=== PATIENT | female | born 1975 | race Caucasian/White ===

== ENCOUNTER 2023-04-09 14:54 | Outpatient (OUT) | payer BC, OTHER, MEDICAID, SELFPAY ==
[2023-04-09 16:27] LABS: Estimated Average Glucose 97 mg/dL; Free T3 2.45 pg/mL (2.18-3.98); Glucose 79 mg/dL (74-106); Thyroid Stimulating Hormone 0.704 uIU/mL (0.358-3.740)
[2023-04-09 17:38] LABS: Free T4 1.05 ng/dL (0.76-1.46)
[2023-04-11 04:07] LABS: Estradiol 34.1 pg/mL (.); Progesterone 0.5 ng/mL (.); Sex Horm Binding Glob, Serum 37.5 nmol/L (24.6-122.0); Thyroid Peroxidase (TPO) Ab <9 IU/mL (0-34)
[2023-04-13 13:08] LABS: Calcitriol(1,25 di-OH Vit D) 38.3 pg/mL (24.8-81.5)
[2023-04-13 17:12] LABS: Thyroglobulin Antibody <1.0 IU/mL (0.0-0.9)
[2023-04-13 18:07] LABS: Estrone, Serum 17 pg/mL (.)
[2023-04-14 15:07] LABS: Serotonin, Serum 11 ng/mL (31-207)
[2023-04-18 18:10] LABS: Free Insulin 7.9 uU/mL (.); Total Insulin 7.9 uU/mL (.)
[2023-04-19 04:06] LABS: Thyroglobulin (TG-RIA) 7.2 ng/mL (.)
[2023-04-19 15:07] LABS: Free Testosterone(Direct) 0.4 pg/mL (0.0-4.2); Testosterone 14 ng/dL (4-50)
[2023-04-20 03:06] LABS: Reverse T3, Serum 22.5 ng/dL (9.2-24.1)
[2023-04-29 22:06] LABS: Cortisol, Free Dialysis, LCMS 0.077 ug/dL (.)
== END 2023-04-09 14:55 | disposition home or self-care (01) ==
PROVIDERS: PCP Family Medicine; Visit Provider Obstetrics & Gynecology
DX: E88.81 Metabolic syndrome and other insulin resistance (principal); E34.9 Endocrine disorder, unspecified
CPT/HCPCS: 36415; 82306; 82530; 82627; 82652; 82670; 82679; 82728; 82947; 83036; 83525; 83527; 84144; 84260; 84270; 84402; 84403; 84432; 84436; 84439; 84443; 84481; 84482; 84681; 86376; 86800

== ENCOUNTER 2023-07-08 08:08 | Outpatient (OUT) | payer BC, OTHER, MEDICAID, SELFPAY ==
--- NOTE | 2023-07-08 08:17 | MM_ITS ---
Patient Name: JOHANNA SHANNON MR#: [id number] : 1975 Exam Date: 07/08/2023 Ordering Doctor: DR Nato Garcia . RADIOLOGY REPORT PROCEDURE: MM TOMOSYNTHESIS DIAGNOSTIC BI, 07/08/2023, 08:24 US BREAST LT LIMITED, 07/08/2023, 08:48 COMPARISON: MAMMO ESVIN SCREEN, 06/21/2019. INDICATIONS: Breast Lump Calculator Name NCI Breast Cancer Risk Assessment Tool 5 Year Breast Cancer Risk 0.60% Lifetime Breast Cancer Risk 6.30% Personal Breast Cancer No Personal Ovarian Cancer No Treatments None Family Cancers None LOCATION: [facility] BREAST COMPOSITION: Scattered areas fibroglandular density. FINDINGS: DIAGNOSTIC CATEGORY 2--BENIGN FINDING. NO CHANGE FROM COMPARISON. Scattered benign-appearing calcifications are present. Scattered benign-appearing lymph nodes are present. Additional mammographic views were obtained for breast implant evaluation and show benign capsular calcifications, but no other implant-related abnormalities. RIGHT BREAST: No significant suspicious finding. Stable reniform nodule upper outer quadrant, posterior breast likely intramammary lymph node LEFT BREAST: No significant suspicious finding. No mammographic or ultrasound abnormality to correspond to the patient's palpable abnormality, anterior, 10 o'clock left breast RECOMMENDATIONS: ROUTINE MAMMOGRAM AND CLINICAL EVALUATION IN 12 MONTHS. PLEASE NOTE: A NORMAL MAMMOGRAM DOES NOT EXCLUDE THE POSSIBILITY OF BREAST CANCER. A CLINICALLY SUSPICIOUS PALPABLE LUMP SHOULD BE BIOPSIED. Dictated by: Gray rFancis MD on 07/08/2023 at 09:19 Approved by: Gray Francis MD on 07/08/2023 at 09:22
--- NOTE | 2023-07-08 08:23 | US_ITS ---
Patient Name: JOHANNA SHANNON MR#: [id number] : 1975 Exam Date: 07/08/2023 Ordering Doctor: DR Nato Garcia . RADIOLOGY REPORT PROCEDURE: MM TOMOSYNTHESIS DIAGNOSTIC BI, 07/08/2023, 08:24 US BREAST LT LIMITED, 07/08/2023, 08:48 COMPARISON: MAMMO ESVIN SCREEN, 06/21/2019. INDICATIONS: Breast Lump Calculator Name NCI Breast Cancer Risk Assessment Tool 5 Year Breast Cancer Risk 0.60% Lifetime Breast Cancer Risk 6.30% Personal Breast Cancer No Personal Ovarian Cancer No Treatments None Family Cancers None LOCATION: [facility] BREAST COMPOSITION: Scattered areas fibroglandular density. FINDINGS: DIAGNOSTIC CATEGORY 2--BENIGN FINDING. NO CHANGE FROM COMPARISON. Scattered benign-appearing calcifications are present. Scattered benign-appearing lymph nodes are present. Additional mammographic views were obtained for breast implant evaluation and show benign capsular calcifications, but no other implant-related abnormalities. RIGHT BREAST: No significant suspicious finding. Stable reniform nodule upper outer quadrant, posterior breast likely intramammary lymph node LEFT BREAST: No significant suspicious finding. No mammographic or ultrasound abnormality to correspond to the patient's palpable abnormality, anterior, 10 o'clock left breast RECOMMENDATIONS: ROUTINE MAMMOGRAM AND CLINICAL EVALUATION IN 12 MONTHS. PLEASE NOTE: A NORMAL MAMMOGRAM DOES NOT EXCLUDE THE POSSIBILITY OF BREAST CANCER. A CLINICALLY SUSPICIOUS PALPABLE LUMP SHOULD BE BIOPSIED. Dictated by: Gray Francis MD on 07/08/2023 at 09:19 Approved by: Gray Francis MD on 07/08/2023 at 09:22
== END 2023-07-08 08:09 | disposition home or self-care (01) ==
LOC: MAMMO 08:08
PROVIDERS: PCP Family Medicine; Visit Provider Obstetrics & Gynecology
DX: N63.22 Unspecified lump in the left breast, upper inner quadrant (principal)
CPT/HCPCS: 76642; 77066; G0279

== ENCOUNTER 2024-09-20 20:43 | Outpatient (REF) | payer BC, MEDICARE, SELFPAY ==
--- OUTSIDE RECORDS SUMMARY | 2024-09-20 20:48 | XMS_ITS | CCD ---
Author Organization [facility] Care Team Providers Care Air Cargo Specialist Supervisor Name Role Phone DO Bret Song Primary Care Provider [phone] MD Sung Hutchison Attending Provider [phone] Unavailable Primary Care Provider Unavailabl e Unavailable Primary Care Provider Unavailabl e RADHA ., DR GA Admitting Unavailable RADHA ., DR GA Attending Unavailable DUNCAN, DR LÓPEZ Primary Care Unavailable RADHA ., DR GA Consulting Unavailable OSCAR, DR ADITYA Lamar Admitting Unavailable WEST, DR ADITYA Lamar Attending Unavailable DUNCAN, DR LÓPEZ Primary Care Unavailable WEST, DR ADITYA Lamar Consulting Unavailable RADHA ., DR GA Admitting Unavailable RADHA ., DR GA Attending Unavailable DUNCAN, DR LÓPEZ Primary Care Unavailable RADHA ., DR GA Admitting Unavailable RADHA ., DR GA Attending Unavailable DUNCAN, DR LÓPEZ Primary Care Unavailable RADHA ., DR GA Consulting Unavailable RADHA ., DR GA Admitting Unavailable RADHA ., DR GA Attending Unavailable DUNCAN, DR LÓPEZ Primary Care Unavailable RADHA ., DR GA Consulting Unavailable DO Bret Song Primary Care Provider [phone] MD Sung Hutchison Attending Provider DO Robert Dubois Emergency Provider [phone] DO Cole Flores Admit Provider [phone] DO Cole Flores Attending Provider [phone] MD Janeth Scherer Attending Provider [phone] DO Jay Walker Other Provider MD Zion Valderrama Other Provider Bret Song Unavailable Unavailable Unavailable Dr. Bret Song Primary Care Unavaila norm Swift, Ms. Crys Rosenberg Referring Unavailable Jamison, Ms. Crys Rosenberg Attending Unavailable Dr. Bret Song Primary Care UnavailDO Bret Winn Primary Care Provider MD Sundeep Hutchison Attending Provider [phone] DO Bret Song Primary Care Provider [phone] MARY Shi Attending Provider Sundeep Hutchison Attending Unavailable Sundeep Hutchison Admitting Unavailable Bret Song Primary Care Unavailable ObPhyllis stapleton Attending Unavailable Obpieter, Phyllis Price Admitting Unavailable Bret Song Primary Care Unavailable Cole Flores Admitting UnavailMary Ann Mariaa Attending Unavailable Bret Song Primary Care Unavailable Jay Walker Consulting Unavailable Zion Valderrama Consulting Unavailable ObPhyllis stapleton Attending Unavailable Obpieter, Phyllis L Admitting Unavailable Bret Song Primary Care Unavailable DO Bret Song Primary Care Provider MARY Shi Attending Provider KRISTINE WINCHESTER Primary Care Physician Unavailable Primary Care Provider Unavailabl e ANNABELLA, JUDICIAL ASSISTANT KRISTINE A Attending Unavailabl e ANNABELLA, JUDICIAL ASSISTANT KRISTINE A Admitting UnavailASIA Vazquez Attending Unavailable BRET SONG Primary Care Unavailable Bret Song DO Primary Care Provider [phone] ANNABELLA, KRISTINE A Attending Unavailable ANNABELLA, KRISTINE A Attending Unavailable ANNABELLA, KRISTINE A Attending Unavailable ANNABELLA, KRISTINE A Attending Unavailable ANNABELLA, KRISTINE A Attending Unavailable ANNABELLA, KRISTINE A Attending Unavailable ANNABELLA, KRISTINE A Attending Unavailable ANNABELLA, KRISTINE A Attending Unavailable ANNABELLA, KRISTINE A Attending Unavailable ANNABELLA, KRISTINE A Admitting Unavailable ANNABELLA, KRISTINE A Referring Unavailable Vivienne Dorsey Attending Unavailable [facility] Kaylee Price Unavailable BRET SONG Attending Unavailable DUNCAN, BRET Rosenberg Referring Unavailable DUNCAN, BRET Rosenberg Attending Unavailable DUNCAN, BRET Rosenberg Referring Unavailable ESCALANTE, IWONA T Referring Unavailable ESCALANTE, IWONA T Attending Unavailable ESCALANTE, IWONA T Referring Unavailable ESCALANTE, IWONA T Referring Unavailable ESCALANTE, IWONA T Referring Unavailable ESCALANTE, IWONA T Attending Unavailable ESCALANTE, IWONA T Referring Unavailable ESCALANTE, IWONA T Attending Unavailable ESCALANTE, IWONA T Referring Unavailable ESCALANTE, IWONA T Attending Unavailable ESCALANTE, IWONA T Referring Unavailable ESCALANTE, IWONA T Referring Unavailable ESCALANTE, IWONA T Attending Unavailable GUERRA, KAYLEE L Attending Unavailable ESCALANTE, IWONA T Referring Unavailable ESCALANTE, IWONA T Attending Unavailable ESCALANTE, IWONA T Referring Unavailable GUERRA, KAYLEE L Attending Unavailable GUERRA, KYALEE L Attending Unavailable GUERRA, KAYLEE L Attending Unavailable RADHA, NATO Attending Unavailable GUERRA, KAYLEE L Attending Unavailable ANNABELLA, KRISTINE A Attending Unavailable ANNABELLA, KRISTINE A Attending Unavailable ANNABELLA, KRISTINE A Attending Unavailable Allergies Allergy Classification Reported Allergen(s) Allergy Type Date of Onset Reaction(s) Facility (9 sources) Amoxicillin Drug Allergy 9 Unknown Reaction [facility] Comment on above: causes severe yeast infections (9 sources) pain medications Allergy to substance 9 Unknown Reaction [facility] Comment on above: Patient verbalizes a llergies to all pain medications but Toradol and Dilaudid (2 sources) Morphine Drug Allergy [facility] Repository (2 sources) Penicillin Drug Allergy [facility] Repository (2 sources) Acetaminophen / HYDROcodone; Translations: [Vicodin TABS] Drug Allergy [facility] [place] [facility] [address] Work Phone: (2 sources) acetaminophen / propoxyphene; Translations: [Darvocet-N 100 TABS] Drug Allergy [facility] [place] [facility] [address] Work Phone: (3 sources) opioid-like analgesics 1; Translations: [opioid-like analgesics] Propensity to adverse reactions to drug nausea [facility] Comment on above: needs reglan ordered if ordered (20 sources) Morphine; Translations: [MORPHINE] Drug Allergy 5 Anaphylaxis [facility] (20 sources) Penicillin G; Translations: [PENICILLIN G] Drug Allergy 5 Diarrhea, Hives, Itching [facility] (20 sources) Propoxyphene Drug Allergy 5 Hives, Unknown, Itching [facility] (20 sources) rizatriptan Drug Allergy 3 Unknown [facility] (20 sources) Tetracycline Drug Allergy 3 Nausea Only [facility] (2 sources) Acetaminophen / Codeine; Translations: [ACETAMINOPHEN-CO DEINE] Drug Allergy 5 Intolerance [facility] Repository (2 sources) Acetaminophen / HYDROcodone; Translations: [HYDROCODONE-ACET AMINOPHEN] Drug Allergy 5 Hives, Swelling, Itching, Vomiting [facility] Repository (2 sources) Acetaminophen / oxyCODONE; Translations: [OXYCODONE-ACETAM INOPHEN] Drug Allergy 5 Hives, Swelling, Itching, Vomiting [facility] Repository (2 sources) PROPOXYPHENE N-ACETAMINOPHEN; Translations: [PROPOXYPHENE N-ACETAMINOPHEN] Propensity to adverse reactions to drug (disorder) 5 Hives, Intolerance, Itching [facility] Repository (2 sources) opioid-like analgesics; Translations: [opioid-like analgesics] Propensity to adverse reactions (disorder) [facility] Repository Medications Current Medications Medication Drug Class(es) Dates Sig (Normalized) Sig (Original) 5-hydroxytryptophan 100 mg oral capsule (1 source) 5-Hydroxytryptop cheema n (5-HTP) 100 mg cap Take by mouth. 2 in the morning 1 at night Active acetaminophen 325 mg / oxyCODONE hydrochloride 5 mg oral tablet (2 sources) Opioid Agonist Start: 05-09-2024 End: 05-14-2024 take 1-2 tablets by mouth every four hours for pain oxyCODONE-acetamin ophen (Percocet) 5-325 MG tablet Indications: Left shoulder pain, unspecified chronicity Take 1-2 tablets by mouth every 4 (four) hours if needed for severe pain for up to 5 days 30 tablet 05/09/2024 05/14/2024 Active ALPRAZolam 1 mg oral tablet (20 sources) Benzodiazepine Start: 07-07-2024 take 1 tablet by mouth three times daily as needed Alprazolam 1 mg tablet Active 1 MG PO Three times daily as needed July 07, 2024:00am Start: 06-29-2024 take 1 tablet by gonzalez th every twenty-four hours as needed ALPRAZolam (XANAX) 1 mg tablet Take 1 tablet by mouth at bedtime as needed. 06/29/2024 Active Start: 04-19-2024 take 1 tablet by mouth once da marleni alprazolam 1 mg Tab 1 mg = 1 tab(s), Oral, Daily, # 30 tab(s), Refills(s) 0, Pharmacy: [facility] [id number] [facility], 160, cm, 04/19/24 13:56:00 EDT, Height/Length Dosing, 89.9, kg, 04/19/24 13:56:00 EDT, Weight Dosing Start Date: 04/19/24 Status: Ordered Start: 08-26-2021 take 1 tablet by gonzalez th three times daily alprazolam 1 mg Tab 1 mg = 1 tab(s), Oral, TID, Refills(s) 0, Other (see comment) Start Date: 08/26/21 Status: Ordered Start: 08-04-2019 End: 07-07-2024 take 1 tablet by mouth twice daily as needed for anxiety ALPRAZolam (Xanax) 1 MG tablet Indications: Anxiety Take 1 tablet (1 mg) by mouth 2 (two) times a day as needed for anxiety 30 tablet 02/03/2024 Active Start: 08-31-2012 End: 06-29-2024 Alprazolam 0.5 mg tablet Discontinued TABLET June 22, 2018 11:00pm June 23, 2018 6:33pm 24 hr amphetamine aspartate 7.5 mg / amphetamine sulfate 7.5 mg / dextroamphetamine saccharate 7.5 mg / dextroamphetamine sulfate 7.5 mg extended release oral capsule (20 sources) Central Nervous System Stimulant Start: 08-04-2019 take 1 capsule by mouth once daily amphetamine-dextroamphetamine XR (Adderall XR) 30 MG 24 hr capsule Indications: Attention deficit hyperactivity disorder (ADHD), combined type (CMS/HCC) Take 1 capsule (30 mg) by mouth 1 (one) time each day at the same time 30 capsule 02/03/2024 Active Amphetamine-Dext roamphetamine (ADDERALL) 30 mg tablet Take 30 mg by mouth as needed. Active ARIPiprazole 5 mg oral tablet (7 sources) Atypical Antipsychotic Start: 07-26-2024 take 1 tablet by mouth once daily Abilify 5 MG tablet Take 5 mg by mouth Daily 07/26/2024 Active Start: 07-07-2024 take 1 tablet by gonzalez th once daily Aripiprazole (Abilify) 2 mg tablet Active 2 MG PO Daily July 07, 2024 12:00am Start: 06-29-2024 take 1 tablet by gonzalez th once daily ARIPiprazole (ABILIFY) 2 mg tablet Take 1 tablet by mouth once daily. 06/29/2024 Active Start: 06-21-2024 take 1 tablet by gonzalez th once daily Abilify 2 mg Tab 2 mg, Oral, Daily, # 30 tab(s), Refills(s) 0, Pharmacy: [facility] [id number] [facility], 160, cm, 06/21/24 14:47:00 EDT, Height/Length Dosing, 87.6, kg, 06/21/24 14:47:00 EDT, Weight Dosing Start Date: 06/21/24 Status: Ordered [id number] O3 137 mcg-50 mcg- 0.9 % ksps (1 source) azelas-fluticaso [id number] 137 mcg-50 mcg- 0.9 % ksps Use in the nose. Active azelastine hydrochloride 0.1 37 mg/actuat metered dose nasal spray (1 source) Histamine-[address] ar t: take 1 spray(s ) nasal route twice daily Azelastine 137 mcg (0.1 %) spray,non-aerosol Active 1 SPRAY INTRANASAL Twice daily July 07, 2024 12:00am administer into each nostril azelastine hydrochloride 0.1 37 mg/actuat / fluticasone propionate 0.05 mg/actuat metered dose nasal spray (3 sources) Corticostero id, Histamine-[address] ar t: 24 Dymista 137 mcg-50 mcg/inh n [place] spray 1 spray(s), Nasal, BID, 23 gm, Refill(s) 1, [facility]/pharmacy #[id number], 160, cm, 06/15/24 11:44:00 EDT, Height/Length Dosing, 88.3, kg, 06/15/24 11:44:00 EDT, Weight Dosing Start Date: 06/15/24 Status: Ordered Start: 03-08-2024 Dymista 137 mc g-50 mcg/inh nasal spray 1 spray(s), Nasal, BID, 23 gm, Refill(s) 0, other reason (Rx) Start Date: 03/08/24 Status: Ordered baclofen 20 mg oral tablet (20 sources) gamma-Aminobutyric Acid-ergic Agonist Start: 07-07-2024 take 1 tablet by mouth twice daily as needed Baclofen 10 mg tablet Active 10 MG PO Twice daily as needed July 07, 2024 12:00am Start: 07-07-2024 take 1 tablet by gonzalez th once daily Baclofen 20 mg tablet Active 20 MG PO Daily July 07, 2024 12:00am Start: 06-29-2024 baclofen 10 mg tablet Take 2 tablets by mouth as needed. 06/29/2024 Active Start: 03-22-2024 End: 06-29-2024 take 1 tablet by mouth three times daily baclofen 10 mg Tab 10 mg = 1 tab(s), Oral, TID, # 270 tab(s), Refills(s) 0, Pharmacy: [place] [facility] [id number] [facility], 160, cm, 04/19/24 13:56:00 EDT, Height/Length Dosing, 89.9, kg, 04/19/24 13:56:00 EDT, Weight Dosing Start Date: 04/19/24 Status: Ordered Start: 02-04-2024 BACLOFEN 10 MG TABLET BACLOFEN 10 MG TABLET Start Date: 02/04/24 Status: Ordered Start: 11-04-2023 take 1 tablet by gonzalez th once daily for muscle spasms baclofen (Lioresal) 10 MG tablet Indications: Fibromyalgia take 1 tablet by mouth daily if needed for muscle spasm 30 tablet 3 11/04/2023 Active Capmist DM 15 mg-400 mg-60 m g oral tablet (5 sources) Start: 06-15-2024 Capmist DM 15 mg-400 mg-60 mg oral tablet 1 tab(s), Oral, BID, 60 tab(s), Refill(s) 3, [id number], 160, cm, 06/15/24 11:44:00 EDT, Height/Length Dosing, 88.3, kg, 06/15/24 11:44:00 EDT, Weight Dosing Start Date: 06/15/24 Status: Ordered Start: 04-26-2024 Capmist DM 15 mg-400 mg-60 mg oral tablet See Instructions, 30 tab(s), Refill(s) 0, take 1 tablet by mouth three times a day if needed, [facility] [id number] [facility], 160, cm, 04/19/24 13:56:00 EDT, Height/Length Dosing, 89.9, kg, 04/19/24 13:56:00 EDT, Weight Dosing Start Date: 04/26/24 Status: Ordered Start: 03-08-2024 [facility] Capmist DM 15 mg-400 mg-60 mg oral tablet 1 tab(s), Oral, BID, 60 tab(s), Refill(s) 1, [facility] [id number] [facility], 160, cm, 03/08/24 13:40:00 EDT, Height/Length Dosing, 91.6, kg, 03/08/24 13:40:00 EDT, Weight Dosing Start Date: 03/08/24 Status: Ordered celecoxib 200 mg oral capsule (20 sources) Nonsteroidal Anti-inflammatory Drug Start: 01-20-2023 take 1 capsule by mouth twice daily Celecoxib 200 mg capsule Active 200 MG PO Twice daily January 19, 2023 11:00pm Start: 08-26-2021 take 1 capsule by [facility] once daily celecoxib 200 mg Cap 200 mg = 1 cap(s), Oral, Daily, Refills(s) 0, Inflammation Start Date: 08/26/21 Status: Ordered cyclobenzaprine hydrochloride 10 mg oral tablet (20 sources) Muscle Relaxant Start: 05-05-2022 take 1 tablet by mouth every eight hours as needed cyclobenzaprine (Flexeril) 10 MG tablet Take 10 mg by mouth every 8 (eight) hours if needed. 05/05/2022 Active dexamethasone 1 mg oral tablet (1 source) Corticosteroid Start: 06-29-2024 dexAMETHasone (DECADRON) 1 mg tablet 1 mg at bedtime before early AM (8:00 AM) blood test. 1 tablet 06/29/2024 Active dextromethorphan hydrobromide 15 mg / guaiFENesin 400 mg / pseudoephedrine hydrochloride 60 mg oral tablet (2 sources) alpha-Adrenergic Agonist, Uncompetitive U-rmzfio-T-aspartat e Receptor Antagonist, Sigma-1 Agonist Start: 07-07-2024 take 1 tablet by mouth once daily as needed, then take 2 tablets by mouth every four to six hours as needed Pseudoephedrine-Dm- Guaifenesin (Capmist Dm) 60-15-400 mg tablet Active 0 PO EVERY 4-6 HOURS as needed July 07, 2024 12:00am 1 tab once a day then 2 prn orally every 4-6 hours PRN; pseudoephedrine- DM-guaiFENesin (CAPMIST DM) 60-15-400 mg tab Take by mouth as needed. Active doxycycline hyclate 100 mg oral capsule (4 sources) Tetracycline-class Drug Start: 06-15-2024 End: 07-13-2024 take 1 capsule by mouth twice daily Doxycycline Hyclate 100 mg capsule Active 100 MG PO Twice daily July 07, 2024 12:00am Start: 02-04-2024 take 1 capsule by [facility] twice daily doxycycline hyclate 100 mg Cap 100 mg = 1 cap(s), Oral, BID, 20 EA, 0 Refill(s), take 1 capsule by mouth IN THE MORNING and take 1 capsule BEFORE ... (REFER TO PRESCRIPTION NOTES)., # 20 cap(s), Refills(s) 1, Pharmacy: [place] [id number] [facility], 160, cm, 02/04/24 13:10:00 EDT, Height/Length Dosing, 93.4, kg, 02/04/24 13:20:00 EDT, Weight Dosing Start Date: 02/04/24 Status: Ordered DULoxetine 60 mg delayed release oral capsule (6 sources) Serotonin and Norepinephrine Reuptake Inhibitor Start: 01-21-2023 take 1 capsule by mouth once daily Duloxetine 60 mg capsule,delayed release(DR/EC) Active 60 MG PO Daily January 20, 2023 11:00pm estradiol 0.25 mg estriol 1 mg progesterone 50 mg per 1 g cream (CPD) (1 source) estradiol 0.25 m g estriol 1 mg progesterone 50 mg per 1 g cream (CPD) Active folic acid 1 mg oral tablet (20 sources) Start: 01-20-2023 take 1 tablet by mouth in the morning folic acid (Folvite) 1 MG tablet Take 1,000 mcg by mouth in the morning. 01/21/2023 Active furosemide 20 mg oral tablet (20 sources) Loop Diuretic Start: 04-06-2019 take 1 tablet by mouth once daily Lasix 20 mg Tab 20 mg = 1 tab(s), Oral, Daily, # 7 tab(s), Refills(s) 0 Start Date: 04/06/19 Status: Ordered gabapentin 400 mg oral capsule (20 sources) Anti-epileptic Agent Start: 02-04-2024 gabapentin 300 mg Cap 60 EA, 0 Refill(s), take 1 capsule by mouth twice a day, Refills(s) 0 Start Date: 02/04/24 Status: Ordered Start: 12-14-2023 End: 12-13-2024 take 1 capsule by mouth in the morning gabapentin (Neurontin) 400 MG capsule Indications: THEO (generalized anxiety disorder) (CMS/HCC) Take 1 capsule (400 mg) by mouth in the morning and 1 capsule (400 mg) before bedtime. 60 capsule 5 12/14/2023 12/13/2024 Active hydroxychloroquine sulfate 200 mg oral tablet (20 sources) Antimalarial, Antirheumatic Agent Start: 08-26-2021 take 1 tablet by mouth in the morning hydroxychloroquine (Plaquenil) 200 MG tablet Take 1 tablet by mouth in the morning and 1 tablet before bedtime. 02/17/2023 Active hydrOXYzine pamoate 25 mg oral capsule (20 sources) Antihistamine Start: 07-07-2024 Hydroxyzine Pamoate 25 mg capsule Active 25 MG PO .prn as needed July 07, 2024 12:00am ibuprofen 600 mg oral tablet (20 sources) Nonsteroidal Anti-inflammatory Drug Start: 03-31-2024 take 1 tablet by mouth every six hours ibuprofen 600 MG tablet Take 1 tablet by mouth every 6 (six) hours 03/31/2024 Active Start: 08-26-2021 take 1 tablet by gonzalez th every six hours as needed for pain ibuprofen 400 mg Tab 400 mg = 1 tab(s), Oral, q6hr, PRN as needed for pain Start Date: 08/26/21 Status: Ordered ketorolac tromethamine 10 mg oral tablet (11 sources) Nonsteroidal Anti-inflammatory Drug, Cyclooxygenase Inhibitor Start: 08-04-2019 Ketorolac 10 mg tablet Active 10 MG PO As Directed as needed for Migraine Headache August 04, 2019 12:00am Start: 04-15-2013 Ketorolac Trom ethamine 10 MG Oral Tablet Quantity: 0 Refills: 0 Ordered: 15-Apr-2013 Jonas Solis MD Start : 15-Apr-2013 Active levothyroxine sodium 0.05 mg oral tablet (20 sources) l-Thyroxine Start: 08-26-2021 take 1 tablet by mouth once daily Synthroid 50 mcg (0.05 mg) Tab 50 mcg = 1 tab(s), Oral, Daily, Thyroid Start Date: 08/26/21 Status: Ordered Start: 06-23-2018 End: 06-29-2024 take 1 tablet by mouth once daily levothyroxine (SYNTHROID) 50 mcg tablet Take 1 tablet by mouth once daily. 06/29/2024 Active Magnesium (20 sources) Magnesium 125 MG capsule Take by mouth Active magnesium amino acid chelate 100 mg oral tablet (1 source) Start: 4 Magnesium Amino Acid Chelate 100 mg tablet Active MG PO July 07, 2024 12:00am magnesium hydroxide 1200 mg chewable tablet (1 source) take 1200 mg by mouth once daily magnesium hydroxide 1,200 mg chew Take by mouth once daily. Active magnesium oxide 500 mg oral tablet (3 sources) Start: 2 take 1 tablet by mouth once daily magnesium oxide 500 mg oral tablet 500 mg = 1 tab(s), Oral, Daily, Prophylaxis Start Date: 08/26/21 Status: Ordered 40 ml methotrexate 25 mg/ml injection (20 sources) Folate Analog Metabolic Inhibitor Start: 3 Methotrexate Sodium (methotrexate PF) 1 GM/40ML chemo syringe 03/13/2023 Active Start: 01-20-2023 End: 07-07-2024 inject 0.8 mg by subcutaneous injection every week Methotrexate Sodium (Pf) 25 mg/mL solution Discontinued 0.8 MG SUBCUT every week January 19, 2023 11:00pm July 07, 2024 11:11am Start: 01-20-2023 Methotrexate S odium (methotrexate PF) 1 GM/40ML chemo syringe 03/13/2023 Active methotrexate (JYLAMVO) 2 mg/mL solution (1 source) methotrexate (JY LAMVO) 2 mg/mL solution Take by mouth one time a week. Active metoclopramide 10 mg oral tablet (20 sources) Dopamine-2 Receptor Antagonist Start: 07-07-20 take 1 tablet by mouth twice daily Metoclopramide Hcl 10 mg tablet Active 10 MG PO Twice daily July 07, 2024 12:00am Start: 01-20-2023 End: 01-21-2023 take 1 tablet by mouth twice daily at mealtime Metoclopramide Hcl (Reglan) 10 mg Tablet Discontinued 10 MG PO Twice daily with meals January 19, 2023 11:00pm January 21, 2023 2:39pm Start: 08-04-2019 End: 01-21-2023 Metoclopramide Hcl 5 mg tabl et Discontinued 5 MG PO As Directed as needed for Nausea August 04, 2019 12:00am January 21, 2023 2:39pm Naltrexone (20 sources) Opioid Antagonist Start: 06-29-2024 take 1 capsule by mouth once daily naltrexone capsule 0.5 mg (CPD) Take 1 capsule by mouth once daily. 06/29/2024 Active Start: 08-26-2021 take 4 tablets by [facility] once daily naltrexone Oral, Daily, 4 tabs per day, Other (see comment) Start Date: 08/26/21 Status: Ordered take 6 mg by mouth i n the morning naltrexone (Depade) 50 MG tablet Take 6 mg by mouth in the morning. Active olmesartan medoxomil 20 mg oral tablet (20 sources) Angiotensin 2 Receptor Michael Start: 01-21-2023 End: 06-29-2024 take 1 tablet by mouth once daily olmesartan (BENIcar) 20 MG tablet Indications: Benign essential HTN (CMS/HCC) take 1 tablet by mouth once daily as directed 90 tablet 12/17/2023 Active omeprazole 20 mg delayed release oral capsule (20 sources) Proton Pump Inhibitor Start: 02-20-2023 take 1 capsule by mouth in the morning omeprazole (PriLOSEC) [address] capsule Take 20 mg by mouth in the morning. 02/20/2023 Active Start: 01-20-2023 End: 01-21-2023 take 1 capsule by mouth once daily Omeprazole 20 mg capsule,delayed release(DR/EC) Active 20 MG PO Daily January 19, 2023 11:00pm Start: 01-20-2023 End: 01-21-2023 Omeprazole Discontinued MG [facility] 2022 12:00am January 21, 2023 3:03pm ONETOUCH SILVINA ULTRA (3 sources) Start: 02-04-2024 ONETOUCH SILVINA U LTRA ONETOUCH SILVINA ULTRA Start Date: 02/04/24 Status: Ordered predniSONE 10 mg oral tablet (3 sources) Start: 08-30-2021 take 10 mg by mouth three times daily predniSONE 10 mg, Oral, TID Start Date: 08/30/21 Status: Ordered Pseudoephedrine-DM- GG (CAPMIST DM PO) (20 sources) Pseudoephedrine- DM- GG (CAPMIST DM PO) Take by mouth Active SUMAtriptan 20 mg/actuat nasal spray (20 sources) Serotonin-1b and Serotonin-1d Receptor Agonist Start: 07-07-2024 Sumatriptan 20 mg/actuation spray,non-aerosol Active 20 MG INTRANASAL Every 2 hours as needed July 07, 2024 12:00am administer into one nostril as a single dose; if 2nd dose needed,administer into other nostril after at least 2 hrs, NTE 2 doses (40 mg) per episode Start: 05-23-2024 Start: 02-04-2024 sumatriptan 20 mg/inh nasal spray = 1 spray(s), Nasal, Once, PRN for migraine headache, # 1 EA, Refills(s) 0 Start Date: 02/04/24 Status: Ordered Start: 04-07-2023 SUMAtriptan (I mitrex) 20 MG/ACT nasal spray Indications: Migraine without status migrainosus, not intractable, unspecified migraine type (CMS/HCC) Administer 1 spray (20 mg) into one nostril 1 (one) time if needed for migraine (q24hrs). 6 each 3 04/07/2023 Active SUMAtriptan (IMI TREX) 20 mg/actuation nasal spray Use 20 mg in the nose as needed. May repeat dose after 2 hours if needed. Maximum daily dose is 40 mg per day. Active Tirzepatide (1 source) Start: 07-07-2024 Tirzepatide (Mounjaro) 12.5 mg/0.5 mL pen injector Active 12.5 MG SUBCUT every week July 07, 2024 12:00am tirzepatide (MOUNJARO) 12.5 mg/0.5 mL pen injector (1 source) Start: 06-29-2024 inject 12.5 mg by subcutaneous injection every week tirzepatide (MOUNJARO) 12.5 mg/0.5 mL pen injector Inject 12.5 mg subcutaneously one time a week. 06/29/2024 Active Tirzepatide (Mounjaro) 12.5 MG/0.5ML solution pen-injector (20 sources) Start: 12-14-2023 Tirzepatide (Mounjaro) 12.5 MG/0.5ML solution pen-injector Indications: PCOS (polycystic ovarian syndrome) , Insulin resistance Inject 12.5 mg under the skin every 7 (seven) days 2 mL 5 12/14/2023 Active tiZANidine 4 mg oral tablet (20 sources) Central alpha-2 Adrenergic Agonist Start: 07-07-2024 take 3 tablets by mouth once daily at bedtime as needed Tizanidine 4 mg tablet Active 0 PO Daily at bedtime as needed July 07, 2024 12:00am 12mg at bedtime orally daily at bedtime PRN; Start: 01-20-2023 End: 07-07-2024 tiZANidine (Zanaflex) 4 MG t ablet Take 4 mg by mouth as needed at bedtime for muscle spasms. 03/13/2023 Active End: 06-29-2024 tiZANidine HCl (ZANAFLEX) 4 mg capsule Take 8 mg by mouth daily at bedtime. 06/29/2024 Discontinued (Discontinued by another Health Care Provider) traZODone hydrochloride 50 mg oral tablet (20 sources) Serotonin Reuptake Inhibitor Start: 07-07-2024 Trazodone 50 mg tablet Active 0 PO Daily July 07, 2024 12:00am take 75 mg daily orally daily; Start: 03-08-2024 take 1 tablet by gonzalez th once daily traZODONE 100 mg Tab 100 mg = 1 tab(s), Oral, Daily, # 30 tab(s), Refills(s) 2, Pharmacy: [facility] [id number] [facility], 160, cm, 03/08/24 13:40:00 EDT, Height/Length Dosing, 91.6, kg, 03/08/24 13:40:00 EDT, Weight Dosing Start Date: 03/08/24 Status: Ordered Start: 07-08-2023 End: 07-07-2024 take 1.5 tablets by mouth at bedtime traZODone (Desyrel) 50 MG tablet Indications: Primary insomnia Take 1.5 tablets (75 mg) by mouth at bedtime. 135 tablet 3 07/08/2023 Active Start: 08-04-2019 End: 07-07-2024 Trazodone 50 mg Tablet Disco ntinued 25 MG PO Daily at bedtime August 04, 2019 12:00am July 07, 2024 11:01am Start: 08-04-2019 take 25 mg by mouth once daily at bedtime Trazodone Active 25 MG PO Daily at bedtime August 04, 2019 1:00am Start: 03-28-2013 End: 06-29-2024 take 1 tablet by mouth at bedtime traZODone HCl - 50 MG Oral Tablet TAKE 1 TABLET AT BEDTIME Quantity: 90 Refills: 3 Ordered: 17-Sep-2015 Kameron Frederick Start : 28-Mar-2013 Active verapamil hydrochloride 120 mg extended release oral tablet (20 sources) Calcium Channel Michael Start: 01-21-2023 End: 07-07-2024 take 1 tablet by mouth at bedtime verapamil SR (Calan SR) 120 MG ER tablet Indications: Benign essential HTN (CMS/HCC) Take 1 tablet (120 mg) by mouth at bedtime. Do not crush or chew. 90 tablet 3 04/07/2023 Active End: 06-29-2024 take 1 tablet by mouth once daily verapamil 120 mg tablet Take 120 mg by mouth once daily. 06/29/2024 Discontinued Vitamin D 1000 intl units Tab (3 sources) Start: 08-26-2021 take 1 tablet by mouth once daily Vitamin D 1000 intl units Tab 25 mcg = 1 tab(s), Oral, Daily, Prophylaxis Start Date: 08/26/21 Status: Ordered Completed/Discontinued Medications Medication Drug Class(es) Dates Sig (Normalized) Sig (Original) 0.5 ML tirzepatide 25 MG/ML Auto-Injector [Mounjaro] (3 sources) Start: 08-27-2024 inject 0.5 mL by subcutaneous injection every week Start: 02-04-2024 inject 0.5 mL by sub cutaneous injection every week Mounjaro 12.5 mg/0.5 mL subcutaneous solution INJECT 0.5ML UNDER THE SKIN ONE TIME PER WEEK Start Date: 02/04/24 Status: Ordered busPIRone hydrochloride 15 m g oral tablet (20 sources) Start: 08-28-2015 busPIRone HCl - 15 MG Oral Tablet Quantity: 90 Refills: 0 Ordered: 28-Aug-2015 DO Start : 28-Aug-2015 Active End: 06-29-2024 busPIRone (Buspar) 15 MG tab let Take 15 mg by mouth in the morning and 15 mg at noon and 15 mg in the evening. Active cephalexin 500 mg oral tablet (1 source) Cephalosporin Antibacterial End: 06-29-2024 Cephalexin 500 mg tab Take by mouth two times a day. 06/29/2024 Discontinued (Discontinued by another Health Care Provider) cholecalciferol 0.025 mg oral tablet (6 sources) Vitamin D Start: 01-20-2023 End: 07-07-2024 take 1 tablet by mouth once daily Cholecalciferol (Vitamin D3) (Vitamin D3) 25 mcg (1,000 unit) Tablet Discontinued 25 MCG PO Daily January 19, 2023 11:00pm July 07, 2024 11:20am Cream Base (PCCA Vanpen Base) cream (18 sources) Start: 06-03-2022 End: 08-15-2024 Cream Base (PCCA Vanpen Base) cream 06/03/2022 08/15/2024 Discontinued Start: 06-03-2022 Cream Base (PC CA Vanpen Base) cream 06/03/2022 Active FLUoxetine 20 mg oral capsule (20 sources) Serotonin Reuptake Inhibitor Start: 01-20-2023 End: 07-07-2024 take 1 capsule by mouth at bedtime Fluoxetine 20 mg capsule Discontinued 20 MG PO Bedtime January 19, 2023 11:00pm July 07, 2024 11:20am Start: 08-04-2019 End: 07-07-2024 take 1 capsule by mouth once daily in the morning Fluoxetine (Prozac) 40 mg Capsule Discontinued 40 MG PO Every morning August 04, 2019 12:00am July 07, 2024 11:20am Start: 08-04-2019 take 2 capsules by m outh once daily at bedtime Fluoxetine (Prozac) 40 mg Capsule Active 80 MG PO Daily at bedtime August 04, 2019 1:00am HYDROmorphone hydrochloride 2 mg oral tablet (1 source) Opioid Agonist Start: 07-12-2016 End: 06-29-2024 take 1 tablet by mouth every four hours as needed HYDROmorphone (HYDROMORPHONE) 2 mg tablet Take 1 tablet by mouth every 4 hours as needed. 20 tablet 0 07/12/2016 06/29/2024 Discontinued (Discontinued by another Health Care Provider) levoFLOXacin 500 mg oral tablet (2 sources) Quinolone Antimicrobial Start: 04-19-2024 levofloxacin 500 mg Tab 5 EA, 0 Refill(s), take 1 tablet by mouth once daily for 5 days, Refills(s) 0 Start Date: 04/19/24 Status: Ordered Methotrexate Sodium, Preservative Free 25 mg/mL injectable solution (3 sources) Start: 02-04-2024 Methotrexate Sodium, Preservative Free 25 mg/mL injectable solution 4 mL, 0 Refill(s), inject 1 MILLILITER subcutaneously weekly, Refills(s) 0 Start Date: 02/04/24 Status: Ordered pregabalin 75 mg oral capsule (1 source) End: 06-29-2024 take 1 capsule by mouth twice daily pregabalin (LYRICA) 75 mg capsule Take 75 mg by mouth twice daily. 06/29/2024 Discontinued (Discontinued by another Health Care Provider) sucralfate 1000 mg oral tablet (9 sources) Aluminum Complex Start: 08-04-2019 End: 01-21-2023 take 1 tablet by mouth four times daily Sucralfate 1 gram tablet Discontinued 1 GM PO Four times daily August 04, 2019 12:00am January 21, 2023 2:39pm thiamine 50 mg oral tablet (1 source) End: 06-29-2024 take 1 tablet by mouth once daily thiamine (VITAMIN B-1) 50 mg tablet Take 50 mg by mouth once daily. 06/29/2024 Discontinued Tirzepatide (6 sources) Start: 01-20-2023 End: 07-07-2024 Tirzepatide (Mounjaro) 10 mg/0.5 mL pen injector Discontinued 10 MG SUBCUT every week January 19, 2023 11:00pm July 07, 2024 11:12am Start: 01-20-2023 Tirzepatide (M ounjaro) 10 mg/0.5 mL pen injector Active 10 MG SUBCUT every week January 19, 2023 11:00pm Start: 01-20-2023 Tirzepatide (M ounjaro) 10 mg/0.5 mL pen injector Active 10 MG SUBCUT every week January 20, 2023 12:00am Tirzepatide (6 sources) Start: 01-20-2023 End: 01-21-2023 Tirzepatide (Mounjaro) 2.5 m g/0.5 mL pen injector Discontinued MG SUBCUT January 19, 2023 11:00pm January 21, 2023 2:02pm Start: 01-20-2023 End: 01-21-2023 Tirzepatide (Mounjaro) 2.5 m g/0.5 mL pen injector Discontinued MG SUBCUT January 20, 2023 12:00am January 21, 2023 3:02pm Tirzepatide (6 sources) Start: 01-20-2023 End: 01-21-2023 Tirzepatide (Mounjaro) 5 mg/ 0.5 mL pen injector Discontinued MG SUBCUT January 19, 2023 11:00pm January 21, 2023 2:02pm Start: 01-20-2023 End: 01-21-2023 Tirzepatide (Mounjaro) 5 mg/ 0.5 mL pen injector Discontinued MG SUBCUT January 20, 2023 12:00am January 21, 2023 3:02pm Tirzepatide (6 sources) Start: 01-20-2023 End: 01-21-2023 Tirzepatide (Mounjaro) 7.5 m g/0.5 mL pen injector Discontinued MG SUBCUT January 19, 2023 11:00pm January 21, 2023 2:02pm Start: 01-20-2023 End: 01-21-2023 Tirzepatide (Mounjaro) 7.5 m g/0.5 mL pen injector Discontinued MG SUBCUT January 20, 2023 12:00am January 21, 2023 3:02pm vitamin b12 1 mg/ml injectable solution (20 sources) Vitamin B12 Start: 11-17-2012 Cyanocobalamin 1000 MCG/ML Injection Solution Quantity: 1 Refills: 0 Ordered: 17-Nov-2012 DO Start : 17-Nov-2012 Active End: 06-29-2024 cyanocobalamin (Vitamin B-12 ) 1000 MCG/ML injection Inject into the shoulder, thigh, or buttocks if needed. Active vitamin b6 100 mg oral tablet (1 source) End: 06-29-2024 take 1 tablet by mouth once daily pyridoxine (VITAMIN B-6) 100 mg tablet Take 100 mg by mouth once daily. 06/29/2024 Discontinued Problems Active Problems Problem Classification Problem Date Documented Da te Episodic/Chronic Abdominal hernia (2 sources) Umbilical hernia; Translations: [Umbilical hernia without mention of obstruction or gangrene] Episodic Abdominal pain (9 sources) Abdominal pain; Translations: [Unspecified abdominal pain] 08-04-2019 Episodic Acute cerebrovascular disease (8 sources) Cerebrovascular accident; Translations: [Cerebral infarction, unspecified] Onset: 3 01-20-2023 Chronic Administrative/social admission (5 sources) Marital conflict; Translations: [Problems in relationship with spouse or partner] 06-06-2024 Episodic Anxiety disorders (20 sources) Anxiety; Translations: [Anxiety state, unspecified] Onset: 8 Resolved: 3 02-04-2024 Chronic Asthma (20 sources) Asthma; Translations: [Unspecified asthma, uncomplicated] Onset: 8 04-01-2023 Chronic Attention-deficit, conduct, and disruptive behavior disorders (20 sources) Attention deficit hyperactivity disorder, predominantly inattentive type; Translations: [Attention-deficit hyperactivity disorder, predominantly inattentive type] Onset: 3 04-01-2023 Chronic Calculus of urinary tract (2 sources) Personal history of urinary calculi; Translations: [Nephrolithiasis] Episodic Cancer of cervix (5 sources) Personal history of malignant neoplasm of cervix uteri; Translations: [Cervical Cancer] 02-04-2024 Episodic Cancer of uterus (20 sources) Malignant neoplasm of uterus; Translations: [Malignant neoplasm of uterus, part unspecified] Onset: 3 04-01-2023 Chronic Cancer of uterus (3 sources) History of malignant neoplasm of uterine body 02-04-2024 Episodic Diabetes mellitus with complications (20 sources) Type 2 diabetes mellitus; Translations: [Type 2 diabetes mellitus with unspecified complications] Onset: 3 04-01-2023 Chronic Diabetes mellitus without complication (5 sources) Acanthosis nigricans due to type 2 diabetes mellitus; Translations: [Type 2 diabetes mellitus without complication] Onset: 4 08-26-2021 Chronic Disorders of lipid metabolism (20 sources) Hyperlipidemia; Translations: [Hyperlipidemia, unspecified] Onset: 8 04-01-2023 Chronic Epilepsy; convulsions (11 sources) Seizure; Translations: [Unspecified convulsions] 01-19-2023 Episodic Esophageal disorders (20 sources) Gastroesophageal reflux disease; Translations: [Gastro-esophageal reflux disease without esophagitis] Onset: 3 08-04-2019 Chronic Essential hypertension (3 sources) Hypertensive disorder; Translations: [Essential (primary) hypertension] Onset: 4 06-29-2024 Chronic Headache; including migraine (20 sources) Refractory migraine; Translations: [Migraine, unspecified, with intractable migraine, so stated, without mention of status migrainosus] Onset: 3 04-01-2023 Chronic Headache; including migraine (7 sources) Headache; Translations: [Headache] 01-20-2023 Episodic Headache; including migraine (1 source) Headache; including migraine; Translations: [Headache, unspecified] Onset: Malaise and fatigue (2 sources) Chronic fatigue syndrome; Translations: [Chronic fatigue syndrome] Chronic Mood disorders (20 sources) Depressive disorder; Translations: [Depressive disorder, not elsewhere classified] Onset: 8 Resolved: 3 07-05-2023 Chronic Other circulatory disease (3 sources) History of transient ischemic attack 08-26-2021 Episodic Comment on above: 2012 Other connective tissue disease (3 sources) H/O: musculoskeletal disease 08-26-2021 Episodic Other endocrine disorders (1 source) Polycystic ovarian syndrome; Translations: [POLYCYSTIC OVARIAN SYNDROME] Onset: 2 Chronic Other endocrine disorders (20 sources) Polycystic ovary syndrome; Translations: [Polycystic ovarian syndrome] Onset: 3 08-26-2021 Chronic Other endocrine disorders (4 sources) Disorder of endocrine system; Translations: [Endocrine disorder, unspecified] 08-15-2024 Episodic Other female genital disorders (2 sources) History of gynecological disorder; Translations: [Personal history of other diseases of the female genital tract] Onset: 4 06-29-2024 Episodic Other gastrointestinal disorders (20 sources) Irritable bowel syndrome; Translations: [Irritable bowel syndrome without diarrhea] Onset: 3 04-01-2023 Chronic Other gastrointestinal disorders (9 sources) Diarrhea; Translations: [Diarrhea, unspecified] 08-04-2019 Episodic Other nervous system disorders (6 sources) Aphasia; Translations: [Aphasia] 01-20-2023 Chronic Other nervous system disorders (2 sources) Aphasia; Translations: [Aphasia] Onset: 3 01-21-2023 Chronic Other nervous system disorders (2 sources) Impaired cognition; Translations: [Other signs and symptoms involving cognition] Episodic Other non-traumatic joint disorders (2 sources) Pain in left shoulder; Translations: [Pain in joint, shoulder region] 05-04-2024 Episodic Other nutritional; endocrine; and metabolic disorders (4 sources) Metabolic syndrome; Translations: [METABOLIC SYNDROME] Onset: 2 Chronic Other nutritional; endocrine; and metabolic disorders (20 sources) Insulin resistance; Translations: [Insulin resistance] Onset: 3 04-01-2023 Chronic Other nutritional; endocrine; and metabolic disorders (6 sources) Body mass index 30+ - obesity 04-19-2024 Chronic Other nutritional; endocrine; and metabolic disorders (2 sources) Obese class III; Translations: [Obesity, class 3] Onset: 4 06-29-2024 Chronic Other nutritional; endocrine; and metabolic disorders (3 sources) H/O: thyroid disorder 08-26-2021 Episodic Other screening for suspected conditions (not mental disorders or infectious disease) (6 sources) Encounter for screening for malignant neoplasm of cervix; Translations: [Patient encounter status] Onset: 2 Episodic Other upper respiratory disease (20 sources) Chronic rhinitis; Translations: [Chronic rhinitis] Onset: 3 Resolved: 3 07-05-2023 Chronic Other upper respiratory disease (2 sources) Acquired deviated nasal septum; Translations: [Deviated nasal septum] Episodic Other upper respiratory infections (20 sources) Chronic sinusitis; Translations: [Unspecified sinusitis (chronic)] Onset: 3 03-22-2024 Chronic Other upper respiratory infections (2 sources) Acute sinusitis; Translations: [Acute sinusitis, unspecified] Episodic Ovarian cyst (2 sources) Cyst of ovary; Translations: [Other and unspecified ovarian cyst] Episodic Paralysis (8 sources) Right hemiparesis; Translations: [Hemiplegia, unspecified affecting right dominant side] Onset: 3 01-20-2023 Chronic Residual codes; unclassified (2 sources) Memory impairment; Translations: [Memory loss] Episodic Residual codes; unclassified (2 sources) History of arthroscopic procedure on shoulder; Translations: [Other specified postprocedural states] 05-23-2024 Episodic Residual codes; unclassified (2 sources) Tobacco user 06-14-2024 Episodic Systemic lupus erythematosus and connective tissue disorders (5 sources) Lupus erythematosus; Translations: [Systemic lupus erythematosus] 08-26-2021 Chronic Thyroid disorders (20 sources) Hypothyroidism; Translations: [Hypothyroidism, unspecified] Onset: 3 02-04-2024 Chronic Transient cerebral ischemia (6 sources) Transient cerebral ischemia; Translations: [Transient cerebral ischemic attack, unspecified] 01-20-2023 Chronic Unclassified (1 source) Unspecified convulsions; Translations: [Unspecified convulsions] Onset: 3 Unclassified (1 source) NO SHOW Onset: 1 12-11-2010 Past or Other Problems Problem Classification Problem Date Documented Date Episodic/Chronic Anxiety disorders (20 sources) Anxiety disorder due to a general medical condition; Translations: [Anxiety disorder in conditions classified elsewhere] Onset: 06-18-2016 05-22-2023 Episodic Immunizations and screening for infectious disease (1 source) Encounter for screening for human papillomavirus (HPV); Translations: [ENC SCREENING HUMAN PAPILLOMAVIRUS] Onset: 07-02-2022 Episodic Other connective tissue disease (20 sources) Fibromyalgia; Translations: [Myalgia and myositis, unspecified] Onset: 06-18-2016 04-01-2023 Episodic Other non-traumatic joint disorders (20 sources) Ankle instability; Translations: [Other instability, unspecified ankle] Onset: 04-01-2023 08-26-2021 Episodic Other nutritional; endocrine; and metabolic disorders (20 sources) Abnormal weight gain; Translations: [Abnormal weight gain] Onset: 04-01-2023 04-01-2023 Episodic Other upper respiratory disease (20 sources) Deviated nasal septum; Translations: [Deviated nasal septum] Onset: 04-01-2023 04-01-2023 Episodic Other upper respiratory disease (20 sources) Hypertrophy of nasal turbinates; Translations: [Hypertrophy of nasal turbinates] Onset: 04-01-2023 Resolved: 07-05-2023 07-05-2023 Episodic Residual codes; unclassified (20 sources) Patient encounter status; Translations: [Encounter for cosmetic surgery] Onset: 06-18-2016 Resolved: 07-05-2023 07-05-2023 Episodic Sprains and strains (20 sources) Sprain of talofibular ligament of left ankle; Translations: [Sprain of other ligament of left ankle, initial encounter] Onset: 04-01-2023 Resolved: 07-05-2023 07-05-2023 Episodic Substance-related disorders (20 sources) Moderate smoker (20 or less per day) ; Translations: [Nicotine dependence, cigarettes, uncomplicated] Onset: 06-18-2016 Resolved: 07-05-2023 07-05-2023 Chronic Results Test Name Value Interpretation Reference Range Facility Family Medicine Office/Clini c Noteon 08-22-2024 Family Medicine Office/Clinic Note Family Medicine Office/Clinic Note HPI Staff Johanna is 49 year old female presenting with RADHA increased Aripiprazole from 2 mg to 5 mg- She feels like she is having trouble sleeping problems, Vyanse Dr. Garcia he wants to treat her for brain fog, September 06 next f/u with them Follow up for Mental Status: Medication adherence- Yes, takes medication as prescribed Medication refill needed: _ Suicidal thoughts-Not at this time Refused to answer PHQ and THEO questions I have reviewed and verified the staff HPI to be accurate for this encounter. History of Present Illness Patient presents today with her in follow-up for known anxiety with depression. She did have an increase in her Abilify at her last office visit from 2 mg to 5 mg. She reports this has helped with the mood swings. Her only negative is that she seems to be fatigued however, she does not want to change the medication. She reports she discussed her medications with Dr. Garcia and he recommends she switch to vyvanse. She is wondering if she can do that at this appointment. Review of Systems PHQ Score Initial Depression Screen Score: 0 SCORE Constitutional: no fever, no chills, no sweats, no weakness Respiratory: no shortness of breath, no cough, no orthopnea, no wheezing Cardiovascular: no chest pain, no palpitations, no edema Additional ROS info: Except as noted in the above Review of Systems and in the History of Present Illness all other systems have been reviewed and are negative or noncontributory. Physical Exam Vitals & Measurements HT: 63 in HT: 160.0 cm WT: 88.1 kg WT: 194.227 lb BMI: 34.41 General: alert, no acute distress Cardiovascular: regular rate and rhythm, normal peripheral perfusion Respiratory: Lungs CTA, respirations non labored Extremities: no deformity, no trauma Neurological: oriented x 4, LOC appropriate for age speech normal Assessment/Plan 1. Anxiety with depression (F41.8: Other specified anxiety disorders) Continue Ariprazole 5 mg Encouraged to continue with CBT Discontinue Adderall Start Vyvanse 10 mg one tablet po daily f/u in 4 weeks Ordered: lisdexamfetamine, 10 mg = 1 cap(s), Oral, qAM, # 30 cap(s), Refills(s) 0, Pharmacy: [facility] [id number] [facility], 160, cm, 08/22/24 11:55:00 EST, Height/Length Dosing, 88.1, kg, 08/22/24 11:55:00 EST, Weight Dosing 2. Smoker (F17.200: Nicotine dependence, unspecified, uncomplicated) We strongly recommend to quit tobacco use. Cigarette smoking harms nearly every organ of the body, causes many diseases, and reduces the health of smokers in general. Quitting smoking lowers your risk for smoking-related diseases and can add years to your life. We encourage you to visit www.smokefree.gov access to helpful resources including free telephone support. If you decide on prescription treatment to help you quit, we would be happy to provide these. 3. BMI 34.0-34.9,adult (Z68.34: Body mass index [BMI] 34.0-34.9, adult) The standard range for ages 18 and older is >=18.5 and < 25 kg/m2. Your BMI today was above this range, this falls in the overweight to obese category and there are medical benefits to weight loss. We can offer counselling, referral, and/or medical support in addressing this problem. Your BMI and weight management will be followed at subsequent visits. 4. Exogenous obesity (E66.09: Other obesity due to excess calories) The standard range for ages 18 and older is >=18.5 and < 25 kg/m2. Your BMI today was above this range, this falls in the overweight to obese category and there are medical benefits to weight loss. We can offer counselling, referral, and/or medical support in addressing this problem. Your BMI and weight management will be followed at subsequent visits. Total time spent preparing the chart, conducting of the encounter with the patient and family and time spent documenting, reviewing, and ordering tests was 30 minutes. Follow-up With When Contact Information KRISTINE WINCHESTER CNP, FAM Within [address] [place] [id number] [facility] (1) Additional Instructions: Medication efficacy Problem List/Past Medical History Ongoing Anxiety with depression BMI 34.0-34.9,adult BMI 35.0-35.9,adult Chronic sinusitis History of cervical cancer History of uterine cancer Hypothyroid Obesity (BMI 30-39.9) Historical No qualifying data Procedure/Surgical History Arthroscopic repair of meniscus (03/11/2024), Stability of ankle (08/30/2021), Abdomen, Arthroscopy, Fluid-filled abdomen, H/O: hysterectomy, History of breast augmentation, History of tonsillectomy, Recurrent kidney stone. Medications alprazolam 1 mg Tab, 1 mg= 1 tab(s), Oral, Daily amphetamine-dextroampheta mine 30 mg ER Cap, 30 mg= 1 cap(s), Oral, qAM aripiprazole 5 mg Tab, See Instructions baclofen 10 mg Tab, 10 mg= 1 tab(s), Oral, TID Capmist DM 15 mg-400 mg-60 mg oral tablet, See Instructions CeleBREX 200 mg Cap, BID Dymista 137 mcg-50 mcg/inh (more content not included)... Normal [facility] Comment on above: Result Comment: Elec tronically Signed By: KRISTINE WINCHESTER CNP\.br\Date and Time Signed: 08/22/24 14:35 EST Ambulatory Visit Summaryon 1 09-26-2023 Ambulatory Visit Summary Ambulatory Visi t Summary JOHANNA SHANNON :1975 Visit Date:07/26/2024 Ambulatory Visit Instructions Your Diagnosis Anxiety with depression Smoker BMI 34.0-34.9,adult Exogenous obesity Your Care Team Attending Physician - KRISTINE WINCHESTER CNP Primary Care Physician - KRISTINE WINCHESTER CNP This Is Your Medications List aripiprazole (Abilify 5 mg Tab) tirzepatide (Mounjaro 12.5 mg/0.5 mL subcutaneous solution) Contact prescribing physician if questions or concerns Misc Prescription (ONETOUCH SILVINA ULTRA) alprazolam (alprazolam 1 mg Tab) amphetamine-dextroampheta mine (amphetamine-dextroamphet amine 30 mg ER Cap) azelastine-fluticasone nasal (Dymista 137 mcg-50 mcg/inh nasal spray) baclofen (baclofen 10 mg Tab) celecoxib (celecoxib 200 mg Cap) cholecalciferol (Vitamin D 1000 intl units Tab) dextromethorphan/guaifene sin/pseudoephedrine (Capmist DM 15 mg-400 mg-60 mg oral tablet) dextromethorphan/guaifene sin/pseudoephedrine (Capmist DM 15 mg-400 mg-60 mg oral tablet) folic acid (folic acid 1 mg Tab) furosemide (Lasix 20 mg Tab) gabapentin (gabapentin 300 mg Cap) hydroxychloroquine (hydroxychloroquine 200 mg Tab) ibuprofen (ibuprofen 400 mg Tab) levofloxacin (levofloxacin 500 mg Tab) levothyroxine (Synthroid 50 mcg (0.05 mg) Tab) magnesium oxide (magnesium oxide 500 mg oral tablet) methotrexate (Methotrexate Sodium, Preservative Free 25 mg/mL injectable solution) naltrexone olmesartan (olmesartan 20 mg Tab) predniSONE sumatriptan (sumatriptan 20 mg/inh nasal spray) verapamil (verapamil 120 mg ER Tab) Procedures Performed Arthroscopic repair of meniscus (03/11/2024), Stability of ankle (08/30/2021), Abdomen, Arthroscopy, Fluid-filled abdomen, H/O: hysterectomy, History of breast augmentation, History of tonsillectomy, Recurrent kidney stone. Discharge Vitals Temperature (Oral) 36.6 ???C Heart Rate (Peripheral) 76 Respiratory Rate 18 Blood Pressure 116/78 Height 160.0 cm Height 63 in Weight 87.2 kg Weight 192.243 lb BMI 34.06 What to do next Scheduled Follow-Up Appointments Thursday 11:20 AM EST With: KRISTINE WINCHESTER CNP Where: [facility] [address] [place] [phone] You Need to Schedule the Following Appointments Follow Up with KRISTINE WINCHESTER CNP, FAM When: Within 4 weeks Comments: ANxiety & Depression Where: [address] [place] [phone] Business (1) Medications What How Much When Why Instructions Changed aripiprazole (Abilify 5 mg Tab) 1 Tablets By Mouth Every day Anxiety with depression Pickup at [facility] [id number] [facility] Unchanged tirzepatide (Mounjaro 12.5 mg/ 0.5 mL subcutaneous solution) 12.5 Milligram Subcutaneous Every week INJECT 0.5ML UNDER THE SKIN ONE TIME PER WEEK Pickup at [facility] [address] [facility] Unchanged alprazolam (alprazolam 1 mg Tab) 1 Tablets By Mouth Every day Contact prescribing physician if questions or concerns Unchanged amphetamine-dextroampheta mine (amphetamine-dextroamphet amine 30 mg ER Cap) 1 Capsules By Mouth Once a day (in the morning) Contact prescribing physician if questions or concerns Unchanged azelastine-fluticasone nasal (Dymista 137 mcg-50 mcg/ inh nasal spray) 1 Sprays Nasal Inhalation 2 times a day Chronic sinus complaints Congestion of both ears Contact prescribing physician if questions or concerns Unchanged baclofen (baclofen 10 mg Tab) 1 Tablets By Mouth 3 times a day Contact prescribing physician if questions or concerns Unchanged celecoxib (celecoxib 200 mg Cap) 1 Capsules By Mouth Every day Contact prescribing physician if questions or concerns Unchanged cholecalciferol (Vitamin D 1000 intl units Tab) 1 Tablets By Mouth Every day Contact prescribing physician if questions or concerns Unchanged dextromethorphan/ guaifenesin/ pseudoephedrine (Capmist DM 15 mg-400 mg-60 mg oral tablet) 1 Tablets By Mouth 2 times a day Chronic sinus complaints Congestion of both ears Contact prescribing physician if questions or concerns Unchanged dextromethorphan/ guaifenesin/ pseudoephedrine (Capmist DM 15 mg-400 mg-60 mg oral tablet) See instructions take 1 tablet by mouth three times a day if needed Contact prescribing physician if questions or concerns Unchanged folic acid (folic acid 1 mg Tab) 90 EA, 0 Refill(s), take 1 tablet by mouth once daily Contact prescribing physician if questions or concerns Unchanged furosemide (Lasix 20 mg Tab) 1 Tablets By Mouth Every day Contact prescribing physician if questions or concerns Unchanged gabapentin (gabapentin 300 mg Cap) 60 EA, 0 Refill(s), take 1 capsule by mouth twice a day Contact prescribing physician if questions or concerns Unchanged hydroxychloroquine (hydroxychloroquine 200 mg Tab) 1 Tablets By Mouth 2 times a day Contact prescribing physician if questions or concerns Unchanged ibuprofen (ibuprofen 400 m (more content not included)... Normal [facility] Family Medicine Office/Clini c Noteon 07-26-2024 Family Medicine Office/Clinic Note Family Medicine Office/Clinic Note HPI Staff Johanna is a 49 year old female presenting with 4 week f/u RADHA started Aripiprazole 2 mg qd- She thinks she needs an increase, doesn't work as good as she thought it would Follow up for Mental Status: Medication adherence- Yes, takes medication as prescribed Medication refill needed: _ Suicidal thoughts-Not at this time Most recent THEO: 9 Most recent PHQ: 6 History of Present Illness Patient presents today in f/u for anxiety & depression. She was started on aripiprazole 2mg one tablet po daily at her last visit. She reports it has helped some with her anxiety & depression. Her PHQ score is 6 today in the office and the THEO score is 9. She reports that her insurance is requiring a PA on Mounjaro and she needs a refill. In the past she reports she has tried, Januvia (which caused chronic yeast infections), Trulicity & Saxenda caused diarrhea. She reports the Mounjaro is the only medication she was able to tolerate and it was successful in lowering her A1C from 19% to 5-6%. She reports she needs a refill of the medication. Review of Systems PHQ Score Initial Depression Screen Score: 2 SCORE Constitutional: no fever, no chills, no sweats, no weakness Skin: no Jaundice, no rash, no lesions, nopetechiae ENMT: no ear pain, no sore throat, no congestion, no hoarseness Respiratory: no shortness of breath, no cough, no orthopnea, no wheezing Cardiovascular: no chest pain, no palpitations, no edema Gastrointestinal: no nausea, no vomiting, no diarrhea, no GI bleeding Genitourinary: no dysuria, no hematuria, no discharge, no pain Musculoskeletal: no back pain, no trauma Neurologic: no headache, no dizziness, no numbness, no weakness Psychiatric: no sleeping problems, no irritability, no mood swings/depression. Additional ROS info: Except as noted in the above Review of Systems and in the History of Present Illness all other systems have been reviewed and are negative or noncontributory. Physical Exam Vitals & Measurements T: 36.6 ???C(Oral) HR: 76(Peripheral) RR: 18 BP: 116/78 SpO2: 97% HT: 63 in HT: 160.0 cm WT: 87.2 kg WT: 192.243 lb BMI: 34.06 General: alert, no acute distress Cardiovascular: regular rate and rhythm, normal peripheral perfusion Respiratory: Lungs CTA, respirations non labored Extremities: no deformity, no trauma Neurological: oriented x 4, LOC appropriate for age speech normal Assessment/Plan 1. Anxiety with depression (F41.8: Other specified anxiety disorders) Completed and reviewed the PHQ-9 score of 6 and the GAD_7 score of 13 today in the office Discontinue aripiprazole 2 mg 1 tablet p.o. daily Start aripiprazole 5 mg one tablet po daily f/u in 4 weeks Ordered: aripiprazole, 5 mg = 1 tab(s), Oral, Daily, # 30 tab(s), Refills(s) 0, Pharmacy: [facility] [id number] [facility], 160, cm, 07/26/24 14:20:00 EST, Height/Length Dosing, 87.2, kg, 07/26/24 14:20:00 EST, Weight Dosing 2. Smoker (F17.200: Nicotine dependence, unspecified, uncomplicated) We strongly recommend to quit tobacco use. Cigarette smoking harms nearly every organ of the body, causes many diseases, and reduces the health of smokers in general. Quitting smoking lowers your risk for smoking-related diseases and can add years to your life. We encourage you to visit www.smokefree.gov access to helpful resources including free telephone support. If you decide on prescription treatment to help you quit, we would be happy to provide these. 3. BMI 34.0-34.9,adult (Z68.34: Body mass index [BMI] 34.0-34.9, adult) The standard range for ages 18 and older is >=18.5 and < 25 kg/m2. Your BMI today was above this range, this falls in the overweight to obese category and there are medical benefits to weight loss. We can offer counselling, referral, and/or medical support in addressing this problem. Your BMI and weight management will be followed at subsequent visits. 4. Exogenous obesity (E66.09: Other obesity due to excess calories) The standard range for ages 18 and older is >=18.5 and < 25 kg/m2. Your BMI today was above this range, this falls in the overweight to obese category and there are medical benefits to weight loss. We can offer counselling, referral, and/or medical support in addressing this problem. Your BMI and weight management will be followed at subsequent visits. Orders: tirzepatide, 12.5 mg, SubCutaneous, qWeek, INJECT 0.5ML UNDER THE SKIN ONE TIME PER WEEK, # 1 Unspecified/Unknown, Refills(s) 0, Pharmacy: [facility] [id number] [facility], 160, cm, 07/26/24 14:20:00 EST, Height/Length Dosing, 87.2, kg, 07/26/24 14:20:00 EST, Weight Dosing Total time spent preparing the chart, conducting of the encounter with the patient and family and time spent documenting, reviewing, and ordering tests was 40 minutes. Follow-up With When Contact Information KRISTINE WINCHESTER CNP, FAM Within [address] [place] [phone] Business (1) Additional Instructions: ANxiet (more content not included)... Normal [facility] Comment on above: Result Comment: Elec tronically Signed By: KRISTINE WINCHESTER CNP\.br\Date and Time Signed: 07/26/24 15:31 EST Marlena 06-29-2024 CNOV Office Visit (ENDOAV ) ----- JOHANNA SHANNON ([id number]) 1975 F Date Time Provider Department 06/29/24 9:00 AM ASIA VANCE ENDOAV During your visit today, we recorded the following information about you: Pulse Respiration Blood pressure Weight 91/minute 16/minute 108/62 87.7 kg Asia Vance MD 06/29/2024 10:06 PM Signed HISTORY OF PRESENT ILLNESS: Johanna Shannon is presenting for endocrine issues/general endocrine evaluation. Requesting provider: None, self-referred. Patient is concerned about fatigue, PCOS, thyroid issues, abnormal weight gain. Patient reports major weight gain over 18 month ([id number]), about 160-170 lb. Patient has diabetes diagnosed around age 47 years. She has been on Mounjaro intermittently for the past 2 years, continuous for the past 6 months. Current Mounjaro dosage is 12.5 mg weekly. Patient reports maximum weight of 289 lb by 2020. Today's weight is 193 lb. Patient has hypothyroidism diagnosed around age 40-42 years. She has been on levothyroxine 50 mcg daily since diagnosis. Patient had hysterectomy in 2019 for fibroids, she still has one ovary. Hypertension was diagnosed about 2 years ago. Additional concerns are mood swings, fatigue, difficulty sleep. She has worsening depression. She is concerned about easy bruising. Review of Systems Constitutional: Positive for fatigue and night sweats. Eyes: Positive for visual disturbance. Cardiovascular: No palpitations Gastrointestinal: Positive for nausea (Still has nausea occasionally, not worsened by Mounjaro. She takes Reglan), diarrhea and constipation. Negative for vomiting. Neurological: Positive for dizziness (when standing up). Endo/Heme/Allergies: Negative for polydipsia. PAST MEDICAL HISTORY Diagnosis Date Anxiety Cervical cancer (HCC) 2004 Depression Diabetes mellitus (HCC) 2021 Essential hypertension 2021 Fibroid 2019 s/p hysterectomy Fibromyalgia PAST SURGICAL HISTORY Procedure Laterality Date TOTAL ABDOM HYSTERECTOMY 2018 She still has right ovary Current Medications 06/29/2024 DIABETES THERAPIES Medication Dosage Pharm Subclass tirzepatide (MOUNJARO) 12.5 mg/0.5 mL pen injector Inject 12.5 mg subcutaneously one time a week. Antihyperglycemic - Dual GIP and GLP-1 Receptor Agonists CARDIOVASCULAR Medication Dosage Pharm Subclass olmesartan (BENICAR) 20 mg tablet Take 1 tablet by mouth once daily. Angiotensin II Receptor Blockers (ARBs) verapamil SR (CALAN SR) 120 mg CR tablet Take 1 tablet by mouth daily at bedtime. Calcium Channel Blockers - Phenylakylamines OTHER Medication Dosage Pharm Subclass 5-Hydroxytryptophan (5-HTP) 100 mg cap Take by mouth. 2 in the morning 1 at night Alternative Therapy - Unclassified ALPRAZolam (XANAX) 1 mg tablet Take 1 tablet by mouth at bedtime as needed. Antianxiety Agent - Benzodiazepines Amphetamine-Dextroampheta mine (ADDERALL) 30 mg tablet Take 30 mg by mouth as needed. NURSE TECH Stimulant - Amphetamine Combinations ARIPiprazole (ABILIFY) 2 mg tablet Take 1 tablet by mouth once daily. Bipolar Therapy Agents - Atypical Antipsychotics [id number] aHCO3 137 mcg-50 mcg- 0.9 % ksps Use in the nose. Nasal Antihistamine and Anti-inflammatory Steroid Combinations baclofen 10 mg tablet Take 2 tablets by mouth as needed. Skeletal Muscle Relaxant - Central Muscle Relaxants celecoxib (CELEBREX) 200 mg capsule Take 200 mg by mouth two times a day. NSAID Analgesic, Cyclooxygenase-2 (DUNNE-2) Selective Inhibitors estradiol 0.25 mg estriol 1 mg progesterone 50 mg per 1 g cream (CPD) folic acid 1 mg tablet Take 1 mg by mouth once daily. Vitamins - Folic Acid and Derivatives gabapentin (NEURONTIN) 400 mg capsule Take 400 mg by mouth two times a day. Anticonvulsant - ABDIEL Analogs hydrOXYzine pamoate (VISTARIL) 25 mg capsule Take 25 mg by mouth as needed. Antianxiety Agent - Antihistamine Type levothyroxine (SYNTHROID) 50 mcg tablet Take 1 tablet by mouth once daily. Thyroid Hormones - Synthetic T4 (Thyroxine) magnesium hydroxide 1,200 mg chew Take by mouth once daily. Laxative - Saline and Osmotic methotrexate (JYLAMVO) 2 mg/mL solution Take by mouth one time a week. DMARD - Antimetabolites metoclopramide HCl (REGLAN) 10 mg tablet Take 10 mg by mouth two times a day. Gastrointestinal Prokinetic Agents - D2 Antagonist/5-HT4 Agonists naltrexone capsule 0.5 mg (CPD) Take 1 capsule by mouth once daily. omeprazole (PRILOSEC) 20 mg capsule Take 20 mg by mouth once daily. Gastric Acid Secretion Dust Operator - Proton Pump Inhibitors (PPIs) [id number] Nesin (CAPMIST DM) 60-15-400 mg tab Take by mouth as needed. Non-Opioid Antitussive-Decongestant- Expectorant Combinations SUMAtriptan (IMITREX) 20 mg/actuation nasal spray Use 20 mg in the nose as needed. May repeat dose after 2 hours if needed. Maximum daily dose is 40 mg per d (more content not included)... Normal [facility] HEMOGLOBIN A1C (POC)on 06-29 HbA1c (Bld) [Mass fraction] 5.1 % 4.3 - 5.6 % [facility] Comment on above: Location:[facility], [address] [place] [address], [place], [place], [address] Point of care (POC) Hemoglobin A1c (HGBA1C) testing is intended to assess glucose control and provide a management tool for patients known to have diabetes and their healthcare providers. Target HGBA1C levels may depend on specific clinical circumstances. POC HGBA1C is not intended for use as a diagnostic or screening test; laboratory-based testing should be used for diagnostic purposes. The following information is supplemental and may not be applicable to specific diabetes management situations: The POC device chargemaster specialist provides a normal range of 4.2% to 6.5% for the HGBA1C POC test. However, the [place] [employer] guidelines indicate that patients with HGBA1C in the range of 5.7% to 6.4% are at increased risk for development of diabetes and that intervention by lifestyle modification may be beneficial. A HGBA1C level greater than or equal to 6.5% is considered diagnostic of diabetes, pending confirmatory testing. Use of HGBA1C testing to evaluate glucose control may not be appropriate for patients with hemoglobin variants or other conditions (e.g. anemia) that alter red blood cell lifespan. [facility] Cortisolon 06-27-2024 Cortisol [Mass/Vol] 6.7 microgram/dL Invalid Interpretation Code 6.2-19.4 [facility] Comment on above: Result Comment: Catherine rodriguez Note: The reference interval and flagging for this test is for an AM collection. If this is a PM collection please use: Cortisol PM: 2.3-11.9 Performed at: [facility] [address] [place] [id number] PhD Laura Lion Performed By: #### [id number] #### [facility] [address] [place] [address] Estrogens Totalon 06-27-2024 Estrogen [Mass/Vol] 62 pg/mL Invalid Interpretation Code [facility] Comment on above: Result Comment: Prep ubertal < 40 Female Cycle: 1-10 Days 16 - 328 11-20 Days 34 - 501 21-30 Days 48 - 350 Post-Menopausal 40 - 244 Performed at: [address] [id number] MD Jorge Gaspar Performed By: #### 1 [id number] #### [facility] [address] [place] [address] FSH and LHon 06-27-2024 Follitropin Qn 70.1 m[IU]/mL Invalid Interpretation Code [facility] Comment on above: Result Comment: Adul t Female Range Follicular phase 3.5 - 12.5 Ovulation phase 4.7 - 21.5 Luteal phase 1.7 - 7.7 Postmenopausal 25.8 - 134.8 Performed at: [facility] [id number] PhD Laura Lion Performed By: #### 1 [id number] #### [facility] [address] [place] [address] Lutropin Qn 57.9 m[IU]/mL Invalid Interpretation Code [facility] Comment on above: Result Comment: Adul t Female Range Follicular phase 2.4 - 12.6 Ovulation phase 14.0 - 95.6 Luteal phase 1.0 - 11.4 Postmenopausal 7.7 - 58.5 Performed By: #### 1 [id number] #### [facility] [address] [place] [address] Testost Totalon 06-27-2024 Testosterone [Mass/Vol] 10 ng/dL Invalid Interpretation Code 4-50 [facility] Comment on above: Result Comment: Perf ormed at: [facility] [address] [id number] PhD Laura Lion Performed By: #### 2 [id number] #### [facility] [address] [place] [address] Ambulatory Visit Summaryon 1 Ambulatory Visit Summary Ambulatory Visi t Summary SHIVAJOHANNA :1975 Visit Date:06/21/2024 Ambulatory Visit Instructions Your Diagnosis Anxiety with depression BMI 34.0-34.9,adult Obesity (BMI 30-39.9) Tobacco use Your Care Team Attending Physician - KRISTINE WINCHESTER CNP Primary Care Physician - KRISTINE WINCHESTER CNP This Is Your Medications List [facility] Prescription (ONETOUCH SILVINA ULTRA) alprazolam (alprazolam 1 mg Tab) amphetamine-dextroampheta mine (amphetamine-dextroamphet amine 30 mg ER Cap) aripiprazole (Abilify 2 mg Tab) azelastine-fluticasone nasal (Dymista 137 mcg-50 mcg/inh nasal spray) baclofen (baclofen 10 mg Tab) celecoxib (celecoxib 200 mg Cap) cholecalciferol (Vitamin D 1000 intl units Tab) dextromethorphan/guaifene sin/pseudoephedrine (Capmist DM 15 mg-400 mg-60 mg oral tablet) dextromethorphan/guaifene sin/pseudoephedrine (Capmist DM 15 mg-400 mg-60 mg oral tablet) doxycycline (doxycycline hyclate 100 mg Cap) folic acid (folic acid 1 mg Tab) furosemide (Lasix 20 mg Tab) gabapentin (gabapentin 300 mg Cap) hydroxychloroquine (hydroxychloroquine 200 mg Tab) ibuprofen (ibuprofen 400 mg Tab) levofloxacin (levofloxacin 500 mg Tab) levothyroxine (Synthroid 50 mcg (0.05 mg) Tab) magnesium oxide (magnesium oxide 500 mg oral tablet) methotrexate (Methotrexate Sodium, Preservative Free 25 mg/mL injectable solution) naltrexone olmesartan (olmesartan 20 mg Tab) predniSONE sumatriptan (sumatriptan 20 mg/inh nasal spray) tirzepatide (Mounjaro 12.5 mg/0.5 mL subcutaneous solution) verapamil (verapamil 120 mg ER Tab) Procedures Performed Arthroscopic repair of meniscus (03/11/2024), Stability of ankle (08/30/2021), Abdomen, Arthroscopy, Fluid-filled abdomen, H/O: hysterectomy, History of breast augmentation, History of tonsillectomy, Recurrent kidney stone. Discharge Vitals Temperature (Tympanic) 36.9 ???C Heart Rate (Peripheral) 84 Respiratory Rate 18 Blood Pressure 138/82 Height 160 cm Height 63 in Weight 87.6 kg Weight 192.72 lb BMI 34.22 What to do next Scheduled Follow-Up Appointments Thursday 2:40 PM EST With: KRISTINE WINCHESTER CNP Where: [facility] [place] [id number]- Medications What How Much When Why Instructions New aripiprazole (Abilify 2 mg Tab) 2 Milligram By Mouth Every day Anxiety with depression Pickup at [facility] [id number] [facility] Unchanged alprazolam (alprazolam 1 mg Tab) 1 Tablets By Mouth Every day Unchanged amphetamine-dextroampheta mine (amphetamine-dextroamphet amine 30 mg ER Cap) 1 Capsules By Mouth Once a day (in the morning) Unchanged azelastine-fluticasone nasal (Dymista 137 mcg-50 mcg/ inh nasal spray) 1 Sprays Nasal Inhalation 2 times a day Chronic sinus complaints Congestion of both ears Unchanged baclofen (baclofen 10 mg Tab) 1 Tablets By Mouth 3 times a day Unchanged celecoxib (celecoxib 200 mg Cap) 1 Capsules By Mouth Every day Unchanged cholecalciferol (Vitamin D 1000 intl units Tab) 1 Tablets By Mouth Every day Unchanged dextromethorphan/ guaifenesin/ pseudoephedrine (Capmist DM 15 mg-400 mg-60 mg oral tablet) 1 Tablets By Mouth 2 times a day Chronic sinus complaints Congestion of both ears Unchanged dextromethorphan/ guaifenesin/ pseudoephedrine (Capmist DM 15 mg-400 mg-60 mg oral tablet) See instructions take 1 tablet by mouth three times a day if needed Unchanged doxycycline (doxycycline hyclate 100 mg Cap) 1 Capsules By Mouth 2 times a day Chronic sinus infection Chronic sinus complaints Congestion of both ears Duration: 4 Weeks Unchanged folic acid (folic acid 1 mg Tab) 90 EA, 0 Refill(s), take 1 tablet by mouth once daily Unchanged furosemide (Lasix 20 mg Tab) 1 Tablets By Mouth Every day Unchanged gabapentin (gabapentin 300 mg Cap) 60 EA, 0 Refill(s), take 1 capsule by mouth twice a day Unchanged hydroxychloroquine (hydroxychloroquine 200 mg Tab) 1 Tablets By Mouth 2 times a day Unchanged ibuprofen (ibuprofen 400 mg Tab) 1 Tablets By Mouth Every 6 hours as needed for as needed for pain Unchanged levofloxacin (levofloxacin 500 mg Tab) 5 EA, 0 Refill(s), take 1 tablet by mouth once daily for 5 days Unchanged levothyroxine (Synthroid 50 mcg (0.05 mg) Tab) 1 Tablets By Mouth Every day Unchanged magnesium oxide (magnesium oxide 500 mg oral tablet) 1 Tablets By Mouth Every day Unchanged methotrexate (Methotrexate Sodium, Preservative Free 25 mg/ mL injectable solution) 4 mL, 0 Refill(s), inject 1 MILLILITER subcutaneously weekly Unchanged Misc Prescription (ONETOUCH SILVINA ULTRA) 0 Unchanged naltrexone By Mouth Every day 4 tabs per day Unchanged olmesartan (olmesartan 20 mg Tab) See instructions TAKE 1 TABLET BY MOUTH EVERY DAY Unchanged predniSONE 10 Milligram By Mouth 3 times a day Unchanged sumatriptan (sumatriptan 20 mg/ inh nasal spray) See instructions SPRAY 1 SPRAY ONCE NEEDED FOR MIGRAI (more content not included)... Normal [facility] CHEMISTRYOrdered By: SYSTEM SYSTEM on 06-21-2024 Prolactin 2.91 ng/mL Low 3.34 - 26.72 ng/mL Remisol Chem Family Medicine Office/Clini c Noteon 06-21-2024 Family Medicine Office/Clinic Note Family Medicine Office/Clinic Note Chief Complaint 2m to Anxiety & Depression HPI Staff Pt presents today for 2m follow up to anxiety & depression Follow up for Mental Status: Medication adherence- No, isnt taking medication as prescribed Xanax 1mg PRN Medication refill needed: no Suicidal thoughts-Not at this time Most recent THEO:13 Most recent PHQ:6 History of Present Illness Patient presents today in f/u for anxiety. She reports she has not been taking the Xanax because we had her sign a med agreement and do a drug screen. She reports she is concerned because she has been on the medication for over 30 years. She reports she is no longer able to get the medications that she uses for depression from [facility] due to the cost of the medication. She is interested in maybe starting a mood stabilizer. She reports she is continuing to see a counselor. Her PHQ-9 score today in the office is 6 and her THEO???7 score is 13. She reports that sometimes she is irrational in her thinking and she will last lashes out at her or her family. She is requesting to have her hormones checked because she has a friend that is a nurse who thinks that may be she should go to an medical coding manager if her hormones are off. Review of Systems PHQ Score Initial Depression Screen Score: 2 SCORE Constitutional: no fever, no chills, no sweats, no weakness Skin: no Jaundice, no rash, no lesions, nopetechiae ENMT: no ear pain, no sore throat, no congestion, no hoarseness Respiratory: no shortness of breath, no cough, no orthopnea, no wheezing Cardiovascular: no chest pain, no palpitations, no edema Gastrointestinal: no nausea, no vomiting, no diarrhea, no GI bleeding Genitourinary: no dysuria, no hematuria, no discharge, no pain Musculoskeletal: no back pain, no trauma Neurologic: no headache, no dizziness, no numbness, no weakness Psychiatric: no sleeping problems, no irritability, no mood swings/depression. Heme/Lymph: no bleeding tendency, no bruising tendency, no petechiae, no swollen nodes Allergy/Immunologic: no seasonal allergies, no food allergies, no recurrent infections, no impaired immunity Additional ROS info: Except as noted in the above Review of Systems and in the History of Present Illness all other systems have been reviewed and are negative or noncontributory. Physical Exam Vitals & Measurements T: 36.9 ???C(Tympanic) HR: 84(Peripheral) RR: 18 BP: 138/82 SpO2: 97% HT: 63 in HT: 160 cm WT: 87.6 kg WT: 192.72 lb BMI: 34.22 General: alert, no acute distress Skin: warm, dry Head: no trauma, normocephalic Neck: Trachea midline, no adenopathy, no tenderness Eye: normal conjunctiva, sclera clear ENMT: TM's clear, oral mucosa moist, no pharyngeal erythema or exudate Cardiovascular: regular rate and rhythm, normal peripheral perfusion Respiratory: Lungs CTA, respirations non labored Chest wall: no deformity. Gastrointestinal: soft, non distended, no tenderness, no guarding. Back: No tenderness, Normal ROM, Normal alignment. Extremities: no deformity, no trauma Neurological: oriented x 4, LOC appropriate for age, CN II-XII intact, motor strength equal & normal bilaterally, sensation equal & normal bilaterally, speech normal Psychiatric: cooperative, affect appropriate for age, normal judgement, normal psychiatric thoughts. Assessment/Plan 1. Anxiety with depression (F41.8: Other specified anxiety disorders) Completed and reviewed the PHQ-9 score of 6 and the GAD_7 score of 13 today in the office Discussed medication from [facility] aripiprazole 2 mg 1 tablet p.o. daily Encouraged to follow-up in 4 weeks Ordered: aripiprazole, 2 mg, Oral, Daily, # 30 tab(s), Refills(s) 0, Pharmacy: [facility] [id number] [facility], 160, cm, 06/21/24 14:47:00 EDT, Height/Length Dosing, 87.6, kg, 06/21/24 14:47:00 EDT, Weight Dosing Cortisol Estrogens Total FSH and LH Lab Specimen Collect 19219 Prolactin Level Testosterone Level Total 2. BMI 34.0-34.9,adult (Z68.34: Body mass index [BMI] 34.0-34.9, adult) We strongly recommend to quit tobacco use. Cigarette smoking harms nearly every organ of the body, causes many diseases, and reduces the health of smokers in general. Quitting smoking lowers your risk for smoking-related diseases and can add years to your life. We encourage you to visit www.smokefree.gov access to helpful resources including free telephone support. If you decide on prescription treatment to help you quit, we would be happy to provide these. Ordered: Estrogens Total 3. Obesity (BMI 30-39.9) (E66.9: Obesity, unspecified) We strongly recommend to quit tobacco use. Cigarette smoking harms nearly every organ of the body, causes many diseases, and reduces the health of smokers in general. Quitting smoking lowers your risk for smoking-related diseases and can add years to your life. We encourage you to visit www.smokefree.gov access to helpful resources including free telephone support. If you decide on presc (more content not included)... Normal [facility] Comment on above: Result Comment: Elec tronically Signed By: KRISTINE WINCHESTER CNP\.br\Date and Time Signed: 06/21/24 15:54 EDT Prolactinon 06-21-2024 Prolactin 2.91 ng/mL Low 3.34-26.72 [facility] Comment on above: Performed By: #### 2 [id number] #### [facility] [address] [place] [address] Ambulatory Visit Summaryon 1 Ambulatory Visit Summary Ambulatory Visi t Summary JOHANNA SHANNON :1975 Visit Date:06/15/2024 Ambulatory Visit Instructions Your Diagnosis Tobacco use BMI 34.0-34.9,adult Obesity (BMI 30-39.9) Chronic sinus complaints Congestion of both ears Your Care Team Attending Physician - KRISTINE WINCHESTER CNP Primary Care Physician - KRISTINE WINCHESTER CNP This Is Your Medications List azelastine-fluticasone nasal (Dymista 137 mcg-50 mcg/inh nasal spray) dextromethorphan/guaifene sin/pseudoephedrine (Capmist DM 15 mg-400 mg-60 mg oral tablet) Contact prescribing physician if questions or concerns Misc Prescription (ONETOUCH SILVINA ULTRA) alprazolam (alprazolam 1 mg Tab) amphetamine-dextroampheta mine (amphetamine-dextroamphet amine 30 mg ER Cap) baclofen (baclofen 10 mg Tab) celecoxib (celecoxib 200 mg Cap) cholecalciferol (Vitamin D 1000 intl units Tab) dextromethorphan/guaifene sin/pseudoephedrine (Capmist DM 15 mg-400 mg-60 mg oral tablet) folic acid (folic acid 1 mg Tab) furosemide (Lasix 20 mg Tab) gabapentin (gabapentin 300 mg Cap) hydroxychloroquine (hydroxychloroquine 200 mg Tab) ibuprofen (ibuprofen 400 mg Tab) levofloxacin (levofloxacin 500 mg Tab) levothyroxine (Synthroid 50 mcg (0.05 mg) Tab) magnesium oxide (magnesium oxide 500 mg oral tablet) methotrexate (Methotrexate Sodium, Preservative Free 25 mg/mL injectable solution) naltrexone olmesartan (olmesartan 20 mg Tab) predniSONE sumatriptan (sumatriptan 20 mg/inh nasal spray) tirzepatide (Mounjaro 12.5 mg/0.5 mL subcutaneous solution) verapamil (verapamil 120 mg ER Tab) Procedures Performed Arthroscopic repair of meniscus (03/11/2024), Stability of ankle (08/30/2021), Abdomen, Arthroscopy, Fluid-filled abdomen, H/O: hysterectomy, History of breast augmentation, History of tonsillectomy, Recurrent kidney stone. Discharge Vitals Heart Rate (Peripheral) 90 Respiratory Rate 16 Blood Pressure 122/74 Height 160 cm Height 63 in Weight 88.3 kg Weight 194.26 lb BMI 34.49 What to do next Scheduled Follow-Up Appointments Thursday 2:40 PM EDT With: KRISTINE WINCHESTER CNP Where: [place] [id number]- Medications What How Much When Why Instructions Unchanged azelastine-fluticasone nasal (Dymista 137 mcg-50 mcg/ inh nasal spray) 1 Sprays Nasal Inhalation 2 times a day Chronic sinus complaints Congestion of both ears Pickup at [facility]/pharmacy #[id number] Unchanged dextromethorphan/ guaifenesin/ pseudoephedrine (Capmist DM 15 mg-400 mg-60 mg oral tablet) 1 Tablets By Mouth 2 times a day Chronic sinus complaints Congestion of both ears Pickup at [facility] [id number] [facility] Unchanged alprazolam (alprazolam 1 mg Tab) 1 Tablets By Mouth Every day Contact prescribing physician if questions or concerns Unchanged amphetamine-dextroampheta mine (amphetamine-dextroamphet amine 30 mg ER Cap) 1 Capsules By Mouth Once a day (in the morning) Contact prescribing physician if questions or concerns Unchanged baclofen (baclofen 10 mg Tab) 1 Tablets By Mouth 3 times a day Contact prescribing physician if questions or concerns Unchanged celecoxib (celecoxib 200 mg Cap) 1 Capsules By Mouth Every day Contact prescribing physician if questions or concerns Unchanged cholecalciferol (Vitamin D 1000 intl units Tab) 1 Tablets By Mouth Every day Contact prescribing physician if questions or concerns Unchanged dextromethorphan/ guaifenesin/ pseudoephedrine (Capmist DM 15 mg-400 mg-60 mg oral tablet) See instructions take 1 tablet by mouth three times a day if needed Contact prescribing physician if questions or concerns Unchanged folic acid (folic acid 1 mg Tab) 90 EA, 0 Refill(s), take 1 tablet by mouth once daily Contact prescribing physician if questions or concerns Unchanged furosemide (Lasix 20 mg Tab) 1 Tablets By Mouth Every day Contact prescribing physician if questions or concerns Unchanged gabapentin (gabapentin 300 mg Cap) 60 EA, 0 Refill(s), take 1 capsule by mouth twice a day Contact prescribing physician if questions or concerns Unchanged hydroxychloroquine (hydroxychloroquine 200 mg Tab) 1 Tablets By Mouth 2 times a day Contact prescribing physician if questions or concerns Unchanged ibuprofen (ibuprofen 400 mg Tab) 1 Tablets By Mouth Every 6 hours as needed for as needed for pain Contact prescribing physician if questions or concerns Unchanged levofloxacin (levofloxacin 500 mg Tab) 5 EA, 0 Refill(s), take 1 tablet by mouth once daily for 5 days Contact prescribing physician if questions or concerns Unchanged levothyroxine (Synthroid 50 mcg (0.05 mg) Tab) 1 Tablets By Mouth Every day Contact prescribing physician if questions or concerns Unchanged magnesium oxide (magnesium oxide 500 mg oral tablet) 1 Tablets By Mouth Every day Contact prescribing physician if questions or concerns Unchanged methotrexate (Methotrexate Sodium, Pres (more content not included)... Normal [facility] Family Medicine Office/Clini c Noteon 06-15-2024 Family Medicine Office/Clinic Note Family Medicine Office/Clinic Note Chief Complaint Sinus Congestion HPI Staff Pt presents today for acute sick visit. Headache- yes Earache- no Sinus Congestion- yes & pressure Rhinorrhea- no blockage in nose Sore Throat- yes only in morning Cough- no wheezing- no Dyspnea on exertion- no Orthopnea- Trouble laying flat/breathing through nose: no Lung Hx (asthma, recurring bronchitis/chest colds, COPD)- no Fevers/chills- no GI symptoms- no Does need refill of cap mist & fluticasone. I have reviewed and verified the staff HPI to be accurate for this encounter. History of Present Illness Patient presents today for evaluation of acute illness. She reports her symptoms started after she stopped taking the CapMist 3 weeks ago. She states she has been using a tincture of garlic and it has not helped. She thinks it may be time for an antibiotic. She denies fever or nausea. Review of Systems PHQ Score Initial Depression Screen Score: 0 SCORE Constitutional: no fever, no chills, no sweats, no weakness Skin: no Jaundice, no rash, no lesions, nopetechiae ENMT: mild ear pain, mild sore throat, moderate congestion, no hoarseness Respiratory: no shortness of breath, no cough, no orthopnea, no wheezing Cardiovascular: no chest pain, no palpitations, no edema Neurologic: no headache, no dizziness, no numbness, no weakness Psychiatric: no sleeping problems, no irritability, no mood swings/depression. Additional ROS info: Except as noted in the above Review of Systems and in the History of Present Illness all other systems have been reviewed and are negative or noncontributory. Physical Exam Vitals & Measurements HR: 90(Peripheral) RR: 16 BP: 122/74 SpO2: 97% HT: 63 in HT: 160 cm WT: 88.3 kg WT: 194.26 lb BMI: 34.49 General: alert, no acute distress ENMT: TM's clear, oral mucosa moist, yes pharyngeal erythema or exudate; bilateral frontal and maxillary tenderness, nasal passages erythematious and boggy Cardiovascular: regular rate and rhythm, normal peripheral perfusion Respiratory: Lungs CTA, respirations non labored Extremities: no deformity, no trauma Neurological: oriented x 4, LOC appropriate for age speech normal Assessment/Plan 1. Chronic sinus infection (J32.9: Chronic sinusitis, unspecified) Encouraged to take acetaminophen or ibuprofen for fever or discomfort. Ordered: doxycycline, 100 mg = 1 cap(s), Oral, BID, X 4 week(s), # 56 cap(s), Refills(s) 0, Pharmacy: [facility] [id number] [facility], 160, cm, 06/15/24 11:44:00 EDT, Height/Length Dosing, 88.3, kg, 06/15/24 11:44:00 EDT, Weight Dosing 2. Tobacco use (Z72.0: Tobacco use) We strongly recommend to quit tobacco use. Cigarette smoking harms nearly every organ of the body, causes many diseases, and reduces the health of smokers in general. Quitting smoking lowers your risk for smoking-related diseases and can add years to your life. We encourage you to visit www.smokefree.gov access to helpful resources including free telephone support. If you decide on prescription treatment to help you quit, we would be happy to provide these. 3. BMI 34.0-34.9,adult (Z68.34: Body mass index [BMI] 34.0-34.9, adult) An explanation and discussion of advanced care planning for of end of life completed. Discussion included: assisting patient to designate a person to make decisions for the patient if the patient is unable to speak, types of medical care preferred and desired comfort level that is preferred. Verbal and written instructions were given to patient today. Handouts included the Patient plans to discuss with. Patient was offered assistance in completing documents. Upon completion of the document the patient will 4. Obesity (BMI 30-39.9) (E66.9: Obesity, unspecified) The standard range for ages 18 and older is >=18.5 and < 25 kg/m2. Your BMI today was above this range, this falls in the overweight to obese category and there are medical benefits to weight loss. We can offer counselling, referral, and/or medical support in addressing this problem. Your BMI and weight management will be followed at subsequent visits. Chronic sinus complaints (R09.89: Other specified symptoms and signs involving the circulatory and respiratory systems) Ordered: azelastine-fluticasone nasal, 1 spray(s), Nasal, BID, 23 gm, Refill(s) 1, [facility]/pharmacy #[id number], 160, cm, 06/15/24 11:44:00 EDT, Height/Length Dosing, 88.3, kg, 06/15/24 11:44:00 EDT, Weight Dosing dextromethorphan/guaifene sin/pseudoephedrine, 1 tab(s), Oral, BID, 60 tab(s), Refill(s) 3, [facility], 160, cm, 06/15/24 11:44:00 EDT, Height/Length Dosing, 88.3, kg, 06/15/24 11:44:00 EDT, Weight Dosing doxycycline, 100 mg = 1 cap(s), Oral, BID, X 4 week(s), # 56 cap(s), Refills(s) 0, Pharmacy: [facility] [id number] [facility], 160, cm, 06/15/24 11:44:00 EDT, Height/Length Dosing, 88.3, kg, 06/15/24 11:44:00 EDT, Weight Dosing Congestion of both ears (H93.8X3: Other specified disorders of ear, bilateral) Ordered: azelastine-fluti (more content not included)... Normal [facility] Comment on above: Result Comment: Elec tronically Signed By: ANNABELLA MOONEY, KRISTINE Hassan\.br\Date and Time Signed: 06/15/24 12:23 EDT XR Shoulder - left 2 Viewson 05-25-2024 Imaging Result: Two views, AP and Lateral, in the office taken today saved to the permanent record shows post surgical change with acromioplasty/partial distal clavulectomy with appropriate coplaning. No acute fracture, dislocation, tumor or infection seen. [facility] Radiology Study observation (narrative) [facility] Basic metabolic 1998 panelon 05-05-2024 Calcium [Mass/Vol] 9.2 mg/dL 8.7 - 10. 2 mg/dL [facility] Chloride [Moles/Vol] 106 mmol/L 96 - 10 6 mmol/L [facility] CO2 [Moles/Vol] 20 mmol/L 20 - 29 mmol/L [facility] Creatinine [Mass/Vol] 0.84 mg/dL 0.57 - 1.00 mg/dL [facility] GFR/1.73 sq M.predicted among non-blacks MDRD (S/P/Bld) [Vol rate/Area] 87 mL/min/{1.73_m2} 59 - PINF mL/min/1.7 3 [facility] Glucose [Mass/Vol] 91 mg/dL 70 - 99 mg/dL [facility] Interpretation and review of laboratory results Abnormal [facility] Potassium [Moles/Vol] 4.5 mmol/L 3.5 - 5.2 mmol/L [facility] Sodium [Moles/Vol] 139 mmol/L 134 - 144 mmol/L [facility] Urea nitrogen [Mass/Vol] 22 mg/dL 6 - 24 mg/dL [facility] Urea nitrogen/Creatinine [Mass ratio] 26 mg/mg High 9 - 23 [facility] CBC panel Auto (Bld)on 05-05 Erythrocyte distribution width (RBC) [Ratio] 12.9 % 11.7 - 15.4 % [facility] Hematocrit (Bld) [Volume fraction] 43.3 % 34.0 - 46.6 % [facility] Hemoglobin (Bld) [Mass/Vol] 14.5 g/dL 11.1 - 15.9 g/dL [facility] MCH (RBC) [Entitic mass] 32.1 pg 26. 6 - 33.0 pg [facility] MCHC (RBC) [Mass/Vol] 33.5 g/dL 31.5 - 35.7 g/dL [facility] MCV (RBC) [Entitic vol] 96 fL 79 - 97 fL [facility] Platelets (Bld) [#/Vol] 247 10*3/uL [facility] RBC (Bld) [#/Vol] 4.52 10*6/uL [facility] WBC (Bld) [#/Vol] 8.5 10*3/uL [facility] No Panel Informationon 05-05 Performed at: [address] [place] [address] [id number] Descriptive Catalog Librarian: Ayad Sanchez PhD, Phone: [phone] [facility] MR SHOULDER LEFT WO IV CONTR Elisabeth 04-27-2024 MR SHOULDER LEFT WO IV CONTRAST EXAMINATION: MR SHOULDER LEFT WO IV CONTRAST HISTORY: Left shoulder impingement syndrome, partial rotator cuff tear TECHNIQUE: Routine non-contrast MRI of the shoulder, left side COMPARISON: Radiographs 02/17/2024. RESULT: Some limitations from motion. Rotator Cuff Tendons: Mild tendinosis involving supraspinatus, infraspinatus, and subscapularis, without tear. Teres minor appears intact. Long Head Biceps Tendon: Appears intact with appropriate location. Muscle: Muscle bulk and signal intensity are within normal limits. Labrum: Areas of fraying, especially anteriorly and inferiorly. No distinct displaced tear. Bones and Marrow: No evidence of fracture or bone marrow replacing process. Glenohumeral Joint: No measurable full-thickness chondral defect within limits of motion. No joint effusion. Thickening of the joint capsule with increased signal, associated with adhesive capsulitis. Acromioclavicular Joint: Mild degenerative changes. Other: No other significant abnormality. IMPRESSION: Rotator cuff tendinosis, without tear. Findings associated with adhesive capsulitis. ELECTRONICALLY SIGNED BY: Tyron Valdovinos MD Normal Not Available Comment on above: Order Comment: Diabe tic Type 2 Family Medicine Office/Clini c Noteon 04-20-2024 Family Medicine Office/Clinic Note Family Medicine Office/Clinic Note Chief Complaint 4wk f/u to meds HPI Staff Johanna is a 48 year old presenting with f/u with sinusitis Ran out of Cap mist 2wks ago, can tell a difference. Has started coughing & snoring again since she has been off of it. Does have a list of refills needed. I have reviewed and verified the staff HPI to be accurate for this encounter. History of Present Illness Patient presents today in f/u for insomnia and chronic sinusitis. She reports the trazodone at 75 mg is more effective. She reports she does not take it every night just when she feels like she cannot sleep. She reports she ran out of the CapMist and did not go to the pharmacy to pick up man a refill. However she reports the cat missed with the Dymista nasal spray on the use of the Lutz pot did help with her chronic sinusitis. She is requesting a refill of the Mist at her visit today. Additionally she reports she is in marriage counseling. But feels that she still struggles with anxiety and depression. She is tearful during the visit. Reports she has only one of the Xanax left and is requesting a refill at this visit. She reports she does not take them every day only when she cannot shut her brain off to go to sleep. She reports she believes 15 tablets will be enough to last 30 days. She is able to provide a urine sample and has signed the medication Agreement at this visit. She reports she needs multiple medication refills today at this visit . Review of Systems PHQ Score Initial Depression Screen Score: 0 SCORE Constitutional: no fever, no chills, no sweats, no weakness Skin: no Jaundice, no rash, no lesions, nopetechiae ENMT: no ear pain, no sore throat, no congestion, no hoarseness Respiratory: no shortness of breath, no cough, no orthopnea, no wheezing Cardiovascular: no chest pain, no palpitations, no edema Gastrointestinal: no nausea, no vomiting, no diarrhea, no GI bleeding Genitourinary: no dysuria, no hematuria, no discharge, no pain Musculoskeletal: no back pain, no trauma Neurologic: no headache, no dizziness, no numbness, no weakness Psychiatric: no sleeping problems, no irritability, no mood swings/depression. Heme/Lymph: no bleeding tendency, no bruising tendency, no petechiae, no swollen nodes Allergy/Immunologic: no seasonal allergies, no food allergies, no recurrent infections, no impaired immunity Additional ROS info: Except as noted in the above Review of Systems and in the History of Present Illness all other systems have been reviewed and are negative or noncontributory. Physical Exam Vitals & Measurements T: 36.9 ?C(Oral) HR: 79(Peripheral) RR: 16 BP: 132/84 SpO2: 97% HT: 63 in HT: 160 cm WT: 89.9 kg WT: 197.78 lb BMI: 35.12 General: alert, no acute distress Skin: warm, dry Head: no trauma, normocephalic Neck: Trachea midline, no adenopathy, no tenderness Eye: normal conjunctiva, sclera clear Cardiovascular: regular rate and rhythm, normal peripheral perfusion Respiratory: Lungs CTA, respirations non labored Extremities: no deformity, no trauma Neurological: oriented x 4, LOC appropriate for age speech normal Psychiatric: cooperative, affect appropriate for age, normal judgement, normal psychiatric thoughts. Assessment/Plan 1. Anxiety with depression (F41.8: Other specified anxiety disorders) Discussed with patient to continue with counseling [facility] Medication Agreement completed POC DRUG Screen completed f/u in 2 months 2. Insomnia disorder (G47.00: Insomnia, unspecified) Continue with the trazodone 50 mg one tablet po nightly Encouraged to not use electronics one hour before retiring each night Encouraged to keep a normal sleep routine Ordered: Drug Screen POC [id number] 3. Chronic sinusitis (J32.9: Chronic sinusitis, unspecified) Encouraged to continue with the CapMist BID- refilled at this visit Continue with the azelastine-fluticasone nasal spray Encouraged to continue with the Neti-Pot daily 4. Class 1 obesity due to excess calories in adult (E66.09: Other obesity due to excess calories) The standard range for ages 18 and older is >=18.5 and < 25 kg/m2. Your BMI today was above this range, this falls in the overweight to obese category and there are medical benefits to weight loss. We can offer counselling, referral, and/or medical support in addressing this problem. Your BMI and weight management will be followed at subsequent visits. 5. Smoker (F17.200: Nicotine dependence, unspecified, uncomplicated) We strongly recommend to quit tobacco use. Cigarette smoking harms nearly every organ of the body, causes many diseases, and reduces the health of smokers in general. Quitting smoking lowers your risk for smoking-related diseases and can add years to your life. We encourage you to visit www.smokefree.gov access to helpful resources including free telephone support. If you decide on prescription treatment to help you kellie (more content not included)... Normal [facility] Comment on above: Result Comment: Elec tronically Signed By: ANNABELLA MOONEY, KRISTINE Hassan\.br\Date and Time Signed: 04/20/24 09:22 EDT Family Medicine Office/Clini c Noteon 03-23-2024 Family Medicine Office/Clinic Note Family Medicine Office/Clinic Note HPI Staff Johanna is a 48 year old female presenting with Chronic sinusitis RADHA on 03/08- Discussed referral to ENT Only has a small sniffle and small cough Headache- no Earache- no Sinus Congestion- no Rhinorrhea- no Sore Throat- no Cough- slight wheezing- no Dyspnea on exertion- no Orthopnea- Trouble laying flat/breathing through nose: no Lung Hx (asthma, recurring bronchitis/chest colds, COPD)- no Fevers/chills- no GI symptoms- no History of Present Illness Patient presents today in f/u for chronic sinusitis. She reports her sinuses are better and she has been using the nasal spray as prescribed. She states she tried the 100 mg of trazodone and she reports it does help but she feels hung over the next day so she has been take 75 mg of trazodone and this helps. She states the last two nights she has only taken one of the trazodone and then a XANAX to help her sleep because her mind has been racing. She reports her and her have been at odds and this is causing her stress. She reports she did start back with cognitive behavioral therapy but is concerned she will be triggered and then she will quit going. She reports she does need some medication refills today at this visit. Review of Systems PHQ Score Initial Depression Screen Score: 1 SCORE Constitutional: no fever, no chills, no sweats, no weakness Skin: no Jaundice, no rash, no lesions, nopetechiae ENMT: no ear pain, no sore throat, no congestion, no hoarseness Respiratory: no shortness of breath, no cough, no orthopnea, no wheezing Cardiovascular: no chest pain, no palpitations, no edema Musculoskeletal: no back pain, no trauma Neurologic: no headache, no dizziness, no numbness, no weakness Psychiatric: moderate sleeping problems, no irritability, no mood swings/depression. Additional ROS info: Except as noted in the above Review of Systems and in the History of Present Illness all other systems have been reviewed and are negative or noncontributory. Physical Exam Vitals & Measurements T: 36.4 ?C(Oral) HR: 76(Peripheral) RR: 16 BP: 122/80 SpO2: 99% HT: 63 in HT: 160.0 cm WT: 92.6 kg WT: 203.72 lb BMI: 36.17 General: alert, no acute distress Skin: warm, dry Head: no trauma, normocephalic Neck: Trachea midline, no adenopathy, no tenderness Eye: normal conjunctiva, sclera clear ENMT: TM's clear, oral mucosa moist, no pharyngeal erythema or exudate Cardiovascular: regular rate and rhythm, normal peripheral perfusion Respiratory: Lungs CTA, respirations non labored Back: No tenderness, Normal ROM, Normal alignment. Extremities: no deformity, no trauma Neurological: oriented x 4, LOC appropriate for age speech normal Psychiatric: cooperative, affect appropriate for age, normal judgement, normal psychiatric thoughts. Assessment/Plan 1. Chronic sinusitis (J32.9: Chronic sinusitis, unspecified) Stable Chronic Managed with azelastine-fluticasone one spray in each nostril daily - Not refilled today Ordered: A1c POC 72544 2. Insomnia (G47.00: Insomnia, unspecified) Trazodone 50 mg take 1 1/2 tablet po nightly Patient reports snoring and is interested in a Home Sleep study Awaiting sleep study results f/u 4 weeks Ordered: A1c POC 63412 HST Home Sleep Testing 3. BMI 36.0-36.9,adult (Z68.36: Body mass index [BMI] 36.0-36.9, adult) The standard range for ages 18 and older is >=18.5 and < 25 kg/m2. Your BMI today was above this range, this falls in the overweight to obese category and there are medical benefits to weight loss. We can offer counselling, referral, and/or medical support in addressing this problem. Your BMI and weight management will be followed at subsequent visits. 4. Class 1 obesity due to excess calories in adult (E66.09: Other obesity due to excess calories) The standard range for ages 18 and older is >=18.5 and < 25 kg/m2. Your BMI today was above this range, this falls in the overweight to obese category and there are medical benefits to weight loss. We can offer counselling, referral, and/or medical support in addressing this problem. Your BMI and weight management will be followed at subsequent visits. 5. Smoker (F17.200: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 Phyllis Shi on 01-07-2024 ALT [Catalytic activity/Vol] 14 U/L 7-52 [facility] Albumin [Mass/volume] in Ser um or Plasma by Bromocresol green (BCG) dye binding methoOrdered By: Phyllis Shi on 01-07-2024 Albumin BCG dye [Mass/Vol] 4.5 g/dL 3.5-5.7 [facility] Alkaline phosphatase [Enzyma tic activity/volume] in Serum or PlasmaOrdered By: Phyllis Shi on 01-07-2024 ALP [Catalytic activity/Vol] 59 U/L 34-104 [facility] Aspartate aminotransferase [ Enzymatic activity/volume] in Serum or PlasmaOrdered By: Phyllis Shi on 01-07-2024 AST [Catalytic activity/Vol] 11 U/L 13-39 [facility] Bacteria [Presence] in Urine by AutomatedOrdered By: Phyllis Shi on 01-07-2024 Bacteria Auto Ql (U) None seen [HPF] None Seen [facility] Basophils Auto (Bld) [#/Vol] Ordered By: Phyllis Shi on 01-07-2024 Basophils (Bld) [#/Vol] 0.1 10*3/uL 0.0-0.2 [facility] Basophils/100 WBC Auto (Bld) Ordered By: Phyllis Shi on 01-07-2024 Basophils/100 WBC (Bld) 1.0 % . [facility] Bilirubin Test strip Ql (U)O rdered By: Phyllis Shi on 01-07-2024 Bilirubin Ql (U) Negative Negative [facility] Bilirubin.total [Mass/volume ] in Serum or PlasmaOrdered By: Phyllis Shi on 01-07-2024 Bilirubin [Mass/Vol] 0.3 mg/dL 0.3-1.0 [facility] Calcium [Mass/volume] in Ser um or PlasmaOrdered By: Phyllis Shi on 01-07-2024 Calcium [Mass/Vol] 9.6 mg/dL 8.6-10.3 [facility] Carbon dioxide, total [Moles /volume] in Serum or PlasmaOrdered By: Phyllis Shi on 01-07-2024 CO2 [Moles/Vol] 27.8 mmol/L 21.0-31.0 [facility] Chloride [Moles/volume] in S ryanne or PlasmaOrdered By: Phyllis Shi on 01-07-2024 Chloride [Moles/Vol] 105 mmol/L 98-107 [facility] Color Auto (U)Ordered By: Freda Tmimons on 01-07-2024 Color (U) Yellow Yellow [facility] Complement C3on 01-07-2024 Complement C3 145 mg/dL Normal 82-167 [facility] Comment on above: Result Comment: Perf ormed at: - [facility] [address] [id number] Descriptive Catalog Librarian: Ayad Sanchez PhD, Phone: [phone] Performed By: #### G LULS #### Point of Care testing , Complement C4on 01-07-2024 Complement C4 23 mg/dL Normal 12-38 [facility] Comment on above: Result Comment: PERF ORMED BY: [facility] [address] [place] [address] PATHOLOGIST SECURITY STRATEGIST CELESTINE SALAZAR M.D. Performed By: #### B MP, A1C WTH eA, MG, CBC, TSH3 #### [address] Complement Total (CH50)on Complement Total (CH50) >60 Normal >41 [facility] Comment on above: Result Comment: Age Male Female 1 - 30 days Not Estab. Not Estab. 31 days - 6 months >32 >20 7 months - 17 years >39 >39 >17 years >41 >41 NOTE: The adult ( >17 years ) reference interval range is used to flag abnormals on this report. If the patient is 17 years old or younger, use the table above to determine out of range values. Performed at: - [facility] [id number] Descriptive Catalog Librarian: Ayad Sanchez PhD, Phone: [phone] PERFORMED BY: [place] [address] PATHOLOGIST SECURITY STRATEGIST CELESTINE SALAZAR M.D. Performed By: #### B MP, A1C WTH eA, MG, CBC, TSH3 #### [address] Complete Blood Count Auto Di ffon 01-07-2024 Basophils (Bld) [#/Vol] 0.1 10*3/uL Normal 0.0-0.2 [facility] Comment on above: Performed By: #### G LULS #### Point of Care testing , Basophils/100 WBC (Bld) 1.0 % Normal . [facility] Comment on above: Performed By: #### G LULS #### Point of Care testing , Eosinophils (Bld) [#/Vol] 0.2 10*3/uL Normal 0.0-0.45 [facility] Comment on above: Performed By: #### G LULS #### Point of Care testing , Eosinophils/100 WBC (Bld) 2.1 % Normal . [facility] Comment on above: Performed By: #### G LULS #### Point of Care testing , Erythrocyte distribution width (RBC) [Ratio] 13.1 % Normal 11.9-15.3 [facility] Comment on above: Performed By: #### G LULS #### Point of Care testing , Hematocrit (Bld) [Volume fraction] 40.6 % Normal 34.0-46.4 [facility] Comment on above: Performed By: #### G LULS #### Point of Care testing , Hemoglobin (Bld) [Mass/Vol] 14.0 g/dL Normal 11.8-15.4 [facility] Comment on above: Performed By: #### G LULS #### Point of Care testing , Lymphocytes (Bld) [#/Vol] 3.7 10*3/uL Normal 1.00-4.8 [facility] Comment on above: Performed By: #### G LULS #### Point of Care testing , Lymphocytes/100 WBC (Bld) 38.2 % Normal . [facility] Comment on above: Performed By: #### G LULS #### Point of Care testing , MCH (RBC) [Entitic mass] 31.6 pg Normal 24.7-34.3 [facility] Comment on above: Performed By: #### G LULS #### Point of Care testing , MCV (RBC) [Entitic vol] 91.8 fL Normal 80-100 [facility] Comment on above: Performed By: #### G LULS #### Point of Care testing , Mean Corpuscular HGB Conc 34.4 g/dL Normal 32.0-35.0 [facility] Comment on above: Performed By: #### G LULS #### Point of Care testing , Monocytes (Bld) [#/Vol] 0.6 10*3/uL Normal 0.0-0.8 [facility] Comment on above: Performed By: #### G LULS #### Point of Care testing , Monocytes/100 WBC (Bld) 6.0 % Normal . [facility] Comment on above: Performed By: #### G LULS #### Point of Care testing , Neutrophils (Bld) [#/Vol] 5.2 10*3/uL Normal 1.8-7.7 [facility] Comment on above: Performed By: #### G LULS #### Point of Care testing , Neutrophils/100 WBC (Bld) 52.7 % Normal . [facility] Comment on above: Performed By: #### G LULS #### Point of Care testing , NRBC% 0.1 /100{WBC} Normal 0-0.5 [facility] Comment on above: Performed By: #### G LULS #### Point of Care testing , Platelet mean volume (Bld) [Entitic vol] 8.4 fL Normal 6.3-10.7 [facility] Comment on above: Performed By: #### G LULS #### Point of Care testing , Platelets (Bld) [#/Vol] 254 10*3/uL Normal 150-450 [facility] Comment on above: Performed By: #### G LULS #### Point of Care testing , RBC (Bld) [#/Vol] 4.42 10*6/uL Normal 3.60-5.00 [facility] Comment on above: Performed By: #### G LULS #### Point of Care testing , WBC (Bld) [#/Vol] 9.8 10*3/uL Normal 3.8-11.6 [facility] Comment on above: Performed By: #### G LULS #### Point of Care testing , Comprehensive Metabolic Pane dustin 01-07-2024 Albumin [Mass/Vol] 4.5 g/dL Normal 3.5-5.7 [facility] Comment on above: Performed By: #### G LULS #### Point of Care testing , Albumin/Globulin [Mass ratio] 2.0 {ratio} Normal [facility] Comment on above: Performed By: #### G LULS #### Point of Care testing , ALP [Catalytic activity/Vol] 59 U/L Normal 34-104 [facility] Comment on above: Result Comment: PERF ORMED BY: [facility] [address] [place] [address] PATHOLOGIST SECURITY STRATEGIST CELESTINE SALAZAR M.D. Performed By: #### G LULS #### Point of Care testing , ALT [Catalytic activity/Vol] 14 U/L Normal 7-52 [facility] Comment on above: Performed By: #### G LULS #### Point of Care testing , Anion gap [Moles/Vol] 9.5 mmol/L Normal 6.0-15.0 [facility] Comment on above: Performed By: #### G LULS #### Point of Care testing , AST [Catalytic activity/Vol] 11 U/L Low 13-39 [facility] Comment on above: Performed By: #### G LULS #### Point of Care testing , Bilirubin [Mass/Vol] 0.3 mg/dL Normal 0.3-1.0 [facility] Comment on above: Performed By: #### G LULS #### Point of Care testing , Calcium [Mass/Vol] 9.6 mg/dL Normal 8.6-10.3 [facility] Comment on above: Performed By: #### G LULS #### Point of Care testing , Chloride [Moles/Vol] 105 mmol/L Normal 98-107 [facility] Comment on above: Performed By: #### G LULS #### Point of Care testing , CO2 [Moles/Vol] 27.8 mmol/L Normal 21.0-31.0 [facility] Comment on above: Performed By: #### G LULS #### Point of Care testing , Creatinine [Mass/Vol] 0.66 mg/dL Normal 0.60-1.20 [facility] Comment on above: Performed By: #### G LULS #### Point of Care testing , GFR/1.73 sq M.predicted MDRD (S/P/Bld) [Vol rate/Area] mL/min/{1.73_m2} Normal [facility] Comment on above: Performed By: #### G LULS #### Point of Care testing , Globulin (S) [Mass/Vol] 2.2 g/dL Normal T [facility] Comment on above: Performed By: #### G LULS #### Point of Care testing , Glucose [Mass/Vol] 89 mg/dL Normal 70-100 [facility] Comment on above: Result Comment: [facility] Glucose Reference Range is dependent on time and content of last meal. Glucose of more than 200 mg/dL in a nonstressed, ambulatory subject supports the diagnosis of Diabetes Mellitus. ADA recommended reference range Performed By: #### G LULS #### Point of Care testing , Potassium [Moles/Vol] 4.3 mmol/L Normal 3.5-5.1 [facility] Comment on above: Performed By: #### G LULS #### Point of Care testing , Protein [Mass/Vol] 6.7 g/dL Normal 6.4-8.9 [facility] Comment on above: Performed By: #### G LULS #### Point of Care testing , Sodium [Moles/Vol] 138 mmol/L Normal 136-145 [facility] Comment on above: Performed By: #### G LULS #### Point of Care testing , Urea nitrogen [Mass/Vol] 13 mg/dL Normal 7-25 [facility] Comment on above: Performed By: #### G LULS #### Point of Care testing , Creatinine [Mass/volume] in Serum or PlasmaOrdered By: Phyllis Shi on 01-07-2024 Creatinine [Mass/Vol] 0.66 mg/dL 0.60-1.20 [facility] Dipstick and Microscopicon 0 01-07-2024 Appearance (U) Clear Normal Clear [facility] Comment on above: Order Comment: Name Collection Type:: Clean-Voided Midstream Performed By: #### G LULS #### Point of Care testing , Bacteria,Urine None Seen Normal None Seen [facility] Comment on above: Order Comment: Name Collection Type:: Clean-Voided Midstream Performed By: #### G LULS #### Point of Care testing , Bilirubin,Urine Negative Normal Negative [facility] Comment on above: Order Comment: Name Collection Type:: Clean-Voided Midstream Performed By: #### G LULS #### Point of Care testing , Color (U) Yellow Normal Yellow [facility] Comment on above: Order Comment: Name Collection Type:: Clean-Voided Midstream Performed By: #### G LULS #### Point of Care testing , Glucose Ql (U) Normal Normal Normal [facility] Comment on above: Order Comment: Name Collection Type:: Clean-Voided Midstream Performed By: #### G LULS #### Point of Care testing , Hyaline Casts,Urine 0-8 Normal 0-8 [facility] Comment on above: Order Comment: Name Collection Type:: Clean-Voided Midstream Result Comment: PERF ORMED BY: [facility] [address] [place] [address] PATHOLOGIST SECURITY STRATEGIST CELESTINE SALAZAR M.D. Performed By: #### G LULS #### Point of Care testing , Ketones Ql (U) Negative Normal Negative [facility] Comment on above: Order Comment: Name Collection Type:: Clean-Voided Midstream Performed By: #### G LULS #### Point of Care testing , Leukocyte esterase Test strip Ql (U) Negative Normal Negative [facility] Comment on above: Order Comment: Name Collection Type:: Clean-Voided Midstream Performed By: #### G LULS #### Point of Care testing , Nitrite,Urine Negative Normal Negative [facility] Comment on above: Order Comment: Name Collection Type:: Clean-Voided Midstream Performed By: #### G LULS #### Point of Care testing , Occult Blood,Urine Negative Normal Negative [facility] Comment on above: Order Comment: Name Collection Type:: Clean-Voided Midstream Performed By: #### G LULS #### Point of Care testing , pH (U) 5.5 [pH] Normal 5.0-9.0 [facility] Comment on above: Order Comment: Name Collection Type:: Clean-Voided Midstream Performed By: #### G LULS #### Point of Care testing , Protein,Urine Negative Normal Negative [facility] Comment on above: Order Comment: Name Collection Type:: Clean-Voided Midstream Performed By: #### G LULS #### Point of Care testing , RBC,Urine 5-9 High 0-4 [facility] Comment on above: Order Comment: Name Collection Type:: Clean-Voided Midstream Performed By: #### G LULS #### Point of Care testing , Specificy [place],Urine 1.020 Normal 1.00 1-1.03 0 [facility] Comment on above: Order Comment: Name Collection Type:: Clean-Voided Midstream Performed By: #### G LULS #### Point of Care testing , Squamous Epithelial Cell,Urine 0-1 Normal 0-2 [facility] Comment on above: Order Comment: Name Collection Type:: Clean-Voided Midstream Performed By: #### G LULS #### Point of Care testing , Urobilinogen,Urine Normal Normal Normal [facility] Comment on above: Order Comment: Name Collection Type:: Clean-Voided Midstream Performed By: #### G LULS #### Point of Care testing , WBC LM.HPF (Urine sed) [#/Area] 0 /[HPF] Normal 0-4 [facility] Comment on above: Order Comment: Name Collection Type:: Clean-Voided Midstream Performed By: #### G LULS #### Point of Care testing , Eosinophils Auto (Bld) [#/Vo l]Ordered By: Phyllis Shi on 01-07-2024 Eosinophils (Bld) [#/Vol] 0.2 10*3/uL 0.0-0.45 [facility] Eosinophils/100 WBC Auto (Bl d)Ordered By: Phyllis Shi on 01-07-2024 Eosinophils/100 WBC (Bld) 2.1 % . [facility] Erythrocyte Sedimentation Ra lyndsey 01-07-2024 ESR (Bld) [Velocity] 4 mm/h Normal 0-19 [facility] Comment on above: Result Comment: PERF ORMED BY: [facility] [address] [place] [address] PATHOLOGIST SECURITY STRATEGIST CELESTINE SALAZAR M.D. Performed By: #### G LULS #### Point of Care testing , Erythrocyte distribution wid th Auto (RBC) [Ratio]Ordered By: Phyllis Shi on 01-07-2024 Erythrocyte distribution width (RBC) [Ratio] 13.1 % 11.9-15.3 [facility] Erythrocyte sedimentation ra te by Photometric methodOrdered By: Phyllis Shi on 01-07-2024 ESR Photometric method (Bld) [Velocity] 4 mm/hr 0-19 [facility] Erythrocytes [#/area] in Uri ne sediment by Automated countOrdered By: Phyllis Shi on 01-07-2024 RBC Auto (Urine sed) [#/Area] 5-9 [HPF] 0-4 [facility] Globulin Calc (S) [Mass/Vol] Ordered By: Phyllis Shi on 01-07-2024 Globulin (S) [Mass/Vol] 2.2 g/dL F [facility] Glucose [Mass/volume] in Ser um or PlasmaOrdered By: Phyllis Shi on 01-07-2024 Glucose [Mass/Vol] 89 mg/dL 70-100 [facility] Comment on above: ADA recommended refe rence rangeRandom Glucose Reference Range is dependent on time and content of last meal. Glucose of more than 200 mg/dL in a nonstressed, ambulatory subject supports the diagnosis of Diabetes Mellitus. Hematocrit Auto (Bld) [Volum e fraction]Ordered By: Phyllis Shi on 01-07-2024 Hematocrit (Bld) [Volume fraction] 40.6 % 34.0-46.4 [facility] Hemoglobin [Mass/volume] in BloodOrdered By: Phyllis Shi on 01-07-2024 Hemoglobin (Bld) [Mass/Vol] 14.0 g/dL 11.8-15.4 [facility] Ketones Auto test strip (U) [Mass/Vol]Ordered By: Phyllis Shi on 01-07-2024 Ketones (U) [Mass/Vol] Negative Negative Fi [facility] - UrinalysisOrder ed By: Phyllis Shi on 01-07-2024 Hyaline casts LM Ql (Urine sed) 0-8 [LPF] 0-8 [facility] Leukocytes [#/area] in Urine sediment by Automated countOrdered By: Phyllis Shi on 01-07-2024 WBC Auto (Urine sed) [#/Area] 0-1 [HPF] 0-4 [facility] Leukocytes [#/volume] correc nanda for nucleated erythrocytes in Blood by Automated counOrdered By: Phyllis Shi on 01-07-2024 WBC corrected for nucl RBC Auto (Bld) [#/Vol] 9.8 10*3/uL 3.8-11.6 [facility] Lymphocytes Auto (Bld) [#/Vo l]Ordered By: Phyllis Shi on 01-07-2024 Lymphocytes (Bld) [#/Vol] 3.7 10*3/uL 1.00-4.8 [facility] Lymphocytes/100 WBC Auto (Bl d)Ordered By: Phyllis Shi on 01-07-2024 Lymphocytes/100 WBC (Bld) 38.2 % . [facility] MCH Auto (RBC) [Entitic mass ]Ordered By: Phyllis Shi on 01-07-2024 MCH (RBC) [Entitic mass] 31.6 pg 24.7-34.3 [facility] MCHC Auto (RBC) [Mass/Vol]Or dered By: Phyllis Shi on 01-07-2024 MCHC (RBC) [Mass/Vol] 34.4 g/dL 32.0-35.0 [facility] MCV Auto (RBC) [Entitic vol] Ordered By: Phyllis Shi on 01-07-2024 MCV (RBC) [Entitic vol] 91.8 fL 80-100 [facility] Monocytes Auto (Bld) [#/Vol] Ordered By: Phyllis Shi on 01-07-2024 Monocytes (Bld) [#/Vol] 0.6 10*3/uL 0.0-0.8 [facility] Monocytes/100 WBC Auto (Bld) Ordered By: Phyllis Shi on 01-07-2024 Monocytes/100 WBC (Bld) 6.0 % . [facility] Neutrophils Auto (Bld) [#/Vo l]Ordered By: Phyllis Shi on 01-07-2024 Neutrophils (Bld) [#/Vol] 5.2 10*3/uL 1.8-7.7 [facility] Neutrophils/100 WBC Auto (Bl d)Ordered By: Phyllis Shi on 01-07-2024 Neutrophils/100 WBC (Bld) 52.7 % . [facility] Nitrite Test strip Ql (U)Ord ered By: Phyllis Shi on 01-07-2024 Nitrite Ql (U) Negative Negative [facility] No Panel InformationOrdered By: Phyllis Shi on 01-07-2024 Estimated GFR (CKD-EPI) > 60.0 mL/Min [facility] Creatinine Clearance (Chem N/A [facility] Nucleated erythrocytes [Pres ence] in Blood by Automated countOrdered By: Phyllis Shi on 01-07-2024 Nucleated RBC Auto Ql (Bld) 0.1 /100{WBC} 0-0.5 [facility] Platelet mean volume Auto (B ld) [Entitic vol]Ordered By: Phyllis Shi on 01-07-2024 Platelet mean volume (Bld) [Entitic vol] 8.4 fL 6.3-10.7 [facility] Platelets Auto (Bld) [#/Vol] Ordered By: Phyllis Shi on 01-07-2024 Platelets (Bld) [#/Vol] 254 10*3/uL 150-450 [facility] Potassium [Moles/volume] in Serum or PlasmaOrdered By: Phyllis Shi on 01-07-2024 Potassium [Moles/Vol] 4.3 mmol/L 3.5-5.1 [facility] Protein Auto test strip (U) [Mass/Vol]Ordered By: Phyllis Shi on 01-07-2024 Protein (U) [Mass/Vol] Negative Negative [facility] Protein [Mass/volume] in Ser um or PlasmaOrdered By: Phyllis Shi on 01-07-2024 Protein [Mass/Vol] 6.7 g/dL 6.4-8.9 [facility] RBC Auto (Bld) [#/Vol]Ordere d By: Phyllis Shi on 01-07-2024 RBC (Bld) [#/Vol] 4.42 10*6/uL 3.60-5.00 [facility] Serum or plasma albumin/glob ulin mass ratioOrdered By: Phyllis Shi on 01-07-2024 Albumin/Globulin [Mass ratio] 2.0 {ratio} [facility] Serum or plasma anion gap de terminationOrdered By: Phyllis Shi on 01-07-2024 Anion gap [Moles/Vol] 9.5 mmol/L 6.0-15.0 [facility] Sodium [Moles/volume] in Ser um or PlasmaOrdered By: Phyllis Shi on 01-07-2024 Sodium [Moles/Vol] 138 mmol/L 136-145 [facility] Specific gravity Auto test s trip (U) [Rel density]Ordered By: Phyllis Shi on 01-07-2024 Specific gravity (U) [Rel density] 1.020 1.001-1.03 0 [facility] Squamous epithelial cells de tection in urine sediment by light microscopyOrdered By: Phyllis Shi on 01-07-2024 Epithelial cells.squamous LM Ql (Urine sed) 0-1 [HPF] 0-2 [facility] Urea nitrogen [Mass/volume] in Serum or PlasmaOrdered By: Phyllis Shi on 01-07-2024 Urea nitrogen [Mass/Vol] 13 mg/dL 7-25 [facility] Urine clarity by refractomet ry automatedOrdered By: Phyllis Shi on 01-07-2024 Clarity Refractometry automated (U) Clear Clear [facility] Urine glucose measurement by automated test strip (mass/volume)Ordered By: Phyllis Shi on 01-07-2024 Glucose Auto test strip (U) [Mass/Vol] Normal mg/dL Normal [facility] Urine hemoglobin detection b y automated test stripOrdered By: Phyllis Shi on 01-07-2024 Hemoglobin Auto test strip Ql (U) Negative Negative [facility] Urine leukocyte esterase det ection by automated test stripOrdered By: Phyllis Shi on 01-07-2024 Leukocyte esterase Auto test strip Ql (U) Negative Negative [facility] Urobilinogen Auto test strip (U) [Mass/Vol]Ordered By: Phyllis Shi on 01-07-2024 Urobilinogen (U) [Mass/Vol] Normal mg/dL Normal [facility] WBC Auto (Bld) [#/Vol]Ordere d By: Phyllis Shi on 01-07-2024 WBC (Bld) [#/Vol] 9.8 10*3/uL 3.8-11.6 [facility] pH Auto test strip (U)Ordere d By: Phyllis Shi on 01-07-2024 pH (U) 5.5 [pH] 5.0-9.0 [facility] Alanine aminotransferase [En zymatic activity/volume] in Serum or PlasmaOrdered By: Phyllis Shi on 09-08-2023 ALT [Catalytic activity/Vol] 14 U/L 7-52 [facility] Albumin [Mass/volume] in Ser um or Plasma by Bromocresol green (BCG) dye binding methoOrdered By: Phyllis Shi on 09-08-2023 Albumin BCG dye [Mass/Vol] 4.6 g/dL 3.5-5.7 [facility] Alkaline phosphatase [Enzyma tic activity/volume] in Serum or PlasmaOrdered By: Phyllis Shi on 09-08-2023 ALP [Catalytic activity/Vol] 58 U/L 34-104 [facility] Aspartate aminotransferase [ Enzymatic activity/volume] in Serum or PlasmaOrdered By: Phyllis Shi on 09-08-2023 AST [Catalytic activity/Vol] 12 U/L 13-39 [facility] Basophils Auto (Bld) [#/Vol] Ordered By: Phyllis Shi on 09-08-2023 Basophils (Bld) [#/Vol] 0.1 10*3/uL 0.0-0.2 [facility] Basophils/100 WBC Auto (Bld) Ordered By: Phyllis Shi on 09-08-2023 Basophils/100 WBC (Bld) 0.6 % . [facility] Bilirubin.total [Mass/volume ] in Serum or PlasmaOrdered By: Phyllis Shi on 09-08-2023 Bilirubin [Mass/Vol] 0.6 mg/dL 0.3-1.0 [facility] Calcium [Mass/volume] in Ser um or PlasmaOrdered By: Phyllis Shi on 09-08-2023 Calcium [Mass/Vol] 9.7 mg/dL 8.6-10.3 [facility] Carbon dioxide, total [Moles /volume] in Serum or PlasmaOrdered By: Phyllis Shi on 09-08-2023 CO2 [Moles/Vol] 28.9 mmol/L 21.0-31.0 [facility] Chloride [Moles/volume] in S ryanne or PlasmaOrdered By: Phyllis Shi on 09-08-2023 Chloride [Moles/Vol] 102 mmol/L 98-107 [facility] Complement C3on 09-08-2023 Complement C3 145 mg/dL Normal 82-167 [facility] Comment on above: Result Comment: Perf ormed at: - [facility] [address] [id number] Descriptive Catalog Librarian: Ayad Sanchez PhD, Phone: [phone] Performed By: #### B MP, A1C WTH eA, MG, CBC, TSH3 #### [facility] [address] [place] [address] Complement C4on 09-08-2023 Complement C4 33 mg/dL Normal 12-38 [facility] Comment on above: Result Comment: PERF ORMED BY: [place] [address] PATHOLOGIST SECURITY STRATEGIST CELESTINE SALAZAR M.D. Performed By: #### B MP, A1C WTH eA, MG, CBC, TSH3 #### [facility] [address] [place] [address] Complement Total (CH50)on Complement Total (CH50) 58 Normal >41 [facility] Comment on above: Result Comment: Age Male Female 1 - 30 days Not Estab. Not Estab. 31 days - 6 months >32 >20 7 months - 17 years >39 >39 >17 years >41 >41 NOTE: The adult ( >17 years ) reference interval range is used to flag abnormals on this report. If the patient is 17 years old or younger, use the table above to determine out of range values. Performed at: - [facility] [id number] Descriptive Catalog Librarian: Ayad Sanchez PhD, Phone: [phone] PERFORMED BY: [place] [address] PATHOLOGIST SECURITY STRATEGIST CELESTINE SALAZAR M.D. Performed By: #### B MP, A1C WTH eA, MG, CBC, TSH3 #### [address] Complete Blood Count Auto Di ffon 09-08-2023 Basophils (Bld) [#/Vol] 0.1 10*3/uL Normal 0.0-0.2 [facility] Comment on above: Performed By: #### B MP, A1C WTH eA, MG, CBC, TSH3 #### [address] Basophils/100 WBC (Bld) 0.6 % Normal . T merari [facility] Comment on above: Performed By: #### B MP, A1C WTH eA, MG, CBC, TSH3 #### [address] Eosinophils (Bld) [#/Vol] 0.0 10*3/uL Normal 0.0-0.45 [facility] Comment on above: Performed By: #### B MP, A1C WTH eA, MG, CBC, TSH3 #### [address] Eosinophils/100 WBC (Bld) 0.4 % Normal . [facility] Comment on above: Performed By: #### B MP, A1C WTH eA, MG, CBC, TSH3 #### [address] Erythrocyte distribution width (RBC) [Ratio] 13.5 % Normal 11.9-15.3 [facility] Comment on above: Performed By: #### B MP, A1C WTH eA, MG, CBC, TSH3 #### [address] Hematocrit (Bld) [Volume fraction] 42.1 % Normal 34.0-46.4 [facility] Comment on above: Performed By: #### B MP, A1C WTH eA, MG, CBC, TSH3 #### [address] Hemoglobin (Bld) [Mass/Vol] 14.3 g/dL Normal 11.8-15.4 [facility] Comment on above: Performed By: #### B MP, A1C WTH eA, MG, CBC, TSH3 #### [address] Lymphocytes (Bld) [#/Vol] 3.4 10*3/uL Normal 1.00-4.8 [facility] Comment on above: Performed By: #### B MP, A1C WTH eA, MG, CBC, TSH3 #### [address] Lymphocytes/100 WBC (Bld) 28.4 % Normal . [facility] Comment on above: Performed By: #### B MP, A1C WTH eA, MG, CBC, TSH3 #### [address] MCH (RBC) [Entitic mass] 32.3 pg Normal 24.7-34.3 [facility] Comment on above: Performed By: #### B MP, A1C WTH eA, MG, CBC, TSH3 #### [address] MCV (RBC) [Entitic vol] 94.9 fL Normal 80-100 [facility] Comment on above: Performed By: #### B MP, A1C WTH eA, MG, CBC, TSH3 #### [address] Mean Corpuscular HGB Conc 34.1 g/dL Normal 32.0-35.0 [facility] Comment on above: Performed By: #### B MP, A1C WTH eA, MG, CBC, TSH3 #### [place] [address] [place] Monocytes (Bld) [#/Vol] 0.8 10*3/uL Normal 0.0-0.8 [facility] Comment on above: Performed By: #### B MP, A1C WTH eA, MG, CBC, TSH3 #### [address] Monocytes/100 WBC (Bld) 6.5 % Normal . T [facility] Comment on above: Performed By: #### B MP, A1C WTH eA, MG, CBC, TSH3 #### [address] Neutrophils (Bld) [#/Vol] 7.7 10*3/uL Normal 1.8-7.7 [facility] Comment on above: Performed By: #### B MP, A1C WTH eA, MG, CBC, TSH3 #### [address] Neutrophils/100 WBC (Bld) 64.1 % Normal . [facility] Comment on above: Performed By: #### B MP, A1C WTH eA, MG, CBC, TSH3 #### [address] NRBC% 0.1 /100{WBC} Normal 0-0.5 [facility] Comment on above: Performed By: #### B MP, A1C WTH eA, MG, CBC, TSH3 #### [place] [address] [place] Platelet mean volume (Bld) [Entitic vol] 8.0 fL Normal 6.3-10.7 [facility] Comment on above: Performed By: #### B MP, A1C WTH eA, MG, CBC, TSH3 #### [place] [address] [place] Platelets (Bld) [#/Vol] 274 10*3/uL Normal 150-450 [facility] Comment on above: Performed By: #### B MP, A1C WTH eA, MG, CBC, TSH3 #### [address] RBC (Bld) [#/Vol] 4.43 10*6/uL Normal 3.60-5.00 [facility] Comment on above: Performed By: #### B MP, A1C WTH eA, MG, CBC, TSH3 #### [address] WBC (Bld) [#/Vol] 12.0 10*3/uL High 3.8-11.6 [facility] Comment on above: Performed By: #### B MP, A1C WTH eA, MG, CBC, TSH3 #### [address] Comprehensive Metabolic Pane dustin 09-08-2023 Albumin [Mass/Vol] 4.6 g/dL Normal 3.5-5.7 [facility] Comment on above: Performed By: #### B MP, A1C WTH eA, MG, CBC, TSH3 #### [address] Albumin/Globulin [Mass ratio] 2.1 {ratio} Normal [facility] Comment on above: Performed By: #### B MP, A1C WTH eA, MG, CBC, TSH3 #### [address] ALP [Catalytic activity/Vol] 58 U/L Normal 34-104 [facility] Comment on above: Result Comment: PERF ORMED BY: [place] [address] PATHOLOGIST SECURITY STRATEGIST CELESTINE SALAZAR M.D. Performed By: #### B MP, A1C WTH eA, MG, CBC, TSH3 #### [address] ALT [Catalytic activity/Vol] 14 U/L Normal 7-52 [facility] Comment on above: Performed By: #### B MP, A1C WTH eA, MG, CBC, TSH3 #### [address] Anion gap [Moles/Vol] 11.0 mmol/L Normal 6.0-15.0 [facility] Comment on above: Performed By: #### B MP, A1C WTH eA, MG, CBC, TSH3 #### [address] AST [Catalytic activity/Vol] 12 U/L Low 13-39 [facility] Comment on above: Performed By: #### B MP, A1C WTH eA, MG, CBC, TSH3 #### [address] Bilirubin [Mass/Vol] 0.6 mg/dL Normal 0.3-1.0 [facility] Comment on above: Performed By: #### B MP, A1C WTH eA, MG, CBC, TSH3 #### [address] Calcium [Mass/Vol] 9.7 mg/dL Normal 8.6-10.3 [facility] Comment on above: Performed By: #### B MP, A1C WTH eA, MG, CBC, TSH3 #### [address] Chloride [Moles/Vol] 102 mmol/L Normal 98-107 [facility] Comment on above: Performed By: #### B MP, A1C WTH eA, MG, CBC, TSH3 #### [address] CO2 [Moles/Vol] 28.9 mmol/L Normal 21.0-31.0 [facility] Comment on above: Performed By: #### B MP, A1C WTH eA, MG, CBC, TSH3 #### [address] Creatinine [Mass/Vol] 0.72 mg/dL Normal 0.60-1.20 [facility] Comment on above: Performed By: #### B MP, A1C WTH eA, MG, CBC, TSH3 #### [facility] [address] GFR/1.73 sq M.predicted MDRD (S/P/Bld) [Vol rate/Area] mL/min/{1.73_m2} Normal [facility] Comment on above: Performed By: #### B MP, A1C WTH eA, MG, CBC, TSH3 #### [facility] [address] Globulin (S) [Mass/Vol] 2.2 g/dL Normal T [facility] Comment on above: Performed By: #### B MP, A1C WTH eA, MG, CBC, TSH3 #### [address] Glucose [Mass/Vol] 86 mg/dL Normal 70-100 [facility] Comment on above: Result Comment: [facility] Glucose Reference Range is dependent on time and content of last meal. Glucose of more than 200 mg/dL in a nonstressed, ambulatory subject supports the diagnosis of Diabetes Mellitus. ADA recommended reference range Performed By: #### B MP, A1C WTH eA, MG, CBC, TSH3 #### [address] Potassium [Moles/Vol] 3.9 mmol/L Normal 3.5-5.1 [facility] Comment on above: Performed By: #### B MP, A1C WTH eA, MG, CBC, TSH3 #### [place] [address] [place] Protein [Mass/Vol] 6.8 g/dL Normal 6.4-8.9 [facility] Comment on above: Performed By: #### B MP, A1C WTH eA, MG, CBC, TSH3 #### [address] Sodium [Moles/Vol] 138 mmol/L Normal 136-145 [facility] Comment on above: Performed By: #### B MP, A1C WTH eA, MG, CBC, TSH3 #### [address] Urea nitrogen [Mass/Vol] 17 mg/dL Normal 7-25 [facility] Comment on above: Performed By: #### B MP, A1C WTH eA, MG, CBC, TSH3 #### [facility] [address] Creatinine [Mass/volume] in Serum or PlasmaOrdered By: Phyllis Shi on 09-08-2023 Creatinine [Mass/Vol] 0.72 mg/dL 0.60-1.20 [facility] Eosinophils Auto (Bld) [#/Vo l]Ordered By: Phyllis Shi on 09-08-2023 Eosinophils (Bld) [#/Vol] 0.0 10*3/uL 0.0-0.45 [facility] Eosinophils/100 WBC Auto (Bl d)Ordered By: Phyllis Shi on 09-08-2023 Eosinophils/100 WBC (Bld) 0.4 % . [facility] Erythrocyte Sedimentation Ra lyndsey 09-08-2023 ESR (Bld) [Velocity] 10 mm/h Normal 0-19 [facility] Comment on above: Result Comment: PERF ORMED BY: [place] [address] PATHOLOGIST SECURITY STRATEGIST CELESTINE SALAZAR M.D. Performed By: #### B MP, A1C WTH eA, MG, CBC, TSH3 #### [address] Erythrocyte distribution wid th Auto (RBC) [Ratio]Ordered By: Phyllis Shi on 09-08-2023 Erythrocyte distribution width (RBC) [Ratio] 13.5 % 11.9-15.3 [facility] Erythrocyte sedimentation ra te by Photometric methodOrdered By: Phyllis Shi on 09-08-2023 ESR Photometric method (Bld) [Velocity] 10 mm/hr 0-19 [facility] Globulin Calc (S) [Mass/Vol] Ordered By: Phyllis Shi on 09-08-2023 Globulin (S) [Mass/Vol] 2.2 g/dL [facility] Glucose [Mass/volume] in Ser um or PlasmaOrdered By: Phyllis Shi on 09-08-2023 Glucose [Mass/Vol] 86 mg/dL 70-100 [facility] Comment on above: ADA recommended refe rence rangeRandom Glucose Reference Range is dependent on time and content of last meal. Glucose of more than 200 mg/dL in a nonstressed, ambulatory subject supports the diagnosis of Diabetes Mellitus. Hematocrit Auto (Bld) [Volum e fraction]Ordered By: Phyllis Shi on 09-08-2023 Hematocrit (Bld) [Volume fraction] 42.1 % 34.0-46.4 [facility] Hemoglobin [Mass/volume] in BloodOrdered By: Phyllis Shi on 09-08-2023 Hemoglobin (Bld) [Mass/Vol] 14.3 g/dL 11.8-15.4 [facility] Leukocytes [#/volume] correc nanda for nucleated erythrocytes in Blood by Automated counOrdered By: Phyllis Shi on 09-08-2023 WBC corrected for nucl RBC Auto (Bld) [#/Vol] 12.0 10*3/uL 3.8-11.6 [facility] Lymphocytes Auto (Bld) [#/Vo l]Ordered By: Phyllis Shi on 09-08-2023 Lymphocytes (Bld) [#/Vol] 3.4 10*3/uL 1.00-4.8 [facility] Lymphocytes/100 WBC Auto (Bl d)Ordered By: Phyllis Shi on 09-08-2023 Lymphocytes/100 WBC (Bld) 28.4 % . [facility] MCH Auto (RBC) [Entitic mass ]Ordered By: Phyllis Shi on 09-08-2023 MCH (RBC) [Entitic mass] 32.3 pg 24.7-34.3 [facility] MCHC Auto (RBC) [Mass/Vol]Or dered By: Phyllis Shi on 09-08-2023 MCHC (RBC) [Mass/Vol] 34.1 g/dL 32.0-35.0 [facility] MCV Auto (RBC) [Entitic vol] Ordered By: Phyllis Shi on 09-08-2023 MCV (RBC) [Entitic vol] 94.9 fL 80-100 F [facility] Monocytes Auto (Bld) [#/Vol] Ordered By: Phyllis Shi on 09-08-2023 Monocytes (Bld) [#/Vol] 0.8 10*3/uL 0.0-0.8 [facility] Monocytes/100 WBC Auto (Bld) Ordered By: Phyllis Shi on 09-08-2023 Monocytes/100 WBC (Bld) 6.5 % . F [facility] Neutrophils Auto (Bld) [#/Vo l]Ordered By: Phyllis Shi on 09-08-2023 Neutrophils (Bld) [#/Vol] 7.7 10*3/uL 1.8-7.7 [facility] Neutrophils/100 WBC Auto (Bl d)Ordered By: Phyllis Shi on 09-08-2023 Neutrophils/100 WBC (Bld) 64.1 % . [facility] No Panel InformationOrdered By: Phyllis Shi on 09-08-2023 Estimated GFR (CKD-EPI) > 60.0 mL/Min [facility] Creatinine Clearance (Chem N/A [facility] Nucleated erythrocytes [Pres ence] in Blood by Automated countOrdered By: Phyllis Shi on 09-08-2023 Nucleated RBC Auto Ql (Bld) 0.1 /100{WBC} 0-0.5 [facility] Platelet mean volume Auto (B ld) [Entitic vol]Ordered By: Phyllis Shi on 09-08-2023 Platelet mean volume (Bld) [Entitic vol] 8.0 fL 6.3-10.7 [facility] Platelets Auto (Bld) [#/Vol] Ordered By: Phyllis Shi on 09-08-2023 Platelets (Bld) [#/Vol] 274 10*3/uL 150-450 [facility] Potassium [Moles/volume] in Serum or PlasmaOrdered By: Phyllis Shi on 09-08-2023 Potassium [Moles/Vol] 3.9 mmol/L 3.5-5.1 [facility] Protein [Mass/volume] in Ser um or PlasmaOrdered By: Phyllis Shi on 09-08-2023 Protein [Mass/Vol] 6.8 g/dL 6.4-8.9 [facility] RBC Auto (Bld) [#/Vol]Ordere d By: Phyllis Shi on 09-08-2023 RBC (Bld) [#/Vol] 4.43 10*6/uL 3.60-5.00 [facility] Serum or plasma albumin/glob ulin mass ratioOrdered By: Phyllis Shi on 09-08-2023 Albumin/Globulin [Mass ratio] 2.1 {ratio} [facility] Serum or plasma anion gap de terminationOrdered By: Phyllis Shi on 09-08-2023 Anion gap [Moles/Vol] 11.0 mmol/L 6.0-15.0 [facility] Sodium [Moles/volume] in Ser um or PlasmaOrdered By: Phyllis Shi on 09-08-2023 Sodium [Moles/Vol] 138 mmol/L 136-145 [facility] Urea nitrogen [Mass/volume] in Serum or PlasmaOrdered By: Phyllis Shi on 09-08-2023 Urea nitrogen [Mass/Vol] 17 mg/dL 7-25 [facility] WBC Auto (Bld) [#/Vol]Ordere d By: Phyllis Shi on 09-08-2023 WBC (Bld) [#/Vol] 12.0 10*3/uL 3.8-11.6 [facility] Alanine aminotransferase [En zymatic activity/volume] in Serum or PlasmaOrdered By: Sundeep Hutchison on 05-27-2023 ALT [Catalytic activity/Vol] 30 U/L 7-52 [facility] Albumin [Mass/volume] in Ser um or Plasma by Bromocresol green (BCG) dye binding methoOrdered By: Sundeep Hutchison on 05-27-2023 Albumin BCG dye [Mass/Vol] 4.5 g/dL 3.5-5.7 [facility] Alkaline phosphatase [Enzyma tic activity/volume] in Serum or PlasmaOrdered By: Sundeep Hutchison on 05-27-2023 ALP [Catalytic activity/Vol] 51 U/L 34-104 [facility] Aspartate aminotransferase [ Enzymatic activity/volume] in Serum or PlasmaOrdered By: Sundeep Hutchison on 05-27-2023 AST [Catalytic activity/Vol] 23 U/L 13-39 [facility] Basophils Auto (Bld) [#/Vol] Ordered By: Sundeep Hutchison on 05-27-2023 Basophils (Bld) [#/Vol] 0.1 10*3/uL 0.0-0.2 [facility] Basophils/100 WBC Auto (Bld) Ordered By: Sundeep Hutchison on 05-27-2023 Basophils/100 WBC (Bld) 0.9 % . F [facility] Bilirubin.total [Mass/volume ] in Serum or PlasmaOrdered By: Sundeep Hutchison on 05-27-2023 Bilirubin [Mass/Vol] 0.6 mg/dL 0.3-1.0 [facility] Calcium [Mass/volume] in Ser um or PlasmaOrdered By: Sundeep Hutchison on 05-27-2023 Calcium [Mass/Vol] 9.4 mg/dL 8.6-10.3 [facility] Carbon dioxide, total [Moles /volume] in Serum or PlasmaOrdered By: Sundeep Hutchison on 05-27-2023 CO2 [Moles/Vol] 23.5 mmol/L 21.0-31.0 [facility] Chloride [Moles/volume] in S ryanne or PlasmaOrdered By: Sundeep Hutchison on 05-27-2023 Chloride [Moles/Vol] 105 mmol/L 98-107 [facility] Complement C3on 05-27-2023 Complement C3 143 mg/dL Normal 82-167 [facility] Comment on above: Result Comment: Perf ormed at: CB - [facility] [address] [id number] Descriptive Catalog Librarian: Ayad Sanchez PhD, Phone: [phone] Performed By: #### B MP, A1C WTH eA, MG, CBC, TSH3 #### [facility] [address] [place] [id number] [facility] Complement C4on 05-27-2023 Complement C4 28 mg/dL Normal 12-38 [facility] Comment on above: Result Comment: PERF ORMED BY: [place] [address] PATHOLOGIST SECURITY STRATEGIST CELESTINE SALAZAR M.D. Performed By: #### B MP, A1C WTH eA, MG, CBC, TSH3 #### [place] [address] [place] Complement Total (CH50)on Complement Total (CH50) 60 Normal >41 [facility] Comment on above: Result Comment: Age Male Female 1 - 30 days Not Estab. Not Estab. 31 days - 6 months >32 >20 7 months - 17 years >39 >39 >17 years >41 >41 NOTE: The adult ( >17 years ) reference interval range is used to flag abnormals on this report. If the patient is 17 years old or younger, use the table above to determine out of range values. Performed at: [facility] [id number] Descriptive Catalog Librarian: Ayad Sanchez PhD, Phone: [phone] PERFORMED BY: [place] [address] PATHOLOGIST SECURITY STRATEGIST CELESTINE SALAZAR M.D. Performed By: #### B MP, A1C WTH eA, MG, CBC, TSH3 #### [place] [id number] [place] Complete Blood Count Auto Di ffon 05-27-2023 Basophils (Bld) [#/Vol] 0.1 10*3/uL Normal 0.0-0.2 [facility] Comment on above: Performed By: #### B MP, A1C WTH eA, MG, CBC, TSH3 #### [place] [address] [place] Basophils/100 WBC (Bld) 0.9 % Normal . T merari [facility] Comment on above: Performed By: #### B MP, A1C WTH eA, MG, CBC, TSH3 #### [place] [address] [place] Eosinophils (Bld) [#/Vol] 0.1 10*3/uL Normal 0.0-0.45 [facility] Comment on above: Performed By: #### B MP, A1C WTH eA, MG, CBC, TSH3 #### [address] Eosinophils/100 WBC (Bld) 0.7 % Normal . [facility] Comment on above: Performed By: #### B MP, A1C WTH eA, MG, CBC, TSH3 #### [address] Erythrocyte distribution width (RBC) [Ratio] 14.3 % Normal 11.9-15.3 [facility] Comment on above: Performed By: #### B MP, A1C WTH eA, MG, CBC, TSH3 #### [address] Hematocrit (Bld) [Volume fraction] 39.5 % Normal 34.0-46.4 [facility] Comment on above: Performed By: #### B MP, A1C WTH eA, MG, CBC, TSH3 #### [address] Hemoglobin (Bld) [Mass/Vol] 13.6 g/dL Normal 11.8-15.4 [facility] Comment on above: Performed By: #### B MP, A1C WTH eA, MG, CBC, TSH3 #### [address] Lymphocytes (Bld) [#/Vol] 2.4 10*3/uL Normal 1.00-4.8 [facility] Comment on above: Performed By: #### B MP, A1C WTH eA, MG, CBC, TSH3 #### [place] [address] [place] Lymphocytes/100 WBC (Bld) 29.1 % Normal . [facility] Comment on above: Performed By: #### B MP, A1C WTH eA, MG, CBC, TSH3 #### [address] MCH (RBC) [Entitic mass] 32.6 pg Normal 24.7-34.3 [facility] Comment on above: Performed By: #### B MP, A1C WTH eA, MG, CBC, TSH3 #### [address] MCV (RBC) [Entitic vol] 94.5 fL Normal 80-100 T [facility] Comment on above: Performed By: #### B MP, A1C WTH eA, MG, CBC, TSH3 #### [address] Mean Corpuscular HGB Conc 34.5 g/dL Normal 32.0-35.0 [facility] Comment on above: Performed By: #### B MP, A1C WTH eA, MG, CBC, TSH3 #### [address] Monocytes (Bld) [#/Vol] 0.4 10*3/uL Normal 0.0-0.8 [facility] Comment on above: Performed By: #### B MP, A1C WTH eA, MG, CBC, TSH3 #### [address] Monocytes/100 WBC (Bld) 4.9 % Normal . T [facility] Comment on above: Performed By: #### B MP, A1C WTH eA, MG, CBC, TSH3 #### [address] Neutrophils (Bld) [#/Vol] 5.3 10*3/uL Normal 1.8-7.7 [facility] Comment on above: Performed By: #### B MP, A1C WTH eA, MG, CBC, TSH3 #### [address] Neutrophils/100 WBC (Bld) 64.4 % Normal . [facility] Comment on above: Performed By: #### B MP, A1C WTH eA, MG, CBC, TSH3 #### [address] NRBC% 0.1 /100{WBC} Normal 0-0.5 [facility] Comment on above: Performed By: #### B MP, A1C WTH eA, MG, CBC, TSH3 #### [address] Platelet mean volume (Bld) [Entitic vol] 8.3 fL Normal 6.3-10.7 [facility] Comment on above: Performed By: #### B MP, A1C WTH eA, MG, CBC, TSH3 #### [address] Platelets (Bld) [#/Vol] 241 10*3/uL Normal 150-450 [facility] Comment on above: Performed By: #### B MP, A1C WTH eA, MG, CBC, TSH3 #### [address] RBC (Bld) [#/Vol] 4.17 10*6/uL Normal 3.60-5.00 [facility] Comment on above: Performed By: #### B MP, A1C WTH eA, MG, CBC, TSH3 #### [address] WBC (Bld) [#/Vol] 8.2 10*3/uL Normal 3.8-11.6 [facility] Comment on above: Performed By: #### B MP, A1C WTH eA, MG, CBC, TSH3 #### [address] Comprehensive Metabolic Pane [facility] 05-27-2023 Albumin [Mass/Vol] 4.5 g/dL Normal 3.5-5.7 [facility] Comment on above: Performed By: #### B MP, A1C WTH eA, MG, CBC, TSH3 #### [address] Albumin/Globulin [Mass ratio] 2.1 {ratio} Normal [facility] Comment on above: Performed By: #### B MP, A1C WTH eA, MG, CBC, TSH3 #### [address] ALP [Catalytic activity/Vol] 51 U/L Normal 34-104 [facility] Comment on above: Result Comment: PERF ORMED BY: [place] [address] PATHOLOGIST SECURITY STRATEGIST CELESTINE SALAZAR M.D. Performed By: #### B MP, A1C WTH eA, MG, CBC, TSH3 #### [address] ALT [Catalytic activity/Vol] 30 U/L Normal 7-52 [facility] Comment on above: Performed By: #### B MP, A1C WTH eA, MG, CBC, TSH3 #### [address] Anion gap [Moles/Vol] 11.9 mmol/L Normal 6.0-15.0 [facility] Comment on above: Performed By: #### B MP, A1C WTH eA, MG, CBC, TSH3 #### [address] AST [Catalytic activity/Vol] 23 U/L Normal 13-39 [facility] Comment on above: Performed By: #### B MP, A1C WTH eA, MG, CBC, TSH3 #### [address] Bilirubin [Mass/Vol] 0.6 mg/dL Normal 0.3-1.0 [facility] Comment on above: Performed By: #### B MP, A1C WTH eA, MG, CBC, TSH3 #### [address] Calcium [Mass/Vol] 9.4 mg/dL Normal 8.6-10.3 [facility] Comment on above: Performed By: #### B MP, A1C WTH eA, MG, CBC, TSH3 #### [address] Chloride [Moles/Vol] 105 mmol/L Normal 98-107 [facility] Comment on above: Performed By: #### B MP, A1C WTH eA, MG, CBC, TSH3 #### [address] CO2 [Moles/Vol] 23.5 mmol/L Normal 21.0-31.0 [facility] Comment on above: Performed By: #### B MP, A1C WTH eA, MG, CBC, TSH3 #### [address] Creatinine [Mass/Vol] 0.69 mg/dL Normal 0.60-1.20 [facility] Comment on above: Performed By: #### B MP, A1C WTH eA, MG, CBC, TSH3 #### [address] GFR/1.73 sq M.predicted MDRD (S/P/Bld) [Vol rate/Area] mL/min/{1.73_m2} Normal [facility] Comment on above: Performed By: #### B MP, A1C WTH eA, MG, CBC, TSH3 #### [address] Globulin (S) [Mass/Vol] 2.1 g/dL Normal T [facility] Comment on above: Performed By: #### B MP, A1C WTH eA, MG, CBC, TSH3 #### [address] Glucose [Mass/Vol] 85 mg/dL Normal 70-100 [facility] Comment on above: Result Comment: [place] Glucose Reference Range is dependent on time and content of last meal. Glucose of more than 200 mg/dL in a nonstressed, ambulatory subject supports the diagnosis of Diabetes Mellitus. ADA recommended reference range Performed By: #### B MP, A1C WTH eA, MG, CBC, TSH3 #### [address] Potassium [Moles/Vol] 4.4 mmol/L Normal 3.5-5.1 [facility] Comment on above: Performed By: #### B MP, A1C WTH eA, MG, CBC, TSH3 #### [facility] [address] Protein [Mass/Vol] 6.6 g/dL Normal 6.4-8.9 [facility] Comment on above: Performed By: #### B MP, A1C WTH eA, MG, CBC, TSH3 #### [address] Sodium [Moles/Vol] 136 mmol/L Normal 136-145 [facility] Comment on above: Performed By: #### B MP, A1C WTH eA, MG, CBC, TSH3 #### [facility] [address] Urea nitrogen [Mass/Vol] 15 mg/dL Normal 7-25 [facility] Comment on above: Performed By: #### B MP, A1C WTH eA, MG, CBC, TSH3 #### [address] Creatinine [Mass/volume] in Serum or PlasmaOrdered By: Sundeep Hutchison on 05-27-2023 Creatinine [Mass/Vol] 0.69 mg/dL 0.60-1.20 [facility] Eosinophils Auto (Bld) [#/Vo l]Ordered By: Sundeep Hutchison on 05-27-2023 Eosinophils (Bld) [#/Vol] 0.1 10*3/uL 0.0-0.45 [facility] Eosinophils/100 WBC Auto (Bl d)Ordered By: Sundeep Hutchison on 05-27-2023 Eosinophils/100 WBC (Bld) 0.7 % . [facility] Erythrocyte Sedimentation Ra lyndsey 05-27-2023 ESR (Bld) [Velocity] 7 mm/h Normal 0-19 [facility] Comment on above: Result Comment: PERF ORMED BY: [place] [address] PATHOLOGIST SECURITY STRATEGIST CELESTINE SALAZAR M.D. Performed By: #### B MP, A1C WTH eA, MG, CBC, TSH3 #### [address] Erythrocyte distribution wid th Auto (RBC) [Ratio]Ordered By: Sundeep Hutchison on 05-27-2023 Erythrocyte distribution width (RBC) [Ratio] 14.3 % 11.9-15.3 [facility] Erythrocyte sedimentation ra te by Photometric methodOrdered By: Sundeep Hutchison on 05-27-2023 ESR Photometric method (Bld) [Velocity] 7 mm/hr 0-19 [facility] Globulin Calc (S) [Mass/Vol] Ordered By: Sundeep Hutchison on 05-27-2023 Globulin (S) [Mass/Vol] 2.1 g/dL F [facility] Glucose [Mass/volume] in Ser um or PlasmaOrdered By: Sundeep Hutchison on 05-27-2023 Glucose [Mass/Vol] 85 mg/dL 70-100 [facility] Comment on above: ADA recommended refe rence rangeRandom Glucose Reference Range is dependent on time and content of last meal. Glucose of more than 200 mg/dL in a nonstressed, ambulatory subject supports the diagnosis of Diabetes Mellitus. Hematocrit Auto (Bld) [Volum e fraction]Ordered By: Sundeep Hutchison on 05-27-2023 Hematocrit (Bld) [Volume fraction] 39.5 % 34.0-46.4 [facility] Hemoglobin [Mass/volume] in BloodOrdered By: Sundeep Hutchison on 05-27-2023 Hemoglobin (Bld) [Mass/Vol] 13.6 g/dL 11.8-15.4 [facility] Leukocytes [#/volume] correc nanda for nucleated erythrocytes in Blood by Automated counOrdered By: Sundeep Hutchison on 05-27-2023 WBC corrected for nucl RBC Auto (Bld) [#/Vol] 8.2 10*3/uL 3.8-11.6 [facility] Lymphocytes Auto (Bld) [#/Vo l]Ordered By: Sundeep Hutchison on 05-27-2023 Lymphocytes (Bld) [#/Vol] 2.4 10*3/uL 1.00-4.8 [facility] Lymphocytes/100 WBC Auto (Bl d)Ordered By: Sundeep Hutchison on 05-27-2023 Lymphocytes/100 WBC (Bld) 29.1 % . [facility] MCH Auto (RBC) [Entitic mass ]Ordered By: Sundeep Hutchison on 05-27-2023 MCH (RBC) [Entitic mass] 32.6 pg 24.7-34.3 [facility] MCHC Auto (RBC) [Mass/Vol]Or dered By: Sundeep Hutchison on 05-27-2023 MCHC (RBC) [Mass/Vol] 34.5 g/dL 32.0-35.0 [facility] MCV Auto (RBC) [Entitic vol] Ordered By: Sundeep Hutchison on 05-27-2023 MCV (RBC) [Entitic vol] 94.5 fL 80-100 F [facility] Monocytes Auto (Bld) [#/Vol] Ordered By: Sundeep Hutchison on 05-27-2023 Monocytes (Bld) [#/Vol] 0.4 10*3/uL 0.0-0.8 [facility] Monocytes/100 WBC Auto (Bld) Ordered By: Sundeep Hutchison on 05-27-2023 Monocytes/100 WBC (Bld) 4.9 % . [facility] Neutrophils Auto (Bld) [#/Vo l]Ordered By: Sundeep Hutchison on 05-27-2023 Neutrophils (Bld) [#/Vol] 5.3 10*3/uL 1.8-7.7 [facility] Neutrophils/100 WBC Auto (Bl d)Ordered By: Sundeep Hutchison on 05-27-2023 Neutrophils/100 WBC (Bld) 64.4 % . [facility] No Panel InformationOrdered By: Sundeep Hutchison on 05-27-2023 Estimated GFR (CKD-EPI) > 60.0 mL/Min [facility] Creatinine Clearance (Chem N/A [facility] Nucleated erythrocytes [Pres ence] in Blood by Automated countOrdered By: Sundeep Hutchison on 05-27-2023 Nucleated RBC Auto Ql (Bld) 0.1 /100{WBC} 0-0.5 [facility] Platelet mean volume Auto (B ld) [Entitic vol]Ordered By: Sundeep Hutchison on 05-27-2023 Platelet mean volume (Bld) [Entitic vol] 8.3 fL 6.3-10.7 [facility] Platelets Auto (Bld) [#/Vol] Ordered By: Sundeep Hutchison on 05-27-2023 Platelets (Bld) [#/Vol] 241 10*3/uL 150-450 [facility] Potassium [Moles/volume] in Serum or PlasmaOrdered By: Sundeep Hutchison on 05-27-2023 Potassium [Moles/Vol] 4.4 mmol/L 3.5-5.1 [facility] Protein [Mass/volume] in Ser um or PlasmaOrdered By: Sundeep Hutchison on 05-27-2023 Protein [Mass/Vol] 6.6 g/dL 6.4-8.9 [facility] RBC Auto (Bld) [#/Vol]Ordere d By: Sundeep Hutchison on 05-27-2023 RBC (Bld) [#/Vol] 4.17 10*6/uL 3.60-5.00 [facility] Serum or plasma albumin/glob ulin mass ratioOrdered By: Sundeep Hutchison on 05-27-2023 Albumin/Globulin [Mass ratio] 2.1 {ratio} [facility] Serum or plasma anion gap de terminationOrdered By: Sundeep Hutchison on 05-27-2023 Anion gap [Moles/Vol] 11.9 mmol/L 6.0-15.0 [facility] Sodium [Moles/volume] in Ser um or PlasmaOrdered By: Sundeep Hutchison on 05-27-2023 Sodium [Moles/Vol] 136 mmol/L 136-145 [facility] Urea nitrogen [Mass/volume] in Serum or PlasmaOrdered By: Sundeep Hutchison on 05-27-2023 Urea nitrogen [Mass/Vol] 15 mg/dL 7-25 [facility] WBC Auto (Bld) [#/Vol]Ordere d By: Sundeep Hutchison on 05-27-2023 WBC (Bld) [#/Vol] 8.2 10*3/uL 3.8-11.6 [facility] Office Visit (Neuro-General) on 03-25-2023 Follow-up visit Patient Discussion/Summary Follow-up after neurocognitive testing completed. Diagnoses/Problems Assessed Memory changes (780.93) (R41.3) Brain fog (799.59) (R41.89) Orders Memory changes Adult Neuropsychology Referral Evaluation and Treatment Evaluate AND Treat Status: Hold For - Scheduling Requested for: [id number] Chief Complaint Memory changes Neurologic Evaluation. An interactive audio and video telecommunication system which permits real time communications between the patient (at the originating site) and provider (at the distant site) was utilized to provide this telehealth service. Verbal consent was requested and obtained from JOHANNA SHANNON on this date, 03/25/2023 01:00 PM , for a telehealth visit. History of Present Illness Patient being assessed today for initial evaluation of memory changes. Patient reports that in 2012 she experienced 4 TIAs within 3 months of each other. She most recently had another TIA 6 weeks ago. She started to experience memory changes in 2012 and over the past 3 years they have continued to be more noticeable. It is starting to affect her work production as well. She states that when she is in the middle of the conversation she will go blank and forget what she was even saying or talking about. She will frequently go to different parts of the house and not recall why. She feels like she has continuous brain fog. She was also recently diagnosed with lupus. Additionally has history of PTSD and trauma. Patient's mother does also have Alzheimer's so patient is trying to be proactive in anything that could be causing issues for herself. Would like to get neurocognitive testing completed. Follow-up after testing completed. 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) Chronic fatigue syndrome (780.71) (G93.32) Common migraine (346.10) (G43.009) Depression (311) (F32.A) Fibromyalgia (729.1) (M79.7) Headache, migraine, intractable (346.91) (G43.919) Seizure (780.39) (R56.9) Umbilical hernia (553.1) (K42.9) Past Medical History Problems History of Acquired deviated nasal septum (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) (J34.2) History of Cervical Cancer (V10.41) History of Chronic sinusitis (473.9) (J32.9) History of Nephrolithiasis (V13.01) History of Ovarian cyst (620.2) (N83.20) Surgical History Problems History of Abdominal liposuction had to have corective surgery after initial surgery History of Breast augmentation History of Hysterectomy had to have emergency surgey for water tunnels History of Kidney surgery stents History of Tonsillectomy History of Tubal ligation Family History Mother Family history of Migraine Headache Family history of Thyroid Disorder (V18.19) Family history of Transient Ischemic Attack Father Family history of Diabetes Mellitus (V18.0) Family History Family history of Attention-deficit Hyperactivity Disorder Family history of Cancer Family history of Heart Disease (V17.49) Family history of Hypertension (V17.49) Family history of Stroke Syndrome (V17.1) Social History Problems Being A Social Drinker Current every day smoker (305.1) (F17.200) Denied: History of Drug Use [employer] in high school Allergies Medication Darvocet-N 100 TABS Recorded By: Vangie Mcintosh; 04/01/2013 10:31:34 AM Vicodin TABS Recorded By: Vangie Mcintosh; 04/01/2013 10:31:34 AM Current Meds Medication NameInstruction ALPRAZolam 0.5 MG Oral TabletTAKE 1 TABLET DAILY NEEDED. BD Luer-Svitlana Syringe 23G X 1 3 ML busPIRone HCl - 15 MG Oral Tablet Cyanocobalamin 1000 MCG/ML Injection Solution Ketorolac Tromethamine 10 MG Oral Tablet PROzac 20 MG Oral CapsuleTAKE 1 CAPSULE Daily PROzac 40 MG Oral CapsuleTAKE 1 CAPSULE Daily traZODone HCl - 50 MG Oral TabletTAKE 1 TABLET AT BEDTIME Signatures Electronically signed by : Crys Swift APRN-JESICA; Mar 25 2023 1:29PM EST (Author) Normal [employer] Glucose Glucometer (BldC) [M ass/Vol]Ordered By: Janeth Scherer on 01-21-2023 Glucose [Mass/Vol] 102 mg/dL [facility] Comment on above: Random Glucose Refer ence Range is dependent on time and content of last meal. Glucose of more than 200 mg/dL in a nonstressed, ambulatory subject supports the diagnosis of Diabetes Mellitus. Glucose Poct Glucometerson 0 01-21-2023 Commemt1 Glu2: Cleaned Meter Normal [facility] Comment on above: Result Comment: PERF ORMED BY: [address] [place] [address] PATHOLOGIST SECURITY STRATEGIST CELESTINE SALAZAR M.D. Performed By: #### B MP, A1C WTH eA, MG, CBC, TSH3 #### [facility] [address] Glucose [Mass/Vol] 102 mg/dL Normal [facility] Comment on above: Result Comment: [place] om Glucose Reference Range is dependent on time and content of last meal. Glucose of more than 200 mg/dL in a nonstressed, ambulatory subject supports the diagnosis of Diabetes Mellitus. Performed By: #### B MP, A1C WTH eA, MG, CBC, TSH3 #### [facility] [address] Commemt1 Glu2: Cleaned Meter Normal [facility] Comment on above: Result Comment: PERF ORMED BY: [facility] [address] [facility] [place] [address] PATHOLOGIST SECURITY STRATEGIST CELESTINE SALAZAR M.D. Performed By: #### G LULS #### Point of Care testing , Glucose [Mass/Vol] 90 mg/dL Normal [facility] Comment on above: Result Comment: [facility] Glucose Reference Range is dependent on time and content of last meal. Glucose of more than 200 mg/dL in a nonstressed, ambulatory subject supports the diagnosis of Diabetes Mellitus. Performed By: #### G LULS #### Point of Care testing , No Panel InformationOrdered By: Janeth Scherer on 01-21-2023 Bedside Glucose Comment Glu2: cleaned meter [facility] A1C with Estimated Average G bryn 01-20-2023 Glucose [Mass/Vol] 111 mg/dL Normal [facility] Comment on above: Result Comment: PERF ORMED BY: [facility] [address] [facility] [place] [address] PATHOLOGIST SECURITY STRATEGIST CELESTINE SALAZAR M.D. Performed By: #### B MP, A1C WTH eA, MG, CBC, TSH3 #### [address] HbA1c (Bld) [Mass fraction] 5.5 % Normal 4.3-5.6 [facility] Comment on above: Result Comment: Incr eased risk for diabetes: 5.7 - 6.4 diabetes: >6.4 glycemic control for adults with diabetes: <7.0 Performed By: #### B MP, A1C WTH eA, MG, CBC, TSH3 #### [address] Basic Metabolic Panelon 053 -2022 Anion gap [Moles/Vol] 11.2 mmol/L Normal 6.0-15.0 e [facility] Comment on above: Performed By: #### B MP, A1C WTH eA, MG, CBC, TSH3 #### [address] Calcium [Mass/Vol] 8.7 mg/dL Normal 8.6-10.3 [facility] Comment on above: Performed By: #### B MP, A1C WTH eA, MG, CBC, TSH3 #### [address] Chloride [Moles/Vol] 107 mmol/L Normal 98-107 [facility] Comment on above: Performed By: #### B MP, A1C WTH eA, MG, CBC, TSH3 #### [address] CO2 [Moles/Vol] 26.3 mmol/L Normal 21.0-31.0 [facility] Comment on above: Performed By: #### B MP, A1C WTH eA, MG, CBC, TSH3 #### [address] Creatinine [Mass/Vol] 0.69 mg/dL Normal 0.60-1.20 [facility] Comment on above: Performed By: #### B MP, A1C WTH eA, MG, CBC, TSH3 #### [facility] [address] [place] [address] [place] Creatinine Clr Calc Pharmacy 123.92 Normal [facility] Comment on above: Performed By: #### B MP, A1C WTH eA, MG, CBC, TSH3 #### [facility] [address] [place] [address] [place] GFR/1.73 sq M.predicted MDRD (S/P/Bld) [Vol rate/Area] mL/min/{1.73_m2} Normal [facility] Comment on above: Performed By: #### B MP, A1C WTH eA, MG, CBC, TSH3 #### [facility] [address] [place] [address] [place] Glucose [Mass/Vol] 88 mg/dL Normal 70-100 [facility] Comment on above: Result Comment: [facility] Glucose Reference Range is dependent on time and content of last meal. Glucose of more than 200 mg/dL in a nonstressed, ambulatory subject supports the diagnosis of Diabetes Mellitus. ADA recommended reference range Performed By: #### B MP, A1C WTH eA, MG, CBC, TSH3 #### [facility] [address] [place] [address] [place] Potassium [Moles/Vol] 3.5 mmol/L Normal 3.5-5.1 [facility] Comment on above: Performed By: #### B MP, A1C WTH eA, MG, CBC, TSH3 #### [facility] [address] [place] [id number] [place] Sodium [Moles/Vol] 141 mmol/L Normal 136-145 [facility] Comment on above: Performed By: #### B MP, A1C WTH eA, MG, CBC, TSH3 #### [facility] [address] [place] [id number] [place] Urea nitrogen [Mass/Vol] 14 mg/dL Normal 7-25 [facility] Comment on above: Performed By: #### B MP, A1C WTH eA, MG, CBC, TSH3 #### [facility] [address] [place] [id number] [place] Basophils Auto (Bld) [#/Vol] Ordered By: Jaqui Peace on 01-20-2023 Basophils (Bld) [#/Vol] 0.1 10*3/uL 0.0-0.2 [facility] Basophils/100 WBC Auto (Bld) Ordered By: Jaqui Kobi on 01-20-2023 Basophils/100 WBC (Bld) 0.6 % . F [facility] CT angio headon 01-20-2023 CT angio head [facility] Main [place] [address] [place] [address] CT Scan Report Signed Patient: Johanna Shannon MR#: [id number] : 1975 Acct:[id number] Age/Sex: 47 / F ADM Date: 01/19/23 Loc: Room: [address] [place] [address] Type: ADM IN Attending Dr: Cole Flores DO Copies to: DO Robert Sifuentes DO Ordering Provider: Robert Dubois DO Date of Service: 01/19/23 CT/CT head stroke alert wo con: stroke ([id number]) CT/CT angio head: cva ([id number]) CT/CT angio neck: cva CLINICAL DATA: Unwitnessed seizure, headache, babbled speech. CT BRAIN WITHOUT CONTRAST - stroke alert: COMPARISON: 11/10/2005 TECHNIQUE: Contiguous axial unenhanced images were obtained through the brain. This CT exam was performed using one or more following dose reduction techniques: Automated exposure control, adjustment of the mA and/or kV according to patient size, or use of iterative reconstruction technique. FINDINGS: There is some artifact at the skull base related to body habitus and earrings. The ventricles are normal in size and position. There are no areas of abnormal attenuation. There is no hemorrhage, mass effect or extra-axial collections. The imaged paranasal sinuses are clear. CT/CT head stroke alert wo con IMPRESSION: NO ACUTE INTRACRANIAL ABNORMALITY. Comment: Preliminary findings were provided to Dr. Dubois at 2131 hours CTA OF HEAD AND NECK WITH CONTRAST COMPARISON: None Spiral images were obtained through the head and neck following 68 mL of Isovue-370. Sagittal and coronal MIP as well as 3-D volume rendered reconstructions of the carotid arteries and [place] were reviewed. Stenosis is evaluated using NASCET criteria. This CT exam was performed using one or more following dose reduction techniques: Automated exposure control, adjustment of the mA and/or kV according to patient size, or use of iterative reconstruction technique. A normal three-vessel arch is seen. There are patent, symmetric caliber vertebral arteries, without stenosis or dissection. There is no carotid artery plaque or stenosis. There are small shotty cervical lymph nodes. There are no contributory findings involving the upper imaged lungs. The distal vertebral, basilar and posterior cerebral arteries show no significant findings. There is origin of the posterior cerebral artery on the left. No carotid siphon plaque or stenosis is identified. There are patent anterior and middle cerebral arteries. No focal stenosis or suspected thrombosis is identified. No aneurysms are seen. IMPRESSION: NO SIGNIFICANT VASCULAR FINDINGS. Impression dictated by: Vangie Hanna M.D.01/20/2023 7:39 AM Dictation Location: [place] [address] Transcribed By: [facility] 01/20/23 0739 Dictated By: Vangie Hanna MD 01/20/23 0732 Signed By: 01/20/23 0739 Normal [facility] Calcium [Mass/volume] in Ser um or PlasmaOrdered By: Jaqui Peace on 01-20-2023 Calcium [Mass/Vol] 8.7 mg/dL 8.6-10.3 [facility] Carbon dioxide, total [Moles /volume] in Serum or PlasmaOrdered By: Jaqui Peace on 01-20-2023 CO2 [Moles/Vol] 26.3 mmol/L 21.0-31.0 [facility] Chloride [Moles/volume] in S ryanne or PlasmaOrdered By: Jaqui Peace on 01-20-2023 Chloride [Moles/Vol] 107 mmol/L 98-107 [facility] Complete Blood Count Auto Di ffon 01-20-2023 Basophils (Bld) [#/Vol] 0.1 10*3/uL Normal 0.0-0.2 [facility] Comment on above: Result Comment: PERF ORMED BY: [facility] [address] [place] [address] PATHOLOGIST SECURITY STRATEGIST CELESTINE SALAZAR M.D. Performed By: #### B MP, A1C WTH eA, MG, CBC, TSH3 #### [address] Basophils/100 WBC (Bld) 0.6 % Normal . Haresh gage [facility] Comment on above: Performed By: #### B MP, A1C WTH eA, MG, CBC, TSH3 #### [address] Eosinophils (Bld) [#/Vol] 0.1 10*3/uL Normal 0.0-0.45 [facility] Comment on above: Performed By: #### B MP, A1C WTH eA, MG, CBC, TSH3 #### [address] Eosinophils/100 WBC (Bld) 1.0 % Normal . [facility] Comment on above: Performed By: #### B MP, A1C WTH eA, MG, CBC, TSH3 #### [address] Erythrocyte distribution width (RBC) [Ratio] 13.8 % Normal 11.9-15.3 [facility] Comment on above: Performed By: #### B MP, A1C WTH eA, MG, CBC, TSH3 #### [address] Hematocrit (Bld) [Volume fraction] 40.3 % Normal 34.0-46.4 [facility] Comment on above: Performed By: #### B MP, A1C WTH eA, MG, CBC, TSH3 #### [address] Hemoglobin (Bld) [Mass/Vol] 13.7 g/dL Normal 11.8-15.4 [facility] Comment on above: Performed By: #### B MP, A1C WTH eA, MG, CBC, TSH3 #### [address] Lymphocytes (Bld) [#/Vol] 3.7 10*3/uL Normal 1.00-4.8 [facility] Comment on above: Performed By: #### B MP, A1C WTH eA, MG, CBC, TSH3 #### [address] Lymphocytes/100 WBC (Bld) 35.6 % Normal . [facility] Comment on above: Performed By: #### B MP, A1C WTH eA, MG, CBC, TSH3 #### [address] MCH (RBC) [Entitic mass] 31.4 pg Normal 24.7-34.3 [facility] Comment on above: Performed By: #### B MP, A1C WTH eA, MG, CBC, TSH3 #### [address] MCV (RBC) [Entitic vol] 91.9 fL Normal 80-100 [facility] Comment on above: Performed By: #### B MP, A1C WTH eA, MG, CBC, TSH3 #### [address] Mean Corpuscular HGB Conc 34.1 g/dL Normal 32.0-35.0 [facility] Comment on above: Performed By: #### B MP, A1C WTH eA, MG, CBC, TSH3 #### [address] Monocytes (Bld) [#/Vol] 0.5 10*3/uL Normal 0.0-0.8 [facility] Comment on above: Performed By: #### B MP, A1C WTH eA, MG, CBC, TSH3 #### [address] Monocytes/100 WBC (Bld) 5.0 % Normal . T [facility] Comment on above: Performed By: #### B MP, A1C WTH eA, MG, CBC, TSH3 #### [address] Neutrophils (Bld) [#/Vol] 5.9 10*3/uL Normal 1.8-7.7 [facility] Comment on above: Performed By: #### B MP, A1C WTH eA, MG, CBC, TSH3 #### [address] Neutrophils/100 WBC (Bld) 57.8 % Normal . [facility] Comment on above: Performed By: #### B MP, A1C WTH eA, MG, CBC, TSH3 #### [address] NRBC% 0.1 /100{WBC} Normal 0-0.5 [facility] Comment on above: Performed By: #### B MP, A1C WTH eA, MG, CBC, TSH3 #### [address] Platelet mean volume (Bld) [Entitic vol] 7.9 fL Normal 6.3-10.7 [facility] Comment on above: Performed By: #### B MP, A1C WTH eA, MG, CBC, TSH3 #### [address] Platelets (Bld) [#/Vol] 224 10*3/uL Normal 150-450 [facility] Comment on above: Performed By: #### B MP, A1C WTH eA, MG, CBC, TSH3 #### [address] RBC (Bld) [#/Vol] 4.38 10*6/uL Normal 3.60-5.00 [facility] Comment on above: Performed By: #### B MP, A1C WTH eA, MG, CBC, TSH3 #### [address] WBC (Bld) [#/Vol] 10.3 10*3/uL Normal 3.8-11.6 [facility] Comment on above: Performed By: #### B MP, A1C WTH eA, MG, CBC, TSH3 #### [address] Creatinine [Mass/volume] in Serum or PlasmaOrdered By: Jaqui Peace on 01-20-2023 Creatinine [Mass/Vol] 0.69 mg/dL 0.60-1.20 [facility] echo transthoracicon [facility] echo transthoracic [facility] Main [place] [address] [place] [id number] Echocardiogram Signed Patient: Johanna Shannon MR#: [id number] 611 : 1975 Acct:[id number] Age/Sex: 47 / F ADM Date: 01/19/23 Loc: Room: [address] [place] [address] Type: ADM IN Attending Dr: Janeth Scherer MD Ordering Provider: Jaqui Peace APRN Date of Service: 01/20/23 [facility] echo transthoracic: Source of Emboli, bubble study please Copies to: Fritz Bran MD, [facility] Jaqui Peace, CORE MACHINE TENDER BSA: 2.1 m2 BP: 133/88 mmHg HR: 75 Reason For Study: Source of Emboli, bubble study please History: TIA. Smoker. Interpretation Summary Mild concentric left ventricular hypertrophy. Ejection Fraction = 60-65%. Atrial septum appears to be intact and there is no evidence of flow across the atrial septum either by colorflow Doppler or by agitated saline. No thrombus, vegetation or mass is seen. There is no prior echocardiogram noted for this patient. Procedure/Quality: A two-dimensional transthoracic echocardiogram with color flow, Doppler and injection of aggitated saline was performed. A two- dimensional transthoracic echocardiogram with color flow, Doppler and injection of contrast agent Definity was performed. There is no prior echocardiogram noted for this patient. Left Ventricle: Mild concentric left ventricular hypertrophy. Left ventricular systolic function is normal. Ejection Fraction = 60-65%. Left Atrium: The left atrium appears normal in size. The atrial septum appears normal. Atrial septum appears to be intact and there is no evidence of flow across the atrial septum either by colorflow Doppler or by agitated saline. Right Atrium: The right atrium appears normal in size. Right Ventricle: The right ventricular size, thickness and function are normal. Aortic Valve: The aortic valve is normal in structure and function. Mitral Valve: The mitral valve is normal in structure and function. Tricuspid Valve: The tricuspid valve is normal in structure and function. Pulmonic Valve: The pulmonic valve is not well seen, but is grossly normal. Arteries: The aortic root is normal size. Pericardium/Pleura: No pericardial effusion seen. There is no pleural effusion. IVC/Hepatic Viens: The IVC is normal in size with an inspiratory collapse of greater then 50%, suggesting normal right atrial pressure. Miscellaneous: No thrombus, vegetation or mass is seen. Measurements with Normals IVSd: 1.2 cm (0.7-1.1 cm)LVIDd: 4.5 cm (3.7-5.4 cm) LVPWd: 1.3 cm (0.7-1.1 cm)LVIDs: 3.1 cm (2.3-3.6 cm) LA dimension: 3.9 cm (2.3-4.0 cm)Ao root diam: 3.1 cm(2.0-3.6 cm) asc Aorta Diam: 3.3 cm(2.1-3.4cm) Doppler with Normals LV V1 max: 104.0 cm/sec (0.7-1.7m/s)MV E max matteo: 86.5 cm/sec(0.8-1.3m/s) MV A max matteo: 60.4 cm/sec(0.0-0.0m/s) MV E/A: 1.4 (<1.5) MMode/2D Measurements Calculations TAPSE: 2.4 cm FS: 31.1 % Ao root area: LVOT diam: 2.1 cm RV S Matteo: EDV(Teich): 7.5 cm2 LVOT area: 3.5 cm2 10.8 cm/sec 92.4 ml ESV(Teich): 37.9 ml EF(Teich): 59.0 % __ LVLd ap4: 8.9 cm SV(MOD-sp4): LAV(MOD-sp4): LA A2 area: 16.8 cm2 EDV(MOD-sp4): 85.5 ml 34.7 ml 124.0 ml LAV(MOD-sp2): LA A4 area: 15.0 cm2 LVLs ap4: 7.0 cm 43.1 ml LA length (vol): ESV(MOD-sp4): 5.2 cm 38.5 ml LA vol: 41.2 ml EF(MOD-sp4): 69.0 % LA vol index: 19.7 ml/m2 Doppler Measurements Calculations MV dec time: E/E' lat: 6.0 MV dec slope: Ao V2 max: 0.21 sec E/E' med: 9.5 122.0 cm/sec 412.0 cm/sec2 Ao max P.0 mmHg Ao mean P.0 mmHg Ao V2 mean: 97.4 cm/sec Ao V2 VTI: 26.5 cm ALTAGRACIA(I,D): 2.5 cm2 ALTAGRACIA(V,D): 3.0 cm2 __ LV V1 max PG: RAP systole: 4.3 mmHg 3.0 mmHg LV V1 mean P.0 mmHg LV V1 mean: 73.8 cm/sec LV V1 VTI: 19.1 cm ___ Transcribed By: SCV Performed At: 01/20/23 1247 Signed By: Fritz Bran MD, [facility] 01/20/23 1348 Normal [facility] Eosinophils Auto (Bld) [#/Vo l]Ordered By: Jaqui Peace on 01-20-2023 Eosinophils (Bld) [#/Vol] 0.1 10*3/uL 0.0-0.45 [facility] Eosinophils/100 WBC Auto (Bl d)Ordered By: Jaqui Peace on 01-20-2023 Eosinophils/100 WBC (Bld) 1.0 % . [facility] Erythrocyte Sedimentation Ra lyndsey 01-20-2023 ESR (Bld) [Velocity] 5 mm/h Normal 0-19 [facility] Comment on above: Result Comment: PERF ORMED BY: [facility] [address] [place] [address] PATHOLOGIST SECURITY STRATEGIST CELESTINE SALAZAR M.D. Performed By: #### B MP, A1C WTH eA, MG, CBC, TSH3 #### [facility] [address] Erythrocyte distribution wid th Auto (RBC) [Ratio]Ordered By: Jaqui Peace on 01-20-2023 Erythrocyte distribution width (RBC) [Ratio] 13.8 % 11.9-15.3 [facility] Erythrocyte sedimentation ra te by Photometric methodOrdered By: Janeth Scherer on 01-20-2023 ESR Photometric method (Bld) [Velocity] 5 mm/hr 0-19 [facility] Folate [Mass/volume] in Seru m or PlasmaOrdered By: Janeth Scherer on 01-20-2023 Folate [Mass/Vol] 17.5 ng/mL >5.9 [facility] Comment on above: Folate reference ran ge: >5.9 ng/mlThe WHO technical consultation on folate and vitamin [id number] has determined that folate concentrations lessthan 4 ng/ml are considered deficient. Glucose Poct Glucometerson 0 01-20-2023 Commemt1 Glu2: Cleaned Meter Normal [facility] Comment on above: Result Comment: PERF ORMED BY: [place] [address] PATHOLOGIST SECURITY STRATEGIST CELESTINE SALAZAR M.D. Performed By: #### B MP, A1C WTH eA, MG, CBC, TSH3 #### [facility] [address] [place] [id number] [facility] Glucose [Mass/Vol] 154 mg/dL Normal [facility] Comment on above: Result Comment: [place] Glucose Reference Range is dependent on time and content of last meal. Glucose of more than 200 mg/dL in a nonstressed, ambulatory subject supports the diagnosis of Diabetes Mellitus. Performed By: #### B MP, A1C WTH eA, MG, CBC, TSH3 #### [facility] [address] Commemt1 Glu2: Cleaned Meter Normal [facility] Comment on above: Result Comment: PERF ORMED BY: [facility] [address] [place] [address] PATHOLOGIST SECURITY STRATEGIST CELESTINE SALAZAR M.D. Performed By: #### B MP, A1C WTH eA, MG, CBC, TSH3 #### [facility] [address] Glucose [Mass/Vol] 164 mg/dL Normal [facility] Comment on above: Result Comment: [place] om Glucose Reference Range is dependent on time and content of last meal. Glucose of more than 200 mg/dL in a nonstressed, ambulatory subject supports the diagnosis of Diabetes Mellitus. Performed By: #### B MP, A1C WTH eA, MG, CBC, TSH3 #### [facility] [address] Glucose [Mass/Vol] 123 mg/dL Normal [facility] Comment on above: Result Comment: [place] om Glucose Reference Range is dependent on time and content of last meal. Glucose of more than 200 mg/dL in a nonstressed, ambulatory subject supports the diagnosis of Diabetes Mellitus. PERFORMED BY: [place] [address] PATHOLOGIST SECURITY STRATEGIST CELESTINE SALAZAR M.D. Performed By: #### B MP, A1C WTH eA, MG, CBC, TSH3 #### [facility] [address] Glucose [Mass/volume] in Ser um or PlasmaOrdered By: Jaqui Peace on 01-20-2023 Glucose [Mass/Vol] 88 mg/dL 70-100 [facility] Comment on above: ADA recommended refe rence rangeRandom Glucose Reference Range is dependent on time and content of last meal. Glucose of more than 200 mg/dL in a nonstressed, ambulatory subject supports the diagnosis of Diabetes Mellitus. Glucose mean value [Mass/vol ume] in Blood Estimated from glycated hemoglobinOrdered By: Jaqui Peace on 01-20-2023 Average glucose Estimated from glycated hemoglobin (Bld) [Mass/Vol] 111 mg/dL [facility] Hematocrit Auto (Bld) [Volum e fraction]Ordered By: Jaqui Peace on 01-20-2023 Hematocrit (Bld) [Volume fraction] 40.3 % 34.0-46.4 [facility] Hemoglobin A1c percentageOrd ered By: Jaqui Peace on 01-20-2023 HbA1c (Bld) [Mass fraction] 5.5 % 4.3-5.6 [facility] Comment on above: Increased risk for d iabetes: 5.7 - 6.4diabetes: >6.4glycemic control for adults with diabetes: <7.0 Hemoglobin [Mass/volume] in BloodOrdered By: Jaqui Peace on 01-20-2023 Hemoglobin (Bld) [Mass/Vol] 13.7 g/dL 11.8-15.4 [facility] Leukocytes [#/volume] correc nanda for nucleated erythrocytes in Blood by Automated counOrdered By: Jaqui Peace on 01-20-2023 WBC corrected for nucl RBC Auto (Bld) [#/Vol] 10.3 10*3/uL 3.8-11.6 [facility] Lymphocytes Auto (Bld) [#/Vo l]Ordered By: Jaqui Peace on 01-20-2023 Lymphocytes (Bld) [#/Vol] 3.7 10*3/uL 1.00-4.8 [facility] Lymphocytes/100 WBC Auto (Bl d)Ordered By: Jaqui Peace on 01-20-2023 Lymphocytes/100 WBC (Bld) 35.6 % . [facility] MCH Auto (RBC) [Entitic mass ]Ordered By: Jaqui Peace on 01-20-2023 MCH (RBC) [Entitic mass] 31.4 pg 24.7-34.3 [facility] MCHC Auto (RBC) [Mass/Vol]Or dered By: Jaqui Peace on 01-20-2023 MCHC (RBC) [Mass/Vol] 34.1 g/dL 32.0-35.0 [facility] MCV Auto (RBC) [Entitic vol] Ordered By: Jaqui Peace on 01-20-2023 MCV (RBC) [Entitic vol] 91.9 fL 80-100 F [facility] MR head/brain wo simonon 01-20 MR head/brain wo con [facility] [place] [address] MRI Report Signed Patient: Johanna Shannon MR#: [id number] 611 : 1975 Acct:[id number] Age/Sex: 47 / F ADM Date: 01/19/23 Loc: 4N Room: [address] [place] [address] Type: ADM IN Attending Dr: Janeth Scherer MD Copies to: EVE Vo MD Ordering Provider: Jaqui Peace APRN Date of Service: 01/20/23 MR/MR head/brain wo con: tia r/o CVA MRI the Brain without contrast TECHNIQUE: Multiplanar T1 and T2-weighted imaging of the brain. HISTORY: Slurred speech. Weakness in the RIGHT upper and lower extremities. History of multiple transient ischemic attacks. COMPARISON chest CT 01/19/23: none VENTRICLES: Unremarkable BRAIN VOLUME: Adequate volume of brain parenchyma identified. BRAIN PARENCHYMAL SIGNAL INTENSITY: Normal signal intensity of the brain parenchyma identified. BLEED: None MASS EFFECT: No mass effect DIFFUSION RESTRICTION: None GRADIENT ECHO PARENCHYMAL SIGNAL LOSS: None MIDBRAIN: The midbrain structures are unremarkable. KARELY: Unremarkable MEDULLA: Unremarkable INTERNAL AUDITORY CANALS: Unremarkable SINUSES: Unremarkable ORBITS: Grossly unremarkable MASTOIDS: Unremarkable ENHANCEMENT: No contrast enhancement given MR/MR head/brain wo con IMPRESSION: No acute intracranial process. Impression dictated by: Casimiro Cain M.D.01/20/2023 12:07 PM Dictation Location: [place] [address] Transcribed By: [facility] 01/20/23 1207 Dictated By: Casimiro Cain DO 01/20/23 1158 Signed By: 01/20/23 1207 Normal [facility] Magnesiumon 01-20-2023 Magnesium [Mass/Vol] 1.9 mg/dL Normal 1.9-2.7 [facility] Comment on above: Performed By: #### B MP, A1C WTH eA, MG, CBC, TSH3 #### [address] Magnesium [Mass/Vol] 1.7 mg/dL Low 1.9-2.7 [facility] Comment on above: Order Comment: Comme nt please add on Result Comment: PERF ORMED BY: [place] [address] PATHOLOGIST SECURITY STRATEGIST CELESTINE SALAZAR M.D. Performed By: #### M G #### [facility] [address] Magnesium [Mass/volume] in S ryanne or PlasmaOrdered By: Jaqui Peace on 01-20-2023 Magnesium [Mass/Vol] 1.9 mg/dL 1.9-2.7 [facility] Monocytes Auto (Bld) [#/Vol] Ordered By: Jaqui Peace on 01-20-2023 Monocytes (Bld) [#/Vol] 0.5 10*3/uL 0.0-0.8 [facility] Monocytes/100 WBC Auto (Bld) Ordered By: Jaqui Peace on 01-20-2023 Monocytes/100 WBC (Bld) 5.0 % . [facility] Neutrophils Auto (Bld) [#/Vo l]Ordered By: Jaqui Peace on 01-20-2023 Neutrophils (Bld) [#/Vol] 5.9 10*3/uL 1.8-7.7 [facility] Neutrophils/100 WBC Auto (Bl d)Ordered By: Jaqui Peace on 01-20-2023 Neutrophils/100 WBC (Bld) 57.8 % . [facility] No Panel InformationOrdered By: Jaqui Peace on 01-20-2023 Estimated GFR (CKD-EPI) > 60.0 mL/Min [facility] Creatinine Clearance (Chem 123.92 [facility] Nucleated erythrocytes [Pres ence] in Blood by Automated countOrdered By: Jaqui Peace on 01-20-2023 Nucleated RBC Auto Ql (Bld) 0.1 /100{WBC} 0-0.5 [facility] Platelet mean volume Auto (B ld) [Entitic vol]Ordered By: Jaqui Peace on 01-20-2023 Platelet mean volume (Bld) [Entitic vol] 7.9 fL 6.3-10.7 [facility] Platelets Auto (Bld) [#/Vol] Ordered By: Jaqui Peace on 01-20-2023 Platelets (Bld) [#/Vol] 224 10*3/uL 150-450 [facility] Potassium [Moles/volume] in Serum or PlasmaOrdered By: Jaqui Peace on 01-20-2023 Potassium [Moles/Vol] 3.5 mmol/L 3.5-5.1 [facility] RBC Auto (Bld) [#/Vol]Ordere d By: Jaqui Peace on 01-20-2023 RBC (Bld) [#/Vol] 4.38 10*6/uL 3.60-5.00 [facility] Serum or plasma anion gap de terminationOrdered By: Jaqui Peace on 01-20-2023 Anion gap [Moles/Vol] 11.2 mmol/L 6.0-15.0 [facility] Sodium [Moles/volume] in Ser um or PlasmaOrdered By: Jaqui Peace on 01-20-2023 Sodium [Moles/Vol] 141 mmol/L 136-145 [facility] Thyroid Stimulating Hormoneo n 01-20-2023 TSH Qn 0.86 m[IU]/L Normal 0.45-5.33 [facility] Comment on above: Result Comment: PERF ORMED BY: [facility] [address] [place] [address] PATHOLOGIST SECURITY STRATEGIST CELESTINE SALAZAR M.D. Performed By: #### B MP, A1C WTH eA, MG, CBC, TSH3 #### [facility] [address] Thyrotropin [Units/volume] i n Serum or PlasmaOrdered By: Jaqui Peace on 01-20-2023 TSH Qn 0.86 m[IU]/L 0.45-5.33 [facility] Urea nitrogen [Mass/volume] in Serum or PlasmaOrdered By: Jaqui Peace on 01-20-2023 Urea nitrogen [Mass/Vol] 14 mg/dL 7-25 [facility] Vit. B12/Folate Profileon Cobalamin (Vitamin B12) [Mass/Vol] 330 pg/mL Normal 180-914 [facility] Comment on above: Performed By: #### B MP, A1C WTH eA, MG, CBC, TSH3 #### [facility] [address] Folate 17.5 ng/mL Normal >5.9 [facility] Comment on above: Result Comment: Graciela te reference range: >5.9 ng/ml The WHO technical consultation on folate and vitamin b12 deficiencies has determined that folate concentrations less than 4 ng/ml are considered deficient. PERFORMED BY: [facility] [address] [place] [address] PATHOLOGIST SECURITY STRATEGIST CELESTINE SALAZAR M.D. Performed By: #### B MP, A1C WTH eA, MG, CBC, TSH3 #### [facility] [address] Vitamin B12 ser/plasOrdered By: Janeth Scherer on 01-20-2023 Cobalamin (Vitamin B12) [Mass/Vol] 330 pg/mL 180-914 [facility] WBC Auto (Bld) [#/Vol]Ordere d By: Jaqui Peace on 01-20-2023 WBC (Bld) [#/Vol] 10.3 10*3/uL 3.8-11.6 [facility] Activated partial thrombopla stin time (aPTT) in platelet poor plasma by coagulation aOrdered By: Robert Dubois on 01-19-2023 aPTT Coag (PPP) [Time] 33.9 s 25.1-36.5 [facility] Alanine aminotransferase [En zymatic activity/volume] in Serum or PlasmaOrdered By: Robert Dubois on 01-19-2023 ALT [Catalytic activity/Vol] 18 U/L Normal 7-52 [facility] Comment on above: Performed By: #### G LULS #### Point of Care testing , Albumin [Mass/volume] in Ser um or Plasma by Bromocresol green (BCG) dye binding methoOrdered By: Robert Dubois on 01-19-2023 Albumin BCG dye [Mass/Vol] 4.2 g/dL 3.5-5.7 [facility] Alkaline phosphatase [Enzyma tic activity/volume] in Serum or PlasmaOrdered By: Robert Dubois on 01-19-2023 ALP [Catalytic activity/Vol] 60 U/L Normal 34-104 [facility] Comment on above: Performed By: #### G LULS #### Point of Care testing , Aspartate aminotransferase [ Enzymatic activity/volume] in Serum or PlasmaOrdered By: Robert Dubois on 01-19-2023 AST [Catalytic activity/Vol] 13 U/L Normal 13-39 [facility] Comment on above: Performed By: #### G ARMANI #### Point of Care testing , Automated basophil %Ordered By: Robert Dubois on 01-19-2023 Basophils/100 WBC (Bld) 0.8 % Normal . [facility] Comment on above: Performed By: #### C BC, PRL, HS TROP, CK, PTT, CMP, PT #### [address] Automated basophil countOrde red By: Robert Duobis on 01-19-2023 Basophils (Bld) [#/Vol] 0.1 10*3/uL Normal 0.0-0.2 [facility] Comment on above: Result Comment: PERF ORMED BY: [address] [place] [address] PATHOLOGIST SECURITY STRATEGIST CELESTINE SALAZAR M.D. Performed By: #### C BC, PRL, HS TROP, CK, PTT, CMP, PT #### [address] Automated blood monocyte cou ntOrdered By: Robert Dubois on 01-19-2023 Monocytes (Bld) [#/Vol] 0.5 10*3/uL Normal 0.0-0.8 [facility] Comment on above: Performed By: #### C BC, PRL, HS TROP, CK, PTT, CMP, PT #### [address] Automated eosinophil %Ordere d By: Robert Dubois on 01-19-2023 Eosinophils/100 WBC (Bld) 0.7 % Normal . [facility] Comment on above: Performed By: #### C BC, PRL, HS TROP, CK, PTT, CMP, PT #### [address] Automated eosinophil countOr dered By: Robert Dubois on 01-19-2023 Eosinophils (Bld) [#/Vol] 0.1 10*3/uL Normal 0.0-0.45 [facility] Comment on above: Performed By: #### C BC, PRL, HS TROP, CK, PTT, CMP, PT #### [facility] [address] Automated monocyte %Ordered By: Robert Dubois on 01-19-2023 Monocytes/100 WBC (Bld) 4.6 % Normal . [facility] Comment on above: Performed By: #### C BC, PRL, HS TROP, CK, PTT, CMP, PT #### [facility] [address] Automated neutrophil %Ordere d By: Robert Dubois on 01-19-2023 Neutrophils/100 WBC (Bld) 61.4 % Normal . [facility] Comment on above: Performed By: #### C BC, PRL, HS TROP, CK, PTT, CMP, PT #### [facility] [address] Bilirubin.total [Mass/volume ] in Serum or PlasmaOrdered By: Robert Dubois on 01-19-2023 Bilirubin [Mass/Vol] 0.5 mg/dL Normal 0.3-1.0 [facility] Comment on above: Performed By: #### G LULS #### Point of Care testing , Calcium [Mass/volume] in Ser um or PlasmaOrdered By: Robert Dubois on 01-19-2023 Calcium [Mass/Vol] 9.2 mg/dL Normal 8.6-10.3 [facility] Comment on above: Performed By: #### G LULS #### Point of Care testing , Carbon dioxide, total [Moles /volume] in Serum or PlasmaOrdered By: Robert Dubois on 01-19-2023 CO2 [Moles/Vol] 24.9 mmol/L Normal 21.0-31.0 [facility] Comment on above: Performed By: #### G LULS #### Point of Care testing , Chloride [Moles/volume] in S ryanne or PlasmaOrdered By: Robert Dubois on 01-19-2023 Chloride [Moles/Vol] 107 mmol/L Normal 98-107 [facility] Comment on above: Performed By: #### G LULS #### Point of Care testing , Complete Blood Count Auto Di ffon 01-19-2023 Mean Corpuscular HGB Conc 34.5 g/dL Normal 32.0-35.0 [facility] Comment on above: Performed By: #### C BC, PRL, HS TROP, CK, PTT, CMP, PT #### [facility] [address] Monocytes/100 WBC (Bld) 20.61 % High 0.00-20.00 [facility] Comment on above: Result Comment: For adults in ED, MDW > 20.0 may be associated with a higher risk of sepsis during the first 12 hrs of hospital admission Performed By: #### C BC, PRL, HS TROP, CK, PTT, CMP, PT #### [facility] [address] NRBC% 0.1 /100{WBC} Normal 0-0.5 [facility] Comment on above: Performed By: #### C BC, PRL, HS TROP, CK, PTT, CMP, PT #### [facility] [address] [place] [address] Comprehensive Metabolic Pane dustin 01-19-2023 Albumin [Mass/Vol] 4.2 g/dL Normal 3.5-5.7 [facility] Comment on above: Performed By: #### G LULS #### Point of Care testing , Creatinine Clr Calc Pharmacy 109.71 Normal [facility] Comment on above: Performed By: #### G LULS #### Point of Care testing , GFR/1.73 sq M.predicted MDRD (S/P/Bld) [Vol rate/Area] mL/min/{1.73_m2} Normal [facility] Comment on above: Performed By: #### G LULS #### Point of Care testing , Creatine kinase [Enzymatic a ctivity/volume] in Serum or PlasmaOrdered By: Robert Dubois on 01-19-2023 CK [Catalytic activity/Vol] 72 U/L Normal 30-223 [facility] Comment on above: Performed By: #### G ARMANI #### Point of Care testing , Creatinine [Mass/volume] in Serum or PlasmaOrdered By: Robert Dubois on 01-19-2023 Creatinine [Mass/Vol] 0.79 mg/dL Normal 0.60-1.20 [facility] Comment on above: Performed By: #### G ARMANI #### Point of Care testing , ECG 12 lead ECGon 01-19-2023 ECG 12 lead ECG [facility] Main [place] [address] [place], [place] [id number] Electrocardiograph Report Signed Patient: Johanna Shannon MR#: [id number] : 1975 Acct:[id number] Age/Sex: 47 / F ADM Date: 01/19/23 Loc: Room: [address] [place] [address] Type: ADM IN Attending Dr: Cole Flores DO Ordering Provider: Robert Dubois DO Date of Service: 01/19/23 ECG/ECG 12 lead ECG: tia Copies to: Test Reason : Blood Pressure : 179/081 mmHG Vent. Rate : 069 BPM Atrial Rate : 069 BPM P-R Int : 154 ms QRS Dur : 086 ms QT Int : 420 ms P-R-T Axes : 043 055 059 degrees QTc Int : 450 ms Normal sinus rhythm Low voltage QRS Borderline ECG No previous ECGs available Confirmed by ROBERT DUBOIS DO ([id number]) on 01/20/2023 5:47:05 AM Referred By: Electronically Signed By:ROBERT DUBOIS DO Transcribed By: MUS Signed By Robert Dubois DO [id number] Normal [facility] Erythrocyte distribution wid th [Ratio] by Automated countOrdered By: Robert Dubois on 01-19-2023 Erythrocyte distribution width (RBC) [Ratio] 13.8 % Normal 11.9-15.3 [facility] Comment on above: Performed By: #### C BC, PRL, HS TROP, CK, PTT, CMP, PT #### [facility] [address] [place] [address] [place] Erythrocytes [#/volume] in B lood by Automated countOrdered By: Robert Dubois on 01-19-2023 RBC (Bld) [#/Vol] 4.81 10*6/uL Normal 3.60-5.00 [facility] Comment on above: Performed By: #### C BC, PRL, HS TROP, CK, PTT, CMP, PT #### [facility] [address] [place] [address] Glucose Poct Glucometerson 0 01-19-2023 Glucose [Mass/Vol] 81 mg/dL Normal [facility] Comment on above: Result Comment: [place] om Glucose Reference Range is dependent on time and content of last meal. Glucose of more than 200 mg/dL in a nonstressed, ambulatory subject supports the diagnosis of Diabetes Mellitus. PERFORMED BY: [place] [address] PATHOLOGIST SECURITY STRATEGIST CELESTINE SALAZAR M.D. Performed By: #### G LULS #### Point of Care testing , Glucose [Mass/volume] in Ser um or PlasmaOrdered By: Robert Dubois on 01-19-2023 Glucose [Mass/Vol] 79 mg/dL Normal 70-100 [facility] Comment on above: ADA recommended refe rence rangeRandom Glucose Reference Range is dependent on time and content of last meal. Glucose of more than 200 mg/dL in a nonstressed, ambulatory subject supports the diagnosis of Diabetes Mellitus. Result Comment: [place] om Glucose Reference Range is dependent on time and content of last meal. Glucose of more than 200 mg/dL in a nonstressed, ambulatory subject supports the diagnosis of Diabetes Mellitus. ADA recommended reference range Performed By: #### G LULS #### Point of Care testing , Hematocrit [Volume Fraction] of Blood by Automated countOrdered By: Robert Dubois on 01-19-2023 Hematocrit (Bld) [Volume fraction] 44.0 % Normal 34.0-46.4 [facility] Comment on above: Performed By: #### C BC, PRL, HS TROP, CK, PTT, CMP, PT #### [facility] [address] Hemoglobin [Mass/volume] in BloodOrdered By: Robert Dubois on 01-19-2023 Hemoglobin (Bld) [Mass/Vol] 15.2 g/dL Normal 11.8-15.4 [facility] Comment on above: Performed By: #### C BC, PRL, HS TROP, CK, PTT, CMP, PT #### [facility] [address] Leukocytes [#/volume] correc nanda for nucleated erythrocytes in Blood by Automated counOrdered By: Robert Dubois on 01-19-2023 WBC corrected for nucl RBC Auto (Bld) [#/Vol] 11.2 10*3/uL 3.8-11.6 [facility] Leukocytes [#/volume] in Blo od by Automated countOrdered By: Robert Dubois on 01-19-2023 WBC (Bld) [#/Vol] 11.2 10*3/uL Normal 3.8-11.6 [facility] Comment on above: Performed By: #### C BC, PRL, HS TROP, CK, PTT, CMP, PT #### [place] [address] [place] Lymphocytes [#/volume] in Bl ood by Automated countOrdered By: Robert Dubois on 01-19-2023 Lymphocytes (Bld) [#/Vol] 3.7 10*3/uL Normal 1.00-4.8 [facility] Comment on above: Performed By: #### C BC, PRL, HS TROP, CK, PTT, CMP, PT #### [place] [address] [place] Lymphocytes/100 leukocytes i n Blood by Automated countOrdered By: Robert Dubois on 01-19-2023 Lymphocytes/100 WBC (Bld) 32.5 % Normal . [facility] Comment on above: Performed By: #### C BC, PRL, HS TROP, CK, PTT, CMP, PT #### [address] MCH [Entitic mass] by Automa nanda countOrdered By: Robert Dubois on 01-19-2023 MCH (RBC) [Entitic mass] 31.6 pg Normal 24.7-34.3 [facility] Comment on above: Performed By: #### C BC, PRL, HS TROP, CK, PTT, CMP, PT #### [facility] [address] MCHC Auto (RBC) [Mass/Vol]Or dered By: Robert Dubois on 01-19-2023 MCHC (RBC) [Mass/Vol] 34.5 g/dL 32.0-35.0 [facility] MCV [Entitic volume] by Auto mated countOrdered By: Robert Dubois on 01-19-2023 MCV (RBC) [Entitic vol] 91.6 fL Normal 80-100 [facility] Comment on above: Performed By: #### C BC, PRL, HS TROP, CK, PTT, CMP, PT #### [facility] [address] Monocyte distribution width [Entitic volume] in Blood by AutomatedOrdered By: Robert Dubois on 01-19-2023 Monocyte distribution width Auto (Bld) [Entitic vol] 20.61 % 0.00-20.00 [facility] Comment on above: For adults in ED, MD W > 20.0 may be associated with a higher risk of sepsis during the first 12 hrs of hospital admission Neutrophils [#/volume] in Bl ood by Automated countOrdered By: Robert Dubois on 01-19-2023 Neutrophils (Bld) [#/Vol] 6.9 10*3/uL Normal 1.8-7.7 [facility] Comment on above: Performed By: #### C BC, PRL, HS TROP, CK, PTT, CMP, PT #### [facility] [address] No Panel InformationOrdered By: Robert Dubois on 01-19-2023 Estimated GFR (CKD-EPI) > 60.0 mL/Min [facility] Creatinine Clearance (Chem 109.71 [facility] Nucleated erythrocytes [Pres ence] in Blood by Automated countOrdered By: Robert Dubois on 01-19-2023 Nucleated RBC Auto Ql (Bld) 0.1 /100{WBC} 0-0.5 [facility] Partial Thromboplastin Timeo n 01-19-2023 aPTT Coag (Bld) [Time] 33.9 s Normal 25.1-36.5 [facility] Comment on above: Result Comment: PERF ORMED BY: [place] [address] PATHOLOGIST SECURITY STRATEGIST CELESTINE SALAZAR M.D. Performed By: #### C BC, PRL, HS TROP, CK, PTT, CMP, PT #### [facility] [address] [place] [address] Platelet mean volume [Entiti c volume] in Blood by Automated countOrdered By: Robert Dubois on 01-19-2023 Platelet mean volume (Bld) [Entitic vol] 7.7 fL Normal 6.3-10.7 [facility] Comment on above: Performed By: #### C BC, PRL, HS TROP, CK, PTT, CMP, PT #### [facility] [address] Platelet poor plasma interna tional normalized ratio (INR) by coagulation assay (relatOrdered By: Robert Dubois on 01-19-2023 INR Coag (PPP) [Relative time] 1.0 {INR} Normal [facility] Comment on above: INR Therapeutic Rang e A) Pre- and Peroperative OAT started two weeks before surgery. NOT HIP SURGERY: 1.5 - 2.5 HIP SURGERY: 2 - 3B) Primary and secondary prevention of venous THROMBOSIS: 2 - 3C) Active venous thrombosis, pulmonary embolismand prevention of recurrent venous thrombosis: 2 - 3D) Prevention of arterial thromboembolismincluding patients with mechanical heart valves: 3 - 4.5 Result Comment: INR Therapeutic Range A) Pre- and Peroperative OAT started two weeks before surgery. NOT HIP SURGERY: 1.5 - 2.5 HIP SURGERY: 2 - 3 B) Primary and secondary prevention of venous THROMBOSIS: 2 - 3 C) Active venous thrombosis, pulmonary embolism and prevention of recurrent venous thrombosis: 2 - 3 D) Prevention of arterial thromboembolism including patients with mechanical heart valves: 3 - 4.5 Performed By: #### C BC, PRL, HS TROP, CK, PTT, CMP, PT #### [facility] [address] [place] [address] [place] Platelets [#/volume] in Bloo d by Automated countOrdered By: Robert Dubois on 01-19-2023 Platelets (Bld) [#/Vol] 249 10*3/uL Normal 150-450 [facility] Comment on above: Performed By: #### C BC, PRL, HS TROP, CK, PTT, CMP, PT #### [facility] [address] Potassium [Moles/volume] in Serum or PlasmaOrdered By: Robert Dubois on 01-19-2023 Potassium [Moles/Vol] 3.6 mmol/L Normal 3.5-5.1 [facility] Comment on above: Performed By: #### G LULS #### Point of Care testing , Prolactinon 01-19-2023 Prolactin 6.46 ng/mL Normal 3.34-26.72 [facility] Comment on above: Result Comment: PERF ORMED BY: [place] [address] PATHOLOGIST SECURITY STRATEGIST CELESTINE SALAZAR M.D. Performed By: #### G LULS #### Point of Care testing , Prolactin [Mass/volume] in S ryanne or PlasmaOrdered By: Robert Dubois on 01-19-2023 Prolactin [Mass/Vol] 6.46 ng/mL 3.34-26.72 [facility] Protein [Mass/volume] in Ser um or PlasmaOrdered By: Robert Dubois on 01-19-2023 Protein [Mass/Vol] 6.9 g/dL Normal 6.4-8.9 [facility] Comment on above: Performed By: #### G LULS #### Point of Care testing , Prothrombin Time INROrdered By: Robert Dubois on 01-19-2023 PT Coag (PPP) [Time] 11.1 s Normal 9.0-12.9 [facility] Comment on above: Performed By: #### C BC, PRL, HS TROP, CK, PTT, CMP, PT #### [facility] [address] Serum globulin measurement b y calculation (mass/volume)Ordered By: Robert Dubois on 01-19-2023 Globulin (S) [Mass/Vol] 2.7 g/dL Normal F [facility] Comment on above: Performed By: #### G LULS #### Point of Care testing , Serum or plasma albumin/glob ulin mass ratioOrdered By: Robert Dubois on 01-19-2023 Albumin/Globulin [Mass ratio] 1.6 {ratio} Normal [facility] Comment on above: Performed By: #### G LULS #### Point of Care testing , Serum or plasma anion gap de terminationOrdered By: Robert Dubois on 01-19-2023 Anion gap [Moles/Vol] 11.7 mmol/L Normal 6.0-15.0 [facility] Comment on above: Performed By: #### G LULS #### Point of Care testing , Sodium [Moles/volume] in Ser um or PlasmaOrdered By: Robert Dubois on 01-19-2023 Sodium [Moles/Vol] 140 mmol/L Normal 136-145 [facility] Comment on above: Performed By: #### G LULS #### Point of Care testing , Troponin I High Sensitivityo n 01-19-2023 Troponin I High Sensitivity 3.0 pg/mL Normal 0.0-15.0 [facility] Comment on above: Result Comment: PERF ORMED BY: [facility] [address] [place] [address] PATHOLOGIST SECURITY STRATEGIST CELESTIEN SALAZAR M.D. Performed By: #### G LULS #### Point of Care testing , Troponin I.cardiac [Mass/vol ume] in Serum or Plasma by Detection limit <= 0.01 ng/Ordered By: Robert Dubois on 01-19-2023 Troponin I.cardiac DL <= 0.01 ng/mL [Mass/Vol] 3.0 pg/mL 0.0-15.0 [facility] Urea nitrogen [Mass/volume] in Serum or PlasmaOrdered By: Robert Dubois on 01-19-2023 Urea nitrogen [Mass/Vol] 12 mg/dL Normal 7-25 [facility] Comment on above: Performed By: #### G ARMANI #### Point of Care testing , Alanine aminotransferase [En zymatic activity/volume] in Serum or PlasmaOrdered By: Sundeep Hutchison on 10-30-2022 ALT [Catalytic activity/Vol] 33 U/L 7-52 [facility] Albumin [Mass/volume] in Ser um or Plasma by Bromocresol green (BCG) dye binding methoOrdered By: Sundeep Hutchison on 10-30-2022 Albumin BCG dye [Mass/Vol] 4.7 g/dL 3.5-5.7 [facility] Alkaline phosphatase [Enzyma tic activity/volume] in Serum or PlasmaOrdered By: Sundeep Hutchison on 10-30-2022 ALP [Catalytic activity/Vol] 69 U/L 34-104 [facility] Aspartate aminotransferase [ Enzymatic activity/volume] in Serum or PlasmaOrdered By: Sundeep Hutchison on 10-30-2022 AST [Catalytic activity/Vol] 16 U/L 13-39 [facility] Automated erythrocytes count in urine sediment (number/area)Ordered By: Sundeep Hutchison on 10-30-2022 RBC Auto (Urine sed) [#/Area] 1-2 [HPF] 0-4 [facility] Automated leukocytes count i n urine sediment (number/area)Ordered By: Sundeep Hutchison on 10-30-2022 WBC Auto (Urine sed) [#/Area] 0-1 [HPF] 0-4 [facility] Basophils Auto (Bld) [#/Vol] Ordered By: Sundeep Hutchison on 10-30-2022 Basophils (Bld) [#/Vol] 0.1 10*3/uL 0.0-0.2 [facility] Basophils/100 WBC Auto (Bld) Ordered By: Sundeep Hutchison on 10-30-2022 Basophils/100 WBC (Bld) 0.9 % . F [facility] Bilirubin Test strip Ql (U)O rdered By: Sundeep Hutchison on 10-30-2022 Bilirubin Ql (U) Negative Negative [facility] Bilirubin.total [Mass/volume ] in Serum or PlasmaOrdered By: Sundeep Hutchison on 10-30-2022 Bilirubin [Mass/Vol] 0.5 mg/dL 0.3-1.0 [facility] Calcium [Mass/volume] in Ser um or PlasmaOrdered By: Sundeep Hutchison on 10-30-2022 Calcium [Mass/Vol] 9.6 mg/dL 8.6-10.3 [facility] Carbon dioxide, total [Moles /volume] in Serum or PlasmaOrdered By: Sundeep Hutchison on 10-30-2022 CO2 [Moles/Vol] 24.0 mmol/L 21.0-31.0 [facility] Chloride [Moles/volume] in S ryanne or PlasmaOrdered By: Sundeep Hutchison on 10-30-2022 Chloride [Moles/Vol] 104 mmol/L 98-107 [facility] Color Auto (U)Ordered By: Mg Hutchison on 10-30-2022 Color (U) Yellow Yellow [facility] Creatinine [Mass/volume] in Serum or PlasmaOrdered By: Sundeep Hutchison on 10-30-2022 Creatinine [Mass/Vol] 0.68 mg/dL 0.60-1.20 [facility] Eosinophils Auto (Bld) [#/Vo l]Ordered By: Sundeep Hutchison on 10-30-2022 Eosinophils (Bld) [#/Vol] 0.1 10*3/uL 0.0-0.45 [facility] Eosinophils/100 WBC Auto (Bl d)Ordered By: Sundeep Hutchison on 10-30-2022 Eosinophils/100 WBC (Bld) 0.9 % . [facility] Erythrocyte distribution wid th Auto (RBC) [Ratio]Ordered By: Sundeep Hutchison on 10-30-2022 Erythrocyte distribution width (RBC) [Ratio] 14.1 % 11.9-15.3 [facility] Erythrocyte sedimentation ra te by Photometric methodOrdered By: Sundeep Hutchison on 10-30-2022 ESR Photometric method (Bld) [Velocity] 13 mm/hr 0-19 [facility] Globulin Calc (S) [Mass/Vol] Ordered By: Sundeep Hutchison on 10-30-2022 Globulin (S) [Mass/Vol] 2.3 g/dL F [facility] Glucose [Mass/volume] in Ser um or PlasmaOrdered By: Sundeep Hutchison on 10-30-2022 Glucose [Mass/Vol] 91 mg/dL 74-109 [facility] Comment on above: ADA recommended refe rence rangeRandom Glucose Reference Range is dependent on time and content of last meal. Glucose of more than 200 mg/dL in a nonstressed, ambulatory subject supports the diagnosis of Diabetes Mellitus. Hematocrit Auto (Bld) [Volum e fraction]Ordered By: Sundeep Hutchison on 10-30-2022 Hematocrit (Bld) [Volume fraction] 43.3 % 34.0-46.4 [facility] Hemoglobin [Mass/volume] in BloodOrdered By: Sundeep Hutchison on 10-30-2022 Hemoglobin (Bld) [Mass/Vol] 14.9 g/dL 11.8-15.4 [facility] Ketones Auto test strip (U) [Mass/Vol]Ordered By: Sundeep Hutchison on 10-30-2022 Ketones (U) [Mass/Vol] Negative Negative [facility] Laboratory - Chemistry and C hemistry - challengeOrdered By: Sundeep Hutchison on 10-30-2022 GFR/1.73 sq M.predicted MDRD (S/P/Bld) [Vol rate/Area] mL/min/{1.73_m2} [facility] - UrinalysisOrder ed By: Sundeep Hutchison on 10-30-2022 Hyaline casts LM Ql (Urine sed) 0-8 [LPF] 0-8 [facility] Leukocytes [#/volume] correc nanda for nucleated erythrocytes in Blood by Automated counOrdered By: Sundeep Hutchison on 10-30-2022 WBC corrected for nucl RBC Auto (Bld) [#/Vol] 9.8 10*3/uL 3.8-11.6 [facility] Lymphocytes Auto (Bld) [#/Vo l]Ordered By: Sundeep Hutchison on 10-30-2022 Lymphocytes (Bld) [#/Vol] 2.9 10*3/uL 1.00-4.8 [facility] Lymphocytes/100 WBC Auto (Bl d)Ordered By: Sundeep Hutchison on 10-30-2022 Lymphocytes/100 WBC (Bld) 30.0 % . [facility] MCH Auto (RBC) [Entitic mass ]Ordered By: Sundeep Hutchison on 10-30-2022 MCH (RBC) [Entitic mass] 31.5 pg 24.7-34.3 [facility] MCHC Auto (RBC) [Mass/Vol]Or dered By: Sundeep Hutchison on 10-30-2022 MCHC (RBC) [Mass/Vol] 34.3 g/dL 32.0-35.0 [facility] MCV Auto (RBC) [Entitic vol] Ordered By: Sundeep Hutchison on 10-30-2022 MCV (RBC) [Entitic vol] 91.9 fL 80-100 [facility] Monocytes Auto (Bld) [#/Vol] Ordered By: Sundeep Hutchison on 10-30-2022 Monocytes (Bld) [#/Vol] 0.5 10*3/uL 0.0-0.8 [facility] Monocytes/100 WBC Auto (Bld) Ordered By: Sundeep Hutchison on 10-30-2022 Monocytes/100 WBC (Bld) 4.6 % . [facility] Neutrophils Auto (Bld) [#/Vo l]Ordered By: Sundeep Hutchison on 10-30-2022 Neutrophils (Bld) [#/Vol] 6.2 10*3/uL 1.8-7.7 [facility] Neutrophils/100 WBC Auto (Bl d)Ordered By: Sundeep Hutchison on 10-30-2022 Neutrophils/100 WBC (Bld) 63.6 % . [facility] Nitrite Test strip Ql (U)Ord ered By: Sundeep Hutchison on 10-30-2022 Nitrite Ql (U) Negative Negative [facility] No Panel InformationOrdered By: Sundeep Hutchison on 10-30-2022 Pharmacy Creatinine Clearance (Chem N/A [facility] Total Complement (CH50) >60 U/mL >41 F [facility] Comment on above: Age Male Female 1 - 30 days Not Estab. Not Estab. 31 days - 6 months >32 >20 7 months - 17 years >39 >39 >17 years >41 >41 NOTE: The adult ( >17 years ) reference interval range is used to flag abnormals on this report. If the patient is 17 years old or younger, use the table above to determine out of range values.Performed at: [id number] [id number] Director: Ayad Sanchez PhD, Phone: [phone] Nucleated erythrocytes [Pres ence] in Blood by Automated countOrdered By: Sundeep Hutchison on 10-30-2022 Nucleated RBC Auto Ql (Bld) 0.3 /100{WBC} 0-0.5 [facility] Platelet mean volume Auto (B ld) [Entitic vol]Ordered By: Sundeep Hutchison on 10-30-2022 Platelet mean volume (Bld) [Entitic vol] 8.1 fL 6.3-10.7 [facility] Platelets Auto (Bld) [#/Vol] Ordered By: Sundeep Hutchison on 10-30-2022 Platelets (Bld) [#/Vol] 289 10*3/uL 150-450 [facility] Potassium [Moles/volume] in Serum or PlasmaOrdered By: Sundeep Hutchison on 10-30-2022 Potassium [Moles/Vol] 4.5 mmol/L 3.5-5.1 [facility] Protein Auto test strip (U) [Mass/Vol]Ordered By: Sundeep Hutchison on 10-30-2022 Protein (U) [Mass/Vol] Trace mg/dL Negative [facility] Protein [Mass/volume] in Ser um or PlasmaOrdered By: Sundeep Hutchison on 10-30-2022 Protein [Mass/Vol] 7.0 g/dL 6.4-8.9 [facility] RBC Auto (Bld) [#/Vol]Ordere d By: Sundeep Hutchison on 10-30-2022 RBC (Bld) [#/Vol] 4.71 10*6/uL 3.60-5.00 [facility] Serum or plasma albumin/glob ulin mass ratioOrdered By: Sundeep Hutchison on 10-30-2022 Albumin/Globulin [Mass ratio] 2.0 {ratio} [facility] Serum or plasma anion gap de terminationOrdered By: Sundeep Hutchison on 10-30-2022 Anion gap [Moles/Vol] 13.5 mmol/L 6.0-15.0 [facility] Serum or plasma complement C 3 measurement (mass/volume)Ordered By: Sundeep Hutchison on 10-30-2022 Complement C3 [Mass/Vol] 170 mg/dL 82-167 [facility] Comment on above: Performed at: [address] [id number] Director: Ayad Sanchez PhD, Phone: [phone] Serum or plasma complement C 4 measurement (mass/volume)Ordered By: Sundeep Hutchison on 10-30-2022 Complement C4 [Mass/Vol] 31 mg/dL 12-38 [facility] Sodium [Moles/volume] in Ser um or PlasmaOrdered By: Sundeep Hutchison on 10-30-2022 Sodium [Moles/Vol] 137 mmol/L 136-145 [facility] Specific gravity Auto test s trip (U) [Rel density]Ordered By: Sundeep Hutchison on 10-30-2022 Specific gravity (U) [Rel density] 1.024 1.001-1.03 0 [facility] Squamous epithelial cells de tection in urine sediment by light microscopyOrdered By: Sundeep Hutchison on 10-30-2022 Epithelial cells.squamous LM Ql (Urine sed) 3-4 [HPF] 0-2 [facility] Urea nitrogen [Mass/volume] in Serum or PlasmaOrdered By: Sundeep Hutchison on 10-30-2022 Urea nitrogen [Mass/Vol] 14 mg/dL 7-25 [facility] Urine bacteria detection by automated methodOrdered By: Sundeep Hutchison on 10-30-2022 Bacteria Auto Ql (U) None seen None Seen [facility] Urine clarity by refractomet ry automatedOrdered By: Sundeep Hutchison on 10-30-2022 Clarity Refractometry automated (U) Turbid Clear [facility] Urine glucose measurement by automated test strip (mass/volume)Ordered By: Sundeep Hutchison on 10-30-2022 Glucose Auto test strip (U) [Mass/Vol] Normal mg/dL Normal [facility] Urine hemoglobin detection b y automated test stripOrdered By: Sundeep Hutchison on 10-30-2022 Hemoglobin Auto test strip Ql (U) Negative Negative [facility] Urine leukocyte esterase det ection by automated test stripOrdered By: Sundeep Hutchison on 10-30-2022 Leukocyte esterase Auto test strip Ql (U) Negative Negative [facility] Urobilinogen Auto test strip (U) [Mass/Vol]Ordered By: Sundeep Hutchison on 10-30-2022 Urobilinogen (U) [Mass/Vol] Normal mg/dL Normal [facility] WBC Auto (Bld) [#/Vol]Ordere d By: Sundeep Hutchison on 10-30-2022 WBC (Bld) [#/Vol] 9.8 10*3/uL 3.8-11.6 [facility] pH Auto test strip (U)Ordere d By: Sundeep Hutchison on 10-30-2022 pH (U) 5.5 [pH] 5.0-9.0 [facility] Albumin [Mass/volume] in Ser um or PlasmaOrdered By: Sundeep Hutchison on 07-29-2022 Albumin [Mass/Vol] 4.3 g/dL 3.2-5.5 [facility] Automated erythrocytes count in urine sediment (number/area)Ordered By: Sundeep Hutchison on 07-29-2022 RBC Auto (Urine sed) [#/Area] 5-9 [HPF] 0-4 [facility] Automated leukocytes count i n urine sediment (number/area)Ordered By: Sundeep Hutchison on 07-29-2022 WBC Auto (Urine sed) [#/Area] 1-2 [HPF] 0-4 [facility] Basophils Auto (Bld) [#/Vol] Ordered By: Sundeep Hutchison on 07-29-2022 Basophils (Bld) [#/Vol] 0.1 10*3/uL 0.0-0.2 [facility] Basophils/100 WBC Auto (Bld) Ordered By: Sundeep Hutchison on 07-29-2022 Basophils/100 WBC (Bld) 0.7 % . F [facility] Bilirubin Test strip Ql (U)O rdered By: Sundeep Hutchison on 07-29-2022 Bilirubin Ql (U) Negative Negative [facility] Color Auto (U)Ordered By: Mg cindi Foster on 07-29-2022 Color (U) Yellow Yellow [facility] Creatinine and Glomerular fi ltration rate.predicted panel (S/P/Bld)Ordered By: Sundeep Hutchison on 07-29-2022 Creatinine [Mass/Vol] 0.67 mg/dL 0.44-1.03 [facility] Eosinophils Auto (Bld) [#/Vo l]Ordered By: Sundeep Hutchison on 07-29-2022 Eosinophils (Bld) [#/Vol] 0.1 10*3/uL 0.0-0.45 [facility] Eosinophils/100 WBC Auto (Bl d)Ordered By: Sundeep Hutchison on 07-29-2022 Eosinophils/100 WBC (Bld) 0.6 % . [facility] Erythrocyte distribution wid th Auto (RBC) [Ratio]Ordered By: Sundeep Hutchison on 07-29-2022 Erythrocyte distribution width (RBC) [Ratio] 13.8 % 11.9-15.3 [facility] Erythrocyte sedimentation ra te by Photometric methodOrdered By: Sundeep Hutchison on 07-29-2022 ESR Photometric method (Bld) [Velocity] 13 mm/hr 0-19 [facility] Estimated glomerular filtrat ion rate (GFR) non- AmericanOrdered By: Sundeep Hutchison on 07-29-2022 GFR/1.73 sq M.predicted among non-blacks MDRD (S/P/Bld) [Vol rate/Area] > 60 mL/Min [facility] Globulin Calc (S) [Mass/Vol] Ordered By: Sundeep Hutchison on 07-29-2022 Globulin (S) [Mass/Vol] 2.8 g/dL F [facility] Hematocrit Auto (Bld) [Volum e fraction]Ordered By: Sundeep Hutchison on 07-29-2022 Hematocrit (Bld) [Volume fraction] 41.6 % 34.0-46.4 [facility] Hemoglobin [Mass/volume] in BloodOrdered By: Sundeep Hutchison on 07-29-2022 Hemoglobin (Bld) [Mass/Vol] 14.3 g/dL 11.8-15.4 [facility] Ketones Auto test strip (U) [Mass/Vol]Ordered By: Sundeep Hutchison on 07-29-2022 Ketones (U) [Mass/Vol] Trace Negative [facility] - UrinalysisOrder ed By: Sundeep Hutchison on 07-29-2022 Hyaline casts LM Ql (Urine sed) 9-19 [LPF] 0-8 [facility] Leukocytes [#/volume] correc nanda for nucleated erythrocytes in Blood by Automated counOrdered By: Sundeep Hutchison on 07-29-2022 WBC corrected for nucl RBC Auto (Bld) [#/Vol] 10.5 10*3/uL 3.8-11.6 [facility] Lymphocytes Auto (Bld) [#/Vo l]Ordered By: Sundeep Hutchison on 07-29-2022 Lymphocytes (Bld) [#/Vol] 3.2 10*3/uL 1.00-4.8 [facility] Lymphocytes/100 WBC Auto (Bl d)Ordered By: Sundeep Hutchison on 07-29-2022 Lymphocytes/100 WBC (Bld) 30.6 % . [facility] MCH Auto (RBC) [Entitic mass ]Ordered By: Sundeep Hutchison on 07-29-2022 MCH (RBC) [Entitic mass] 31.4 pg 24.7-34.3 [facility] MCHC Auto (RBC) [Mass/Vol]Or dered By: Sundeep Hutchison on 07-29-2022 MCHC (RBC) [Mass/Vol] 34.3 g/dL 32.0-35.0 [facility] MCV Auto (RBC) [Entitic vol] Ordered By: Sundeep Hutchison on 07-29-2022 MCV (RBC) [Entitic vol] 91.3 fL 80-100 F [facility] Monocytes Auto (Bld) [#/Vol] Ordered By: Sundeep Hutchison on 07-29-2022 Monocytes (Bld) [#/Vol] 0.4 10*3/uL 0.0-0.8 [facility] Monocytes/100 WBC Auto (Bld) Ordered By: Sundeep Hutchison on 07-29-2022 Monocytes/100 WBC (Bld) 4.1 % . F [facility] Neutrophils Auto (Bld) [#/Vo l]Ordered By: Sundeep Hutchison on 07-29-2022 Neutrophils (Bld) [#/Vol] 6.7 10*3/uL 1.8-7.7 [facility] Neutrophils/100 WBC Auto (Bl d)Ordered By: Sundeep Hutchison on 07-29-2022 Neutrophils/100 WBC (Bld) 64.0 % . [facility] Nitrite Test strip Ql (U)Ord ered By: Sundeep Hutchison on 07-29-2022 Nitrite Ql (U) Negative Negative [facility] No Panel InformationOrdered By: Sundeep Hutchison on 07-29-2022 Estimated GFR () > 60 mL/Min [facility] Comment on above: GFR estimated refere nce range: According to KDOQI guidelines, <60 ml/min/1.73m2 is sufficient to diagnose a patient with chronic kidney disease. Pharmacy Creatinine Clearance (Chem N/A [facility] Nucleated erythrocytes [Pres ence] in Blood by Automated countOrdered By: Sundeep Hutchison on 07-29-2022 Nucleated RBC Auto Ql (Bld) 0.1 /100{WBC} 0-0.5 [facility] Platelet mean volume Auto (B ld) [Entitic vol]Ordered By: Sundeep Hutchison on 07-29-2022 Platelet mean volume (Bld) [Entitic vol] 8.4 fL 6.3-10.7 [facility] Platelets Auto (Bld) [#/Vol] Ordered By: Sundeep Hutchison on 07-29-2022 Platelets (Bld) [#/Vol] 349 10*3/uL 150-450 [facility] Protein Auto test strip (U) [Mass/Vol]Ordered By: Sundeep Hutchison on 07-29-2022 Protein (U) [Mass/Vol] 30 mg/dL Negative Fi [facility] Protein [Mass/volume] in Ser um or PlasmaOrdered By: Sundeep Hutchison on 07-29-2022 Protein [Mass/Vol] 7.1 g/dL 6.1-7.9 [facility] RBC Auto (Bld) [#/Vol]Ordere d By: Sundeep Hutchison on 07-29-2022 RBC (Bld) [#/Vol] 4.56 10*6/uL 3.60-5.00 [facility] Serum or plasma alanine karimi otransferase measurement without P-5'-P (enzymatic activiOrdered By: Sundeep Hutchison on 07-29-2022 ALT No additional P-5'-P [Catalytic activity/Vol] 33 U/L 10-60 [facility] Serum or plasma albumin/glob ulin mass ratioOrdered By: Sundeep Hutchison on 07-29-2022 Albumin/Globulin [Mass ratio] 1.5 {ratio} [facility] Serum or plasma alkaline lj sphatase measurement (enzymatic activity/volume)Ordered By: Sundeep Hutchison on 07-29-2022 ALP [Catalytic activity/Vol] 89 U/L 32-92 [facility] Serum or plasma anion gap de terminationOrdered By: Sundeep Hutchison on 07-29-2022 Anion gap [Moles/Vol] 12.1 mmol/L 6.0-15.0 [facility] Serum or plasma aspartate am inotransferase measurement (enzymatic activity/volume)Ordered By: Sundeep Hutchison on 07-29-2022 AST [Catalytic activity/Vol] 20 U/L 10-42 [facility] Serum or plasma calcium aggie urement (mass/volume)Ordered By: Sundeep Hutchison on 07-29-2022 Calcium [Mass/Vol] 9.7 mg/dL 8.2-10.2 [facility] Serum or plasma chloride deidra surement (moles/volume)Ordered By: Sundeep Hutchison on 07-29-2022 Chloride [Moles/Vol] 103 mmol/L 95-114 [facility] Serum or plasma glucose aggie urement (mass/volume)Ordered By: Sundeep Hutchison on 07-29-2022 Glucose [Mass/Vol] 84 mg/dL 70-100 [facility] Comment on above: ADA recommended refe rence rangeRandom Glucose Reference Range is dependent on time and content of last meal. Glucose of more than 200 mg/dL in a nonstressed, ambulatory subject supports the diagnosis of Diabetes Mellitus. Serum or plasma potassium me asurement (moles/volume)Ordered By: Sundeep Hutchison on 07-29-2022 Potassium [Moles/Vol] 4.3 mmol/L 3.5-5.1 [facility] Serum or plasma sodium measu rement (moles/volume)Ordered By: Sundeep Hutchison on 07-29-2022 Sodium [Moles/Vol] 136 mmol/L 136-146 [facility] Serum or plasma total biliru bin measurement (mass/volume)Ordered By: Sundeep Hutchison on 07-29-2022 Bilirubin [Mass/Vol] 0.7 mg/dL 0.3-1.2 [facility] Serum or plasma total carbon dioxide measurement (moles/volume)Ordered By: Sundeep Hutchison on 07-29-2022 CO2 [Moles/Vol] 25.2 mmol/L 22.0-30.0 [facility] Serum or plasma urea nitroge n measurement (mass/volume)Ordered By: Sundeep Hutchison on 07-29-2022 Urea nitrogen [Mass/Vol] 17 mg/dL 9-23 [facility] Specific gravity Auto test s trip (U) [Rel density]Ordered By: Sundeep Hutchison on 07-29-2022 Specific gravity (U) [Rel density] 1.032 1.001-1.03 0 [facility] Squamous epithelial cells de tection in urine sediment by light microscopyOrdered By: Sundeep Hutchison on 07-29-2022 Epithelial cells.squamous LM Ql (Urine sed) 10-19 [HPF] 0-2 [facility] Urine bacteria detection by automated methodOrdered By: Sundepe Hutchison on 07-29-2022 Bacteria Auto Ql (U) 1+ None Seen [facility] Urine clarity by refractomet ry automatedOrdered By: Sundeep Hutchison on 07-29-2022 Clarity Refractometry automated (U) Turbid Clear [facility] Urine glucose measurement by automated test strip (mass/volume)Ordered By: Sundeep Hutchison on 07-29-2022 Glucose Auto test strip (U) [Mass/Vol] Normal mg/dL Normal [facility] Urine hemoglobin detection b y automated test stripOrdered By: Sundeep Hutchison on 07-29-2022 Hemoglobin Auto test strip Ql (U) Negative Negative [facility] Urine leukocyte esterase det ection by automated test stripOrdered By: Sundeep Streeterrow on 07-29-2022 Leukocyte esterase Auto test strip Ql (U) 1+ Negative [facility] Urobilinogen Auto test strip (U) [Mass/Vol]Ordered By: Sundeep Foster on 07-29-2022 Urobilinogen (U) [Mass/Vol] Normal mg/dL Normal [facility] WBC Auto (Bld) [#/Vol]Ordere d By: Sundeep Foster on 07-29-2022 WBC (Bld) [#/Vol] 10.5 10*3/uL 3.8-11.6 [facility] pH Auto test strip (U)Ordere d By: Sundeepdennis Hutchison on 07-29-2022 pH (U) 6.0 [pH] 5.0-9.0 [facility] GTT 2 HRon 07-21-2022 Glucose [Mass/Vol] 128 mg/dL Critically high 74-106 [facility] Comment on above: Performed By: #### G TT2 #### [facility] [address] [address] [address] Judy Pickens Glucose [Mass/Vol] 264 mg/dL [facility] Comment on above: Performed By: #### G TT2 #### [facility] [address] [address] [address] Judy Pickens Glucose [Mass/Vol] 190 mg/dL Normal [facility] Comment on above: Performed By: #### G TT2 #### [facility] [address] [address] [address] Judy Pickens POINT OF CARE GLUCOSEon 06-25 Glucose [Mass/Vol] 123 mg/dL Critically high 74-106 [facility] Comment on above: Performed By: #### P OCGLUC #### [facility] [address] [address] [address] Judy Pickens PAP ACOG PANEL 2: 30 to 65on 07-10-2022 . . Normal [facility] Comment on above: Result Comment: Perf ormed at: WB Performed By: #### [id number] #### [facility] [address] [address] [address] Judy Pickens Age Gdln ACOG Testing 30-65 Normal [facility] Comment on above: Performed By: #### [id number] #### [facility] [address] [address] [address] Judy Pickens DIAGNOSIS: Comment Normal [facility] Comment on above: Result Comment: NEGA TIVE FOR INTRAEPITHELIAL LESION OR MALIGNANCY. THIS SPECIMEN WAS RESCREENED PART OF OUR MUSEUM INFORMATICS SPECIALIST PROGRAM. Performed at: WB Performed By: #### [id number] #### [facility] [address] [place] [address] Dr. Judy Pickens HPV Aptima Negative Normal Negative [facility] Comment on above: Result Comment: This nucleic acid amplification test detects fourteen high-risk HPV types (16,18,31,33,35,39,45,51,52,56,58,59,66,68) without differentiation. Performed at: =G Performed By: #### [id number] #### [facility] [address] [place] [address] Dr. Judy Pickens HPV Genotype Reflex Comment Normal [facility] Comment on above: Result Comment: Crit eria not met, HPV Genotype not performed. Performed at: WB Performed By: #### [id number] #### [facility] [address] [place] [address] Dr. Judy Pickens Methodology: CTIM Normal [facility] Comment on above: Result Comment: The Thin Prep(R) Craft Coordinator was unable to read this specimen. Therefore a manual review was performed. Performed at: WB Performed By: #### [id number] #### [facility] [address] [place] [address] Dr. Judy Pickens Note: Comment Normal [facility] Comment on above: Result Comment: The Pap smear is a screening test designed to aid in the detection of premalignant and malignant conditions of the uterine cervix. It is not a diagnostic procedure and should not be used as the sole means of detecting cervical cancer. Both false-positive and false-negative reports do occur. . Performed at: WB Performed By: #### [id number] #### [facility] [address] [address] [address] Judy Pickens Performed by: Comment Normal [facility] Comment on above: Result Comment: Taylor Brown, Plate Keeper (ASCP) Performed at: WB Performed By: #### [id number] #### [facility] [address] [address] [address] Judy Pickens QC reviewed by: Comment Normal [facility] Comment on above: Result Comment: Lissette Upton, Plate Keeper (ASCP) Performed at: WB Performed By: #### [id number] #### [facility] [address] [place] [address] Dr. Judy Pickens Specimen adequacy: Comment Normal [facility] Comment on above: Result Comment: Sati sfactory for evaluation. No endocervical component is identified. Performed at: WB Performed By: #### [id number] #### [facility] [address] [place] [address] Dr. Judy Pickens DHEA SERUMon 07-07-2022 Dehydroepiandrosterone (DHEA) 174 ng/dL Normal 31-701 [facility] Comment on above: Result Comment: Age 1 - 5 years 0 - 67 6 - 7 years 0 - 110 8 - 10 years 0 - 185 11 - 12 years 0 - 201 13 - 14 years 0 - 318 15 - 16 years 39 - 481 17 - 19 years 40 - 491 >19 years 31 - 701 Performed By: #### D HEA. #### [facility] [address] [place] [address] Dr. Judy Pickens DHEA-SULFATEon 07-02-2022 DHEA-Sulfate 181.0 ug/dL Normal 41.2-243.7 [facility] Comment on above: Performed By: #### L BCFS #### [facility] [address] [place] [address] Dr. Judy Pickens ESTRADIOLon 07-02-2022 Estradiol 131.0 pg/mL Normal [facility] Comment on above: Result Comment: Adul t Female: Follicular phase 12.5 - 166.0 Ovulation phase 85.8 - 498.0 Luteal phase 43.8 - 211.0 Postmenopausal <6.0 - 54.7 1st trimester 215.0 - >4300.0 Leandra ECLIA methodology Performed By: #### E MARIANA #### [facility] [address] [place] [address] Dr. Judy Pickens FSHon 07-02-2022 FSH 9.2 mIU/mL Normal [facility] Comment on above: Result Comment: Adul t Female: Follicular phase 3.5 - 12.5 Ovulation phase 4.7 - 21.5 Luteal phase 1.7 - 7.7 Postmenopausal 25.8 - 134.8 Performed By: #### L BCFS #### [facility] [address] [place] [address] Dr. Judy Pickens LUTEINIZING HORMONE (LH)on 09-01-2021 LH 8.5 mIU/mL Normal [facility] Comment on above: Result Comment: Adul t Female: Follicular phase 2.4 - 12.6 Ovulation phase 14.0 - 95.6 Luteal phase 1.0 - 11.4 Postmenopausal 7.7 - 58.5 Performed By: #### L BCLH #### [facility] [address] [place] [address] Dr. Judy Pickens PROGESTERONEon 07-02-2022 Progesterone 0.5 ng/mL Normal [facility] Comment on above: Result Comment: Foll icular phase 0.1 - 0.9 Luteal phase 1.8 - 23.9 Ovulation phase 0.1 - 12.0 First trimester 11.0 - 44.3 Second trimester 25.4 - 83.3 Third trimester 58.7 - 214.0 Postmenopausal 0.0 - 0.1 Performed By: #### P MIKE #### [facility] [address] [place] [address] Dr. Judy Pickens CBC AUTO DIFFon 07-01-2022 BASO # 0.1 103/ul Normal 0.0-0.1 [facility] Comment on above: Performed By: #### C BC #### [facility] [address] [place] [address] Dr. Judy Pickens Basophils/100 WBC (Bld) 0.7 % Normal 0.2-2.0 [facility] Comment on above: Performed By: #### C BC #### [facility] [address] [place] [address] Dr. Judy Pickens EO # 0.1 103/ul Normal 0.0-0.7 [facility] Comment on above: Performed By: #### C BC #### [facility] [address] [place] [address] Dr. Judy Pickens Eosinophils/100 WBC (Bld) 0.6 % Critically low 0.9-7.0 [facility] Comment on above: Performed By: #### C BC #### [facility] [address] [place] [address] Dr. Judy Pickens Erythrocyte distribution width (RBC) [Ratio] 12.9 % Normal 11.0-15.0 [facility] Comment on above: Performed By: #### C BC #### [facility] [address] [place] [address] Dr. Judy Pickens Hematocrit (Bld) [Volume fraction] 42.1 % Normal 36.0-48.0 [facility] Comment on above: Performed By: #### C BC #### [facility] [address] [place] [address] Dr. Judy Pickens Hemoglobin (Bld) [Mass/Vol] 14.6 g/dL Normal 12.0-16.0 [facility] Comment on above: Performed By: #### C BC #### [facility] [address] [place] [address] Dr. Judy Pickens IG # 0.12 10e3/ul Critically high 0.00-0.03 [facility] Comment on above: Performed By: #### C BC #### [facility] [address] [place] [address] Dr. Judy Pickens IG % 0.9 % Critically high 0.0-0.5 [facility] Comment on above: Performed By: #### C BC #### [facility] [address] [place] [address] Dr. Judy Pickens LYMPH # 3.1 103/ul Normal 1.2-3.8 [facility] Comment on above: Performed By: #### C BC #### [facility] [address] [place] [address] Dr. Judy Pickens Lymphocytes/100 WBC (Bld) 23.3 % Normal 20.5-60.0 [facility] Comment on above: Performed By: #### C BC #### [facility] [address] [place] [address] Dr. Judy Pickens MANUAL DIFF REQ NO Normal [facility] Comment on above: Performed By: #### C BC #### [facility] [address] [place] [address] Dr. Judy Pickens MCH (RBC) [Entitic mass] 31.1 pg Normal 26.7-34.0 [facility] Comment on above: Performed By: #### C BC #### [facility] [address] [place] [address] Dr. Judy Pickens MCHC (RBC) [Mass/Vol] 34.7 g/dL Normal 29.9-35.2 [facility] Comment on above: Performed By: #### C BC #### [facility] [address] [place] [address] Dr. Judy Pickens MCV (RBC) [Entitic vol] 89.8 fL Normal 81.0-99.0 [facility] Comment on above: Performed By: #### C BC #### [facility] [address] [place] [address] Dr. Judy Pickens MONO # 0.6 103/ul Normal 0.3-0.8 [facility] Comment on above: Performed By: #### C BC #### [facility] [address] [place] [address] Dr. Judy Pickens Monocytes/100 WBC (Bld) 4.7 % Normal 1.7-12.0 [facility] Comment on above: Performed By: #### C BC #### [facility] [address] [place] [address] Dr. Judy Pickens NEUT # 9.4 103/ul Critically high 1.4-6.5 [facility] Comment on above: Performed By: #### C BC #### [facility] [address] [place] [address] Dr. Judy Pickens Neutrophils/100 WBC (Bld) 69.8 % Normal 43.0-75.0 [facility] Comment on above: Performed By: #### C BC #### [facility] [address] [place] [address] Dr. Judy Pickens Platelet mean volume (Bld) [Entitic vol] 9.5 fL Normal 9.5-13.5 [facility] Comment on above: Performed By: #### C BC #### [facility] [address] [place] [address] Dr. Judy Pickens PLT 291 103/ul Normal 150-[address] [facility] Comment on above: Performed By: #### C BC #### [facility] [address] [place] [address] Dr. Judy Pickens RBC 4.69 106/ul Normal 4.20-5.40 [facility] Comment on above: Performed By: #### C BC #### [facility] [address] [place] [address] Dr. Judy Pickens WBC 13.5 103/ul Critically high 4.0-11.0 [facility] Comment on above: Performed By: #### C BC #### [facility] [address] [place] [address] Dr. Judy Pickens FREE T4on 07-01-2022 Free T4 [Mass/Vol] 1.06 ng/dL Normal 0.76-1.46 [facility] Comment on above: Performed By: #### L BCFS #### [facility] [address] [place] [address] Dr. Judy Pickens GLYCOHEMOGLOBIN A1Con 2021 ADA RECOMMENDATION SEE BELOW Normal [facility] Comment on above: Result Comment: ADA RECOMMENDED LIMIT 4.0 - 6.0 ADA THERAPEUTIC TARGET < 7.0 ACTION SUGGESTED > 7.0 Performed By: #### A 1C #### [facility] [address] [address] [address] Judy Pickens Glucose [Mass/Vol] 126 mg/dL Normal [facility] Comment on above: Performed By: #### A 1C #### [facility] [address] [address] [address] Judy Pickens HbA1c (Bld) [Mass fraction] 6.0 % Normal 4.5-6.2 [facility] Comment on above: Performed By: #### A 1C #### [facility] [address] [address] [address] Judy Pickens TSHon 07-01-2022 TSH 1.491 uIU/mL Normal 0.358-3.74 0 [facility] Comment on above: Performed By: #### L BCFSH #### [facility] [address] [address] [address] Judy Pickens Albumin [Mass/volume] in Ser um or PlasmaOrdered By: Sundeep Hutchison on 04-24-2022 Albumin [Mass/Vol] 4.3 g/dL 3.2-5.5 [facility] Automated erythrocytes count in urine sediment (number/area)Ordered By: Sundeep Hutchison on 04-24-2022 RBC Auto (Urine sed) [#/Area] 3-4 [HPF] 0-4 [facility] Automated leukocytes count i n urine sediment (number/area)Ordered By: Sundeep Hutchison on 04-24-2022 WBC Auto (Urine sed) [#/Area] 0-1 [HPF] 0-4 [facility] Basophils Auto (Bld) [#/Vol] Ordered By: Sundeep Hutchison on 04-24-2022 Basophils (Bld) [#/Vol] 0.1 10*3/uL 0.0-0.2 [facility] Basophils/100 WBC Auto (Bld) Ordered By: Sundeep Hutchison on 04-24-2022 Basophils/100 WBC (Bld) 1.0 % . F [facility] Bilirubin Test strip Ql (U)O rdered By: Sundeep Hutchison on 04-24-2022 Bilirubin Ql (U) Negative Negative [facility] Blood hemoglobin measurement (mass/volume)Ordered By: Sundeep Hutchison on 04-24-2022 Hemoglobin (Bld) [Mass/Vol] 14.5 g/dL 11.8-15.4 [facility] Blood leukocytes automated c ount (number/volume)Ordered By: Sundeep Hutchison on 04-24-2022 WBC (Bld) [#/Vol] 12.1 10*3/uL 4.5-11.0 [facility] Color Auto (U)Ordered By: Mg Hutchison on 04-24-2022 Color (U) Yellow Yellow [facility] Creatinine and Glomerular fi ltration rate.predicted panel (S/P/Bld)Ordered By: Sundeep Hutchison on 04-24-2022 Creatinine [Mass/Vol] 0.67 mg/dL 0.44-1.03 [facility] Eosinophils Auto (Bld) [#/Vo l]Ordered By: Sundeep Hutchison on 04-24-2022 Eosinophils (Bld) [#/Vol] 0.1 10*3/uL 0.0-0.45 [facility] Eosinophils/100 WBC Auto (Bl d)Ordered By: Sundeep Hutchison on 04-24-2022 Eosinophils/100 WBC (Bld) 1.1 % . [facility] Erythrocyte distribution wid th Auto (RBC) [Ratio]Ordered By: Sundeep Hutchison on 04-24-2022 Erythrocyte distribution width (RBC) [Ratio] 13.5 % 11.9-15.3 [facility] Erythrocyte sedimentation ra te by Photometric methodOrdered By: Sundeep Hutchison on 04-24-2022 ESR Photometric method (Bld) [Velocity] 10 mm/hr 0-19 [facility] Estimated glomerular filtrat ion rate (GFR) non- AmericanOrdered By: Sundeep Hutchison on 04-24-2022 GFR/1.73 sq M.predicted among non-blacks MDRD (S/P/Bld) [Vol rate/Area] > 60 mL/Min [facility] Globulin Calc (S) [Mass/Vol] Ordered By: Sundeep Hutchison on 04-24-2022 Globulin (S) [Mass/Vol] 2.7 g/dL F [facility] Hematocrit Auto (Bld) [Volum e fraction]Ordered By: Sundeep Hutchison on 04-24-2022 Hematocrit (Bld) [Volume fraction] 42.3 % 34.0-46.4 [facility] Ketones Auto test strip (U) [Mass/Vol]Ordered By: Sundeep Hutchison on 04-24-2022 Ketones (U) [Mass/Vol] Negative Negative Fi [facility] Laboratory - Hematology and Cell countsOrdered By: Sundeep Hutchison on 04-24-2022 Nucleated RBC/100 WBC (Bld) [Ratio] 0.1 % 0-0.5 [facility] Laboratory - UrinalysisOrder ed By: Sundeep Hutchison on 04-24-2022 Hyaline casts LM Ql (Urine sed) 0-8 [LPF] 0-8 [facility] Lymphocytes Auto (Bld) [#/Vo l]Ordered By: Sundeep Hutchison on 04-24-2022 Lymphocytes (Bld) [#/Vol] 3.2 10*3/uL 1.00-4.8 [facility] Lymphocytes/100 WBC Auto (Bl d)Ordered By: Sundeep Hutchison on 04-24-2022 Lymphocytes/100 WBC (Bld) 26.2 % . [facility] MCH Auto (RBC) [Entitic mass ]Ordered By: Sundeep Hutchison on 04-24-2022 MCH (RBC) [Entitic mass] 31.2 pg 24.7-34.3 [facility] MCHC Auto (RBC) [Mass/Vol]Or dered By: Sundeep Hutchison on 04-24-2022 MCHC (RBC) [Mass/Vol] 34.4 g/dL 32.0-35.0 [facility] MCV Auto (RBC) [Entitic vol] Ordered By: Sundeep Hutchison on 04-24-2022 MCV (RBC) [Entitic vol] 90.8 fL 80-100 F [facility] Monocytes Auto (Bld) [#/Vol] Ordered By: Sundeep Hutchison on 04-24-2022 Monocytes (Bld) [#/Vol] 0.6 10*3/uL 0.0-0.8 [facility] Monocytes/100 WBC Auto (Bld) Ordered By: Sundeep Hutchison on 04-24-2022 Monocytes/100 WBC (Bld) 4.8 % . [facility] Neutrophils Auto (Bld) [#/Vo l]Ordered By: Sundeep Streeterrow on 04-24-2022 Neutrophils (Bld) [#/Vol] 8.1 10*3/uL 1.8-7.7 [facility] Neutrophils/100 WBC Auto (Bl d)Ordered By: Sundeep Hutchison on 04-24-2022 Neutrophils/100 WBC (Bld) 66.9 % . [facility] Nitrite Test strip Ql (U)Ord ered By: Sundeep Hutchison on 04-24-2022 Nitrite Ql (U) Negative Negative [facility] No Panel InformationOrdered By: Sundeepdennis Hutchison on 04-24-2022 Estimated GFR () > 60 mL/Min [facility] Comment on above: GFR estimated refere nce range: According to KDOQI guidelines, <60 ml/min/1.73m2 is sufficient to diagnose a patient with chronic kidney disease. Pharmacy Creatinine Clearance (Chem N/A [facility] Total Complement (CH50) >60 U/mL >41 F [facility] Comment on above: Age Male Female 1 - 30 days Not Estab. Not Estab. 31 days - 6 months >32 >20 7 months - 17 years >39 >39 >17 years >41 >41 NOTE: The adult ( >17 years ) reference interval range is used to flag abnormals on this report. If the patient is 17 years old or younger, use the table above to determine out of range values. Performed at: - [address] [id number] Descriptive Catalog Librarian: Ayad Sanchez PhD, Phone: [phone] Platelet mean volume Auto (B ld) [Entitic vol]Ordered By: Sundeep Hutchison on 04-24-2022 Platelet mean volume (Bld) [Entitic vol] 8.9 fL 6.3-10.7 [facility] Platelets Auto (Bld) [#/Vol] Ordered By: Sundeep Hutchison on 04-24-2022 Platelets (Bld) [#/Vol] 260 10*3/uL 150-450 [facility] Protein Auto test strip (U) [Mass/Vol]Ordered By: Sundeep Hutchison on 04-24-2022 Protein (U) [Mass/Vol] Trace mg/dL Negative [facility] Protein [Mass/volume] in Ser um or PlasmaOrdered By: Sundeep Hutchison on 04-24-2022 Protein [Mass/Vol] 7.0 g/dL 6.1-7.9 [facility] RBC Auto (Bld) [#/Vol]Ordere d By: Sundeep Hutchison on 04-24-2022 RBC (Bld) [#/Vol] 4.66 10*6/uL 3.60-5.00 [facility] Serum or plasma alanine karimi otransferase measurement without P-5'-P (enzymatic activiOrdered By: Sundeep Hutchison on 04-24-2022 ALT No additional P-5'-P [Catalytic activity/Vol] 26 U/L 10-60 [facility] Serum or plasma albumin/glob ulin mass ratioOrdered By: Sundeep Hutchison on 04-24-2022 Albumin/Globulin [Mass ratio] 1.6 {ratio} [facility] Serum or plasma alkaline lj sphatase measurement (enzymatic activity/volume)Ordered By: Sundeep Hutchison on 04-24-2022 ALP [Catalytic activity/Vol] 99 U/L 32-92 [facility] Serum or plasma anion gap de terminationOrdered By: Sundeep Hutchison on 04-24-2022 Anion gap [Moles/Vol] 18.1 mmol/L 6.0-15.0 [facility] Serum or plasma aspartate am inotransferase measurement (enzymatic activity/volume)Ordered By: Sundeep Hutchison on 04-24-2022 AST [Catalytic activity/Vol] 18 U/L 10-42 [facility] Serum or plasma calcium aggie urement (mass/volume)Ordered By: Sundeep Hutchison on 04-24-2022 Calcium [Mass/Vol] 10.1 mg/dL 8.2-10.2 [facility] Serum or plasma chloride deidra surement (moles/volume)Ordered By: Sundeep Hutchison on 04-24-2022 Chloride [Moles/Vol] 99 mmol/L 95-114 [facility] Serum or plasma complement C 3 measurement (mass/volume)Ordered By: Sundeep Hutchison on 04-24-2022 Complement C3 [Mass/Vol] 195 mg/dL 82-167 [facility] Comment on above: Performed at: - L [address] [id number] Descriptive Catalog Librarian: Ayad Sanchez PhD, Phone: [phone] Serum or plasma complement C 4 measurement (mass/volume)Ordered By: Sundeep Hutchison on 04-24-2022 Complement C4 [Mass/Vol] 33 mg/dL 12-38 [facility] Serum or plasma glucose aggie urement (mass/volume)Ordered By: Sundeep Hutchison on 04-24-2022 Glucose [Mass/Vol] 99 mg/dL 70-100 [facility] Comment on above: ADA recommended refe rence range Random Glucose Reference Range is dependent on time and content of last meal. Glucose of more than 200 mg/dL in a nonstressed, ambulatory subject supports the diagnosis of Diabetes Mellitus. Serum or plasma potassium me asurement (moles/volume)Ordered By: Sundeep Hutchison on 04-24-2022 Potassium [Moles/Vol] 4.4 mmol/L 3.5-5.1 [facility] Serum or plasma sodium measu rement (moles/volume)Ordered By: Sundeep Hutchison on 04-24-2022 Sodium [Moles/Vol] 137 mmol/L 136-146 [facility] Serum or plasma total biliru bin measurement (mass/volume)Ordered By: Sundeep Hutchison on 04-24-2022 Bilirubin [Mass/Vol] 0.4 mg/dL 0.3-1.2 [facility] Serum or plasma total carbon dioxide measurement (moles/volume)Ordered By: Sundeep Hutchison on 04-24-2022 CO2 [Moles/Vol] 24.3 mmol/L 22.0-30.0 [facility] Serum or plasma urea nitroge n measurement (mass/volume)Ordered By: Sundeep Hutchison on 04-24-2022 Urea nitrogen [Mass/Vol] 16 mg/dL 9- [facility] Specific gravity Auto test s trip (U) [Rel density]Ordered By: Sundeep Hutchison on 04-24-2022 Specific gravity (U) [Rel density] 1.031 1.001-1.03 0 [facility] Squamous epithelial cells de tection in urine sediment by light microscopyOrdered By: Sundeep Hutchison on 04-24-2022 Epithelial cells.squamous LM Ql (Urine sed) 5-9 [HPF] 0-2 [facility] Urine bacteria detection by automated methodOrdered By: Sundeep Hutchison on 04-24-2022 Bacteria Auto Ql (U) None seen None Seen [facility] Urine clarity by refractomet ry automatedOrdered By: Sundeep Hutchison on 04-24-2022 Clarity Refractometry automated (U) Cloudy Clear [facility] Urine glucose measurement by automated test strip (mass/volume)Ordered By: Sundeep Hutchison on 04-24-2022 Glucose Auto test strip (U) [Mass/Vol] Normal mg/dL Normal [facility] Urine hemoglobin detection b y automated test stripOrdered By: Sundeep Hutchison on 04-24-2022 Hemoglobin Auto test strip Ql (U) Negative Negative [facility] Urine leukocyte esterase det ection by automated test stripOrdered By: Sundeep Hutchison on 04-24-2022 Leukocyte esterase Auto test strip Ql (U) Negative Negative [facility] Urobilinogen Auto test strip (U) [Mass/Vol]Ordered By: Sundeep Hutchison on 04-24-2022 Urobilinogen (U) [Mass/Vol] Normal mg/dL Normal [facility] pH Auto test strip (U)Ordere d By: Sundeep Hutchison on 04-24-2022 pH (U) 5.5 [pH] 5.0-9.0 [facility] Vital Signs Date Time Vital Sign Value Performing Clinician Facility 08-15-2024 14:38-0500 Body mass index (BMI) [Ratio] 33.27 kg/m2 Nato Radha [employer] Work Phone: [facility] 08-15-2024 14:38-0500 Body weight 87.91 kg [facility] [employer] Work Phone: [facility] 08-15-2024 14:38-0500 Diastolic blood pressure 70 mm[Hg] Nato Radha DO Work Phone: [facility] 08-15-2024 14:38-0500 Systolic blood pressure 110 mm[Hg] Nato Radha DO Work Phone: [facility] 07-07-2024 10:56-0500 Body height 163.83 cm [facility] 07-07-2024 10:56-0500 Body mass index (BMI) [Ratio] 32.5 kg/m2 [facility] 07-07-2024 10:56-0500 Body weight 87.25 kg [facility] 07-07-2024 10:56-0500 Diastolic blood pressure 70 mm[Hg] [facility] 07-07-2024 10:56-0500 Heart rate 100 /min [facility] 07-07-2024 10:56-0500 Respiratory rate 18 /min [facility] 07-07-2024 10:56-0500 SaO2% (BldA) [Mass fraction] 98 % [facility] 07-07-2024 10:56-0500 Systolic blood pressure 118 mm[Hg] [facility] 06-29-2024 08:54-0500 Body mass index (BMI) [Ratio] 32.17 kg/m2 Asia Vance MD Work Phone: [facility] 06-29-2024 08:54-0500 Body weight 87.7 kg Asia Vance MD Work Phone: [facility] 06-29-2024 08:54-0500 Diastolic blood pressure 62 mm[Hg] Asia Vance MD Work Phone: [facility] 06-29-2024 08:54-0500 Heart rate 91 /min Asia Vance MD Work Phone: [facility] 06-29-2024 08:54-0500 Respiratory rate 16 /min Asia Vance MD Work Phone: [facility] 06-29-2024 08:54-0500 Systolic blood pressure 108 mm[Hg] Asia Vance MD Work Phone: [facility] 05-25-2024 09:40-0400 Body height 162.6 cm Iwona Ava DO Work Phone: [facility] 05-25-2024 09:40-0400 Body mass index (BMI) [Ratio] 32.79 kg/m2 Iwona Ava DO Work Phone: [facility] 05-25-2024 09:40-0400 Body weight 86.64 kg Iwona Ava DO Work Phone: [facility] 05-04-2024 09:45-0400 Body height 162.6 cm Iwona Ava DO Work Phone: [facility] 05-04-2024 09:45-0400 Body mass index (BMI) [Ratio] 32.79 kg/m2 Iwona Ava DO Work Phone: [facility] 05-04-2024 09:45-0400 Body weight 86.64 kg Iwona Ava DO Work Phone: [facility] 01-21-2023 11:48-0400 Body temperature 97.9 [degF] DO Bret Chiuer Work Phone: [facility] 01-21-2023 11:48-0400 Diastolic blood pressure 89 mm[Hg] DO Bret Chiuer Work Phone: [facility] 01-21-2023 11:48-0400 Heart rate 80 /min DO Bret Chiuer Work Phone: [facility] 01-21-2023 11:48-0400 Respiratory rate 20 /min DO Bret Duncan Work Phone: [facility] 01-21-2023 11:48-0400 SaO2% (BldA) [Mass fraction] 95 % DO Bret Chiuer Work Phone: [facility] 01-21-2023 11:48-0400 Systolic blood pressure 142 mm[Hg] DO Bret Chiuer Work Phone: [facility] 01-21-2023 06:15-0400 Body weight 98.2 kg DO Bret Chiuer Work Phone: [facility] 01-19-2023 23:09-0400 Body height 170.18 cm DO Bret Song Work Phone: [facility] 01-19-2023 23:09-0400 Body temperature 97.8 [degF] DO Bret Song Work Phone: [facility] 01-19-2023 23:09-0400 Body weight 98.2 kg DO Bret Song Work Phone: [facility] 01-19-2023 23:09-0400 Diastolic blood pressure 85 mm[Hg] DO Bret Song Work Phone: [facility] 01-19-2023 23:09-0400 Heart rate 75 /min DO Bret Song Work Phone: [facility] 01-19-2023 23:09-0400 Respiratory rate 18 /min DO Bret Song Work Phone: [facility] 01-19-2023 23:09-0400 SaO2% (BldA) [Mass fraction] 98 % DO Bret Song Work Phone: [facility] 01-19-2023 23:09-0400 Systolic blood pressure 137 mm[Hg] DO Bret Song Work Phone: [facility] Encounters Encounter Date Encounter Type Care Provider Facility Start: 09-16-2024 ambulatory KRISTINE Sargent ty:[facility] Start: 09-07-2024 End: 09-08-2024 Social Work Kaylee Guerra [facility] Work Phone: [facility] Comment on above: THEO (generalized anx iety disorder) (CMS/HCC); Marital conflict Start: 09-07-2024 End: 09-07-2024 Bamboo flowsheet Kaylee Guerra [facility] Work Phone: [facility] Start: 09-07-2024 End: 09-07-2024 Bamboo Everstringheet Kaylee Guerra [facility] Work Phone: [facility] Start: 08-27-2024 End: 08-27-2024 Letter encounter [facility] Start: 08-22-2024 End: 08-22-2024 ambulatory KRISTINE A ANNABELLA Facility:[facility] [place] Start: 08-15-2024 End: 08-15-2024 Office outpatient visit 15 minutes Nato Radha DO Work Phone: [facility] Comment on above: Hormone imbalance; Hormone disorder; Breast cancer screening by mammogram Start: 08-15-2024 End: 08-15-2024 ambulatory NATO RADHA Not Available Start: 08-15-2024 End: 08-15-2024 Bamboo flowsheet Nato Radha DO Work Phone: [facility] Start: 08-15-2024 End: 08-15-2024 Bamboo flowsheet Nato Radha DO Work Phone: [facility] Start: 08-03-2024 End: 08-04-2024 Social Work Kaylee Guerra [facility] Work Phone: [facility] Comment on above: THEO (generalized anx iety disorder) ([facility]); Marital conflict Start: 08-03-2024 End: 08-03-2024 Bamboo flowsheet Kaylee Guerra [facility] Work Phone: [facility] Start: 08-03-2024 End: 08-03-2024 Bamboo flowsheet Kaylee Guerra [facility] Work Phone: [facility] Start: 07-26-2024 End: 07-26-2024 ambulatory KRISTINE A ANNABELLA Facility:[facility] [place] [facility] Start: 07-19-2024 End: 07-19-2024 ambulatory KRISTINE A ANNABELLA Facility:[facility] [place] [facility] Start: 07-07-2024 End: 07-07-2024 ambulatory [facility] Work Phone: Start: 07-07-2024 End: 07-07-2024 Patient encounter procedure [facility] [place] Work Phone: Start: 06-29-2024 End: 06-29-2024 ambulatory ASIA VANCE Facility:[facility] Start: 06-29-2024 End: 06-29-2024 Patient encounter procedure Asia Vance MD Work Phone: Endocrinology Comment on above: Type 2 diabetes lynne itus without complication, without long- term current use of insulin (HCC) (Primary Dx); Acquired hypothyroidism; Hypertension, unspecified type; History of PCOS; Obesity, class 3; Depression, unspecified depression type Start: 06-22-2024 End: 06-23-2024 Social Work Kaylee Guerra [facility] Work Phone: [facility] Comment on above: THEO (generalized anx iety disorder) (CMS/HCC); Marital conflict Start: 06-22-2024 End: 06-22-2024 [employer] Kaylee Guerra [facility] Work Phone: [facility] Start: 06-22-2024 End: 06-22-2024 [employer] Kaylee Abbi Guerra [facility] Work Phone: [facility] Start: 06-21-2024 End: 06-21-2024 Lab Drop off KRISTINE A ANNABELLA [facility] Start: 06-21-2024 End: 06-21-2024 ambulatory JUDICIAL ASSISTANT KRISTINE A ANNABELLA Facility:[facility] Start: 06-15-2024 End: 06-15-2024 Patient encounter procedure KRISTINE A ANNABELLA [facility] [place] Start: 06-15-2024 End: 06-15-2024 ambulatory KRISTINE A ANNABELLA Facility:[facility] Sarah ramirez Start: 05-31-2024 End: 05-31-2024 Social Work Kaylee Abbi Guerra [facility] Work Phone: [facility] Comment on above: THEO (generalized anx iety disorder) (CMS/HCC); Marital conflict Start: 05-31-2024 End: 05-31-2024 Bamboo flowsheet Kaylee Guerra [facility] Work Phone: [facility] Start: 05-31-2024 End: 05-31-2024 Bamboo flowsheet Kaylee Guerra [facility] Work Phone: [facility] Start: 05-25-2024 End: 05-25-2024 Patient encounter procedure Iwona Escalante DO Work Phone: [facility] Comment on above: S/P arthroscopy of l eft shoulder (Primary Dx) Start: 05-25-2024 End: 05-25-2024 ambulatory IWONA ESCALANTE Not Available Start: 05-10-2024 End: 05-11-2024 Social Work Kaylee Guerra [facility] Work Phone: [facility] Comment on above: THEO (generalized anx iety disorder) ([facility]); Marital conflict Start: 05-10-2024 End: 05-10-2024 Bamboo flowsheet Kaylee Guerra [facility] Work Phone: [facility] Start: 05-10-2024 End: 05-10-2024 Bamboo flowsheet Kaylee Guerra [facility] Work Phone: [facility] Start: 05-04-2024 End: 05-04-2024 Bamboo flowsheet Iwona Escalante DO Work Phone: [facility] Start: 05-04-2024 End: 05-04-2024 Bamboo flowsheet Iwona Escalante DO Work Phone: [facility] Start: 05-04-2024 End: 05-04-2024 Patient encounter procedure Iwona Escalante DO Work Phone: [facility] Comment on above: Pre-op testing (Prim david Dx); Left shoulder pain, unspecified chronicity Start: 05-04-2024 End: 05-04-2024 Patient encounter status Iwona Escalante DO Work Phone: [facility] Start: 05-04-2024 End: 05-04-2024 ambulatory IWONA T ESCALANTE Not Available Start: 04-27-2024 End: 04-27-2024 ambulatory IWONA T ESCALANTE Not Available Start: 04-19-2024 End: 04-19-2024 Refill Jessee Mcclellan DO Work Phone: [phone] Comment on above: Benign essential HTN (CMS/HCC) Start: 04-19-2024 End: 04-19-2024 ambulatory KRISTINE A ANNABELLA Facility:[facility] [place] [facility] Start: 04-18-2024 End: 04-18-2024 Refill Vivek OCHOA Work Phone: [phone] Comment on above: Migraine without sta tus migrainosus, not intractable, unspecified migraine type (CMS/HCC) Start: 04-06-2024 End: 04-06-2024 ambulatory KRISTINE A ANNABELLA Facility:[facility] Start: 04-06-2024 End: 04-06-2024 Patient encounter procedure Vivienne Dorsey [facility] Start: 04-06-2024 End: 04-06-2024 ambulatory IWONA T AVA Not Available Start: 03-23-2024 End: 03-23-2024 ambulatory IWONA T ESCALNATE Not Available Start: 03-22-2024 End: 03-22-2024 ambulatory KRISTINE A ANNABELLA Facility:[facility] [place] [facility] Start: 03-08-2024 End: 03-08-2024 ambulatory KRISTINE A ANNABELLA Facility:[facility] [place] Start: 02-17-2024 End: 02-17-2024 ambulatory IWONA T ESCALANTE Not Available Start: 02-17-2024 End: 02-17-2024 ambulatory IWONA T ESCALANTE Not Available Start: 02-04-2024 End: 02-04-2024 ambulatory KRISTINE A ANNABELLA Facility:[facility] [place] Start: 02-01-2024 ambulatory KRISTINE ANNABELLA Facility :[facility] [place] Start: 01-27-2024 End: 01-27-2024 ambulatory IWONA T ESCALANTE Not Available Start: 01-13-2024 End: 01-13-2024 ambulatory IWONA Haresh AVA Not Available Start: 01-07-2024 End: 01-07-2024 ambulatory Phyllis Shi Facility:[facility] Start: 01-07-2024 End: 01-07-2024 ambulatory DO Bret Song Work Phone: [facility] Work Phone: Start: 01-07-2024 End: 01-07-2024 Patient encounter procedure DO Bret Song Work Phone: [facility] [address] Work Phone: Start: 12-14-2023 End: 12-15-2023 ambulatory BRET SONG Not Available Start: 11-02-2023 End: 11-03-2023 ambulatory BRET SONG Not Available Start: 09-08-2023 End: 09-08-2023 ambulatory Phyllis Shi Facility:[facility] Start: 09-08-2023 End: 09-08-2023 ambulatory DO Bret Chiuer Work Phone: [facility] Work Phone: Start: 09-08-2023 End: 09-08-2023 Patient encounter procedure DO Bret Song Work Phone: [facility] [address] Work Phone: Start: 05-27-2023 End: 05-27-2023 ambulatory Sundeep Foster Facility:[facility] Start: 05-27-2023 End: 05-27-2023 ambulatory DO Bret Song Work Phone: [facility] Work Phone: Start: 05-27-2023 End: 05-27-2023 Patient encounter procedure DO Bret Song Work Phone: [facility] [address] Work Phone: Start: 03-25-2023 ambulatory Ms. Crys Swift Faci lity:[id number] Start: 03-25-2023 Office outpatient ne w 45 minutes Bret Song Work Phone: [id number] [address] Work Phone: Start: 01-20-[address] Bret Song Facility:[id number] Start: 01-19-2023 End: 01-21-2023 Evaluation and management of inpatient Cole Flores Facility:[facility] Start: 01-19-2023 End: 01-21-2023 Evaluation and management of inpatient DO Bret Song Work Phone: [facility] Work Phone: Start: 11-23-2022 Letter encounter [facility] Start: 11-21-[address] NATO GARCIA . Facili ty:H1 Start: 10-30-2022 End: 10-30-2022 Patient encounter procedure DO Bret Song Work Phone: [facility] [address] Work Phone: Start: 08-26-2022 [facility] encounter [facility] Start: 07-29-2022 End: 07-29-2022 ambulatory DO Bret Song Work Phone: [facility] Work Phone: Start: 07-29-2022 End: 07-29-2022 Patient encounter procedure DO Bret Song Work Phone: [facility] [address] Start: 07-21-2022 End: 07-22-[address] NATO GARCIA . Facility:H1 Start: 07-01-2022 End: 07-01-[address] NATO GARCIA . Facility:H1 Start: 07-01-2022 End: 07-02-[address] NATO GARCIA . Facility:H1 Start: 04-24-2022 End: 04-24-2022 Patient encounter procedure DO Bret Song Work Phone: [facility] [address] Start: 01-31-2022 End: 07-14-[address] ADITYA MOORE Facility:H1 Procedures Date Procedure Procedure Detail Performing Clinician Start: 06-29-2024 Hemoglobin A1c/Hemoglobin.total in Blood Asia Vance MD Work Phone: Start: 05-25-2024 Radex shoulder compl ete minimum 2 views Iwona Escalante DO Work Phone: Start: 05-04-2024 Basic metabolic pane l calcium total Iwona Escalante DO Work Phone: Start: 03-11-2024 Arthroscopy of knee with meniscus repair KRISTINE ANNABELLA Start: 04-01-2023 H/O: hysterectomy H/O: hysterectomy Vivek OCHOA Work Phone: Start: 01-20-2023 MRI of head DO Bret Panda rader Work Phone: Start: 01-19-2023 CT angiography of head DO Bret Song Work Phone: Start: 01-19-2023 CT angiography of ne ck vessels DO Bret Song Work Phone: Start: 01-19-2023 CT of head without contrast DO Bret Duncan Work Phone: Start: 08-30-2021 Stability of ankle (observable entity) Baseleslie Dorsey Start: 06-02-2012 End: 07-05-2023 H/O: surgery S/P plastic surgery Vivek OCHOA Work Phone: Abdomen Basem Dorsey Arthroscopy Basem Dorsey Augmentation mammoplasty Heather abbi Song Work Phone: Fluid-filled abdomen (disorder) Basem Dorsey H/O: hysterectomy Basem Hadd ad History of augmentat ion of breast Basem Dorsey History of tonsillectomy Bas em Dorsey Hysterectomy Bret Song Work Phone: Comment on above: had to have emergenc y surgey for water tunnels; Kidney operation Bret Chiu elsi Work Phone: Comment on above: stents; Ligation of fallopia n tube Bret Song Work Phone: Recurrent kidney stone Vivienne Dorsey Suction assisted lipectomy of abdomen Bret Song Work Phone: Comment on above: had to have corectiv e surgery after initial surgery; Tonsillectomy Bret Song Work Phone: Plan of Treatment Date Care Activity Detail Author Start: 06-29-2027 Diabetes Screening Diabetes Screening [facility] Start: 2027 Shingles (RZV) Vaccine (1 of 2) Shingles (RZV) Vaccine (1 of 2) [facility] Start: 11-29-2024 End: 11-29-2024 Patient encounter procedure 11/29/2024 3:00 PM EDT Office Visit [facility] OB [address] [phone] Nato Garcia, DO [address] [place] [address] [facility] Start: 10-14-2024 End: 10-14-2024 Follow-up encounter 10/14/2024 11:30 AM EST [facility] Endocrinology [address] [place] [address] Asia Vance MD [address] [place] [address] 3 month follow up Endocrinology Comment on above: 3 month follow up Start: 10-05-2024 End: 10-05-2024 Social Work 10/05/2024 5:00 PM EST Social Work [facility] [address] [place] [phone] Kaylee Guerra, [facility] [address] [place] [address] [facility] Start: 09-20-2024 End: 09-20-2024 Patient encounter procedure 09/20/2024 3:00 PM EST Office Visit [facility] OB [address] [place] [address] Nato Garcia DO [address] [place] [address] [facility] OB Start: 09-07-2024 End: 09-07-2024 Social Work 09/07/2024 5:00 PM EST Social Work [facility] [address] [place] [phone] Kaylee Guerra, [facility] [address] [place] [address] [facility] Start: 08-30-2024 End: 08-30-2024 Social Work 08/30/2024 4:00 PM EST Social Work [facility] [address] [place] [address] Kaylee Guerra, [facility] [address] [place] [address] [facility] Start: 08-15-2024 End: 08-15-2024 Patient encounter procedure [facility] OB Comment on above: Arrived Start: 08-15-2024 End: 08-15-2025 C-peptide C-peptide Lab Routine Hormone disorder Expected: 08/15/2024 (Approximate), Expires: 08/15/2025 [facility] Comment on above: Expected: 08/15/2024 (Approximate), Expi res: 08/15/2025 Start: 08-15-2024 End: 08-15-2025 Cortisol free Cortisol, free Lab Routine Hormone disorder Expected: 08/15/2024 (Approximate), Expires: 08/15/2025 [facility] Comment on above: Expected: 08/15/2024 (Approximate), Expi res: 08/15/2025 Start: 08-15-2024 End: 08-15-2025 Glucose [Mass/volume] in Serum or Plasma Glucose, random Lab Routine Hormone disorder Expected: 08/15/2024 (Approximate), Expires: 08/15/2025 [facility] Comment on above: Expected: 08/15/2024 (Approximate), Expi res: 08/15/2025 Start: 08-15-2024 End: 08-15-2025 Insulin, total Insulin, total Lab Routine Hormone disorder Expected: 08/15/2024 (Approximate), Expires: 08/15/2025 [facility] Comment on above: Expected: 08/15/2024 (Approximate), Expi res: 08/15/2025 Start: 08-15-2024 End: 10-16-2025 MG Breast - bilateral Screening Bilateral screening mammogram Imaging Routine Breast cancer screening by mammogram Expected: 08/15/2024 (Approximate), Expires: 10/16/2025 [facility] Comment on above: Expected: 08/15/2024 (Approximate), Expi res: 10/16/2025 Start: 08-15-2024 End: 08-15-2025 Serotonin serum Serotonin serum Lab Routine Hormone disorder Expected: 08/15/2024 (Approximate), Expires: 08/15/2025 [facility] Comment on above: Expected: 08/15/2024 (Approximate), Expi res: 08/15/2025 Start: 08-15-2024 End: 08-15-2025 Thyroglobulin Thyroglobulin Lab Routine Hormone disorder Expected: 08/15/2024 (Approximate), Expires: 08/15/2025 [facility] Comment on above: Expected: 08/15/2024 (Approximate), Expi res: 08/15/2025 Start: 08-15-2024 End: 08-15-2025 Thyroglobulin Antibody Thyroglobulin Antibody Lab Routine Hormone disorder Expected: 08/15/2024 (Approximate), Expires: 08/15/2025 [facility] Comment on above: Expected: 08/15/2024 (Approximate), Expi res: 08/15/2025 Start: 08-15-2024 End: 08-15-2025 Thyrotropin [Units/volume] in Serum or Plasma [facility] Comment on above: Ordered: 08/15/2024 Expected: 08/15/2024 (Approximate), Expires: 08/15/2025 Start: 07-13-2024 End: 07-13-2024 Social Work 07/13/2024 5:45 PM EST Social Work [facility] [address] [place] [address] Kaylee Guerra, [facility] [address] [place] [address] [facility] Start: 06-29-2024 End: 09-28-2024 ALDOSTERONE/DIRECT RENIN RATIO ALDOSTERONE/DIRECT RENIN RATIO Lab Routine Hypertension, unspecified type Expected: 06/29/2024, Expires: 09/28/2024 [facility] Comment on above: Expected: 06/29/2024, Expires: Start: 06-29-2024 End: 09-28-2024 Comprehensive metabolic 2000 panel - Serum or Plasma COMPREHENSIVE METABOLIC PANEL Lab Routine Type 2 diabetes mellitus without complication, without long-term current use of insulin ([facility]) Hypertension, unspecified type Expected: 06/29/2024, Expires: 09/28/2024 [facility] [employer] Work Phone: Comment on above: Expected: 06/29/2024, Expires: Start: 06-29-2024 End: 09-28-2024 Cortisol [Mass/volume] in Serum or Plasma --post dose dexamethasone CORTISOL SUPRES POST Lab Routine Hypertension, unspecified type Expected: 06/29/2024, Expires: 09/28/2024 [facility] Comment on above: Expected: 06/29/2024, Expires: Start: 06-29-2024 End: 09-28-2024 DEXAMETHASONE DEXAMETHASONE Lab Routine Hypertension, unspecified type Expected: 06/29/2024, Expires: 09/28/2024 [facility] Comment on above: Expected: 06/29/2024, Expires: Start: 06-29-2024 End: 09-28-2024 Follitropin [Units/volume] in Serum or Plasma FOLLICLE STIMULATING HORMONE Lab Routine History of PCOS Expected: 06/29/2024, Expires: 09/28/2024 [facility] Comment on above: Expected: 06/29/2024, Expires: Start: 06-29-2024 End: 09-28-2024 Lipid 1996 panel - Serum or Plasma LIPID PANEL BASIC Lab Routine Type 2 diabetes mellitus without complication, without long-term current use of insulin (HCC) Expected: 06/29/2024, Expires: 09/28/2024 [facility] Comment on above: Expected: 06/29/2024, Expires: Start: 06-29-2024 End: 09-28-2024 Microalbumin/Creatinine [Mass Ratio] in Urine ALBUMIN/CREATININE RATIO, URINE Lab Routine Type 2 diabetes mellitus without complication, without long-term current use of insulin (HCC) Expected: 06/29/2024, Expires: 09/28/2024 [facility] Comment on above: Expected: 06/29/2024, Expires: Start: 06-29-2024 End: 09-28-2024 Thyrotropin [Units/volume] in Serum or Plasma THYROID STIMULATING HORMONE Lab Routine Acquired hypothyroidism Expected: 06/29/2024, Expires: 09/28/2024 [facility] Comment on above: Expected: 06/29/2024, Expires: Start: 06-29-2024 End: 09-28-2024 Thyroxine (T4) free [Mass/volume] in Serum or Plasma T4 FREE/FREE THYROXINE Lab Routine Acquired hypothyroidism Expected: 06/29/2024, Expires: 09/28/2024 [facility] Comment on above: Expected: 06/29/2024, Expires: Start: 06-22-2024 End: 06-22-2024 Social Work 06/22/2024 5:00 PM EDT Social Work [facility] [address] [place] [address] Kaylee Guerra, [facility] [address] [place] [address] [facility] Start: 05-31-2024 End: 05-31-2024 Social Work 05/31/2024 5:00 PM EDT Social Work [facility] [address] [place] [phone] Kaylee Guerra, [facility] [address] [place] [address] [facility] Start: 05-25-2024 End: 05-25-2024 Patient encounter procedure 05/25/2024 9:15 AM EDT Office Visit [facility] [address] [place] [phone] Iwona Escalante, DO [address] [place] [address] [facility] Start: 05-13-2024 End: 05-13-2024 Patient encounter procedure 05/13/2024 1:30 PM EDT Procedure Visit [facility] Iwona Escalante, DO [address] [place] [address] [facility] Start: 05-10-2024 End: 05-10-2024 Social Work 05/10/2024 7:00 PM EDT Social Work [facility] [address] [place] [phone] Kaylee Guerra, [facility] [address] [place] [address] [facility] Start: 05-04-2024 End: 05-04-2024 Patient encounter procedure [facility] Comment on above: Left shoulder pain, unspecified chronici ty (Primary Dx) Start: 04-27-2024 End: 04-27-2024 Professional / ancillary services management 04/27/2024 12:30 PM EDT Ancillary Procedure [facility] MR [address] [place] [address] [facility] Start: 04-24-2024 COVID-19 Vaccine ( season) COVID-19 Vaccine ( season) [facility] Start: 04-24-2024 [facility]enza [facility] Start: 01-07-2024 Hemolytic complement CH50 level [facility] Start: 09-08-2023 Hemolytic complement CH50 [facility] Start: 05-27-2023 Hemolytic complement CH50 [facility] Start: 05-12-2023 NPV, Provider: Estrellita Mirza, Status: Pen, Time: 3:00 PM NPV, Provider: Estrellita Mirza, Status: Pen, Time: 3:00 PM [id number] [address] Work Phone: Start: 01-21-2023 [facility] Start: 01-20-2023 Referral to psychiatrist [facility] Start: 01-19-2023 Referral to neurologist [facility] Start: 01-19-2023 Hospital admission [facility] Start: 01-19-2023 CT angiography of head [facility] Start: 01-19-2023 CT angiography of neck vessels [facility] Start: 01-19-2023 CT Head WO contrast [facility] Start: 01-19-2023 CT of head without contrast CT head stroke alert wo con [facility] Start: 07-29-2022 Hemolytic complement CH50 [facility] Start: 05-24-2022 Influenza vaccination Influenza Vaccine (#1) [facility] Start: 2022 Cholesterol [Mass/volume] in Serum or Plasma Cholesterol [facility] Start: 2022 Lipid panel [facility] Start: 2022 Screening for malignant neoplasm of colon [facility] Start: 04-21-2022 Urine microalbumin profile DTaP,Tdap,Td Vaccine (2 - Td or Tdap) [facility] Start: 06-21-2020 Screening for malignant neoplasm of breast Mammogram Screening [facility] Start: 2017 Screening for malignant neoplasm of breast Mammography [facility] Start: 05-19-2012 Hepatitis B Vaccine (2 of 3 - 19+ 3-dose series) Hepatitis B Vaccine (2 of 3 - 19+ 3-dose series) [facility] Start: 1998 Screening for malignant neoplasm of cervix [facility] Start: 1996 Hepatitis A (HAV) Vaccine (optional start 19+ years) Hepatitis A (HAV) Vaccine (optional start 19+ years) [facility] Start: 1996 Hepatitis B vaccination Hepatitis B (HBV) Vaccine (1 of 3 - 19+ 3-dose series) [facility] Start: 1996 Shingrix Vaccine (1 of 2) Shingrix Vaccine (1 of 2) [facility] Start: 1996 Tetanus vaccination Tetanus (Td or Tdap) Booster [facility] Start: 1995 Hepatitis C screening [facility] Start: 1995 HIV screening HIV Screening [facility] Start: 1995 Tetanus + diphtheria + acellular pertussis vaccine (product) Tdap [facility] Start: 1992 HIV screening [facility] Test [facility] Start: 1988 Screening for malignant neoplasm of cervix Cervical Cancer Screening [facility] Start: 1983 Pneumococcal vaccination Pneumococcal Vaccine (1 of 2 - PCV) [facility] Start: 1982 Covid-19 Vaccine (#1) Covid-19 Vaccine (#1) [facility] Start: 1977 COVID-19 Vaccine (#1) COVID-19 Vaccine (#1) [facility] Start: 1977 Screening for malignant neoplasm of colon Colonoscopy [facility] Complement C3 [Mass/volume] in Serum or Plasma [facility] Work Phone: Complement C3 [Mass/volume] in Serum or Plasma [facility] Complement C3 [Mass/volume] in Serum or Plasma [facility] Complement C4 [Mass/volume] in Serum or Plasma [facility] Work Phone: Complement C4 [Mass/volume] in Serum or Plasma [facility] Complement C4 [Mass/volume] in Serum or Plasma [facility] DHEA-sulfate DHEA-sulfate Lab Routine Hormone disorder Ordered: 08/15/2024 [facility] Comment on above: Ordered: 08/15/2024 Estradiol Estradiol Lab Ro utine Hormone disorder Ordered: 08/15/2024 [facility] Work Phone: Comment on above: Ordered: 08/15/2024 Estrone Estrone Lab Rout ine Hormone disorder Ordered: 08/15/2024 [facility] Comment on above: Ordered: 08/15/2024 Ferritin [Mass/volum e] in Serum or Plasma Ferritin Lab Routine Hormone disorder Ordered: 08/15/2024 [facility] Comment on above: Ordered: 08/15/2024 Hemoglobin A1c/Hemoglobin.total in Blood Hemoglobin A1c Lab Routine Hormone disorder Ordered: 08/15/2024 [facility] Comment on above: Ordered: 08/15/2024 Hemolytic complement CH50 level [facility] Work Phone: Patient referral [facility] Work Phone: Progesterone Progesterone Lab Routine Hormone disorder Ordered: 08/15/2024 [facility] Comment on above: Ordered: 08/15/2024 Sex hormone binding globulin Sex hormone binding globulin Lab Routine Hormone disorder Ordered: 08/15/2024 [facility] Comment on above: Ordered: 08/15/2024 T3, reverse T3, reverse Lab Routine Hormone disorder Ordered: 08/15/2024 [facility] Comment on above: Ordered: 08/15/2024 TESTOSTERONE, FREE TESTOSTERONE, FREE Lab Routine Hormone disorder Ordered: 08/15/2024 [facility] Comment on above: Ordered: 08/15/2024 Testosterone, free, total Testos terone, free, total Lab Routine Hormone disorder Ordered: 08/15/2024 [facility] Comment on above: Ordered: 08/15/2024 Thyroid peroxidase antibody Thyroid peroxidase antibody Lab Routine Hormone disorder Ordered: 08/15/2024 [facility] Comment on above: Ordered: 08/15/2024 Thyroxine (T4) free [Mass/volume] in Serum or Plasma T4, free Lab Routine Hormone disorder Ordered: 08/15/2024 [facility] Comment on above: Ordered: 08/15/2024 Triiodothyronine (T3 ) Free [Mass/volume] in Serum or Plasma T3, free Lab Routine Hormone disorder Ordered: 08/15/2024 [facility] Comment on above: Ordered: 08/15/2024 Vitamin D 1,25 dihydroxy Vitamin D 1,25 dihydroxy Lab Routine Hormone disorder Ordered: 08/15/2024 [facility] Comment on above: Ordered: 08/15/2024 [facility] Immunizations Immunization Date Immunization Notes Care Provider Josef velazco 06-06-2019 influenza virus vaccine, unspecified formulation Baseleslie Dorsey [facility] 06-06-2019 influenza, seasonal, injectable Vivek OCHOA Work Phone: [facility] 04-21-2012 hepatitis B vaccine, adult dosage Basem Dorsey [facility] 04-21-2012 tetanus toxoid, redu froylan diphtheria toxoid, and acellular pertussis vaccine, adsorbed Basem Dorsey [facility] 06-05-2009 seasonal influenza, intradermal, preservative free Vivek OCHOA Work Phone: [facility] Payers Date Payer Category Payer Medicare [id number] 2019 [facility] [id number] 2019 Unknown 2015 Medicaid [id number]. [id number] 2015 Medicare [id number] [id number]. [id number] 2015 Medicaid [id number] 2015 Medicare [id number] 1977 Unknown [id number] 2.16.840.1.335602.3.579.2. 593 1977 Unknown [id number] 2.16.840.1.474945.3.579.2. 593 1977 Unknown [id number] 2.16.840.1.617655.3.579.2. 593 1977 Unknown [id number] 2.16.840.1.895381.3.579.2. 593 1977 Unknown [id number] 2.16.840.1.217847.3.579.2. 593 1977 Unknown [id number] 2.16.840.1.717946.3.579.2. 356 1977 Unknown [id number] 2.16.840.1.101737.3.579.2. 356 1977 Unknown [id number] 2.16.840.1.680855.3.579.2. 727 1977 Unknown [id number] 2.16.840.1.022031.3.579.2. 727 1977 Unknown [id number] 2.16.840.1.369582.3.579.2. 727 1977 Unknown [id number] 2.16.840.1.976432.3.579.2. 727 1977 Unknown [id number] 2.16.840.1.832820.3.579.2. 727 1977 Unknown [id number] 2.16.840.1.976023.3.579.2. 727 1977 Unknown [id number] 2.16.840.1.787883.3.579.2. 727 1977 Unknown [id number] 2.16.840.1.457705.3.579.2. 1977 Unknown [id number] 2.16.840.1.416550.3.579.2. 7 1977 Unknown [id number] 2.16.840.1.252321.3.579.2. 1258 1977 Unknown [id number] 2.16.840.1.190422.3.579.2. 1258 1977 Unknown [id number] 2.16.840.1.577362.3.579.2. 1258 1977 Unknown [id number] 2.16.840.1.753082.3.579.2. 1258 1977 Unknown [id number] 2.16.840.1.901048.3.579.2. 1258 1977 Unknown [id number] 2.16.840.1.685720.3.579.2. 1258 1977 Unknown [id number] 2.16.840.1.398760.3.579.2. 1258 1977 Unknown [id number] 2.16.840.1.728609.3.579.2. 1258 1977 Unknown [id number] 2.16.840.1.027446.3.579.2. 1258 1977 Unknown [id number] 2.16.840.1.349590.3.579.2. 1258 1977 Unknown [id number] 2.16.840.1.625344.3.579.2. 1258 1977 Unknown [id number] 2.16.840.1.152391.3.579.2. 1258 1977 Unknown [id number] 2.16.840.1.310680.3.579.2. 1258 1977 Unknown [id number] 2.16.840.1.227696.3.579.2. 9 1977 Unknown [id number] 2.16.840.1.248391.3.579.2. 9 1977 Unknown [id number] 2.16.840.1.784309.3.579.2. 9 1977 Unknown [id number] 2.16.840.1.972644.3.579.2. 9 1977 Unknown [id number] 2.16.840.1.851292.3.579.2. 9 1977 Unknown [id number] 2.16.840.1.816968.3.579.2. 9 1977 Unknown [id number] 2.16.840.1.838174.3.579.2. 9 1977 Unknown [id number] 2.16.840.1.158751.3.579.2. 727 1977 Unknown [id number] 2.16.840.1.945391.3.579.2. 727 1977 Unknown [id number] 2.16.840.1.865792.3.579.2. 727 1959 Self-pay [id number] 1959 Unknown [id number] Medicaid [employer] [id number] Social History Date Type Detail Facility Start: 08-04-2019 End: 01-21-2023 Tobacco smoking status MNIS Smoker (finding) [facility] Start: 1977 Sex Assigned At Female F [facility] Start: 1977 Sex Assigned At Not [facility] file [facility] Start: 05-22-2023 End: 01-10-2024 Being A Social Drinker Being A Social Drinker [facility] Start: 03-22-2024 End: 06-21-2024 Tobacco smoking status Light tobacco smoker (finding) [facility] Start: 05-22-2023 End: 01-10-2024 Sex Assigned At Female [facility] Start: 11-02-2023 End: 05-04-2024 Tobacco smoking status NHIS Ex-smoker [facility] Start: 1990 End: 2016 History of tobacco use Cigarette Smoker [facility] Start: 11-02-2023 End: 05-04-2024 Tobacco use and exposure Smokeless tobacco non-user [facility] Start: 05-25-2024 End: 08-15-2024 Alcoholic beverage intake Ex-drinker (finding) [facility] Do you belong to any clubs or organizations such as mandaeism groups, unions, fraternal or athletic groups, or school groups? No [facility] Are you now , , , , never or living with a partner? [facility] How often to you hav e a drink containing alcohol? 2-4 times a month [facility] How many standard drinks containing alcohol do you have on a typical day? 3 or 4 [facility] How often do you hav e 6 or more drinks on 1 occasion? Never [facility] How hard is it for y ou to pay for the very basics like food, housing, medical care, and heating Somewhat hard [facility] Do you feel stress - tense, restless, nervous, or anxious, or unable to sleep at night because your mind is troubled all the time - these days [OSQ] Very much [facility] (I/We) worried wheth er (my/our) food would run out before (I/we) got money to buy more. Sometimes true [facility] In the past 12 month s, was there a time when you were not able to pay the mortgage or rent on time? Yes [facility] Start: 01-13-2024 Alcohol Comment Maybe once a month [facility] Start: 12-07-2023 Gender identity Identifies as female gender (finding) [facility] Start: 06-15-2024 Tobacco smoking status Heavy t obacco smoker (finding) [facility] Start: 1990 Tobacco smoking stat us NHIS Occasional tobacco smoker [facility] Start: 06-29-2024 Alcoholic beverage intake Current non-drinker of alcohol (finding) [facility] Start: 06-29-2024 Tobacco Comment social smoker [facility] Start: 09-08-2016 End: 07-07-2024 Sex Female (finding) [facility] NEGATED: Highlighted row Denies Drug Use Denies Drug Use TI-Ujnnfnsak-Tklgxbp e B 101 Work Phone: Comment on above: noel in [place] hool; NEGATED: Highlighted rowStart: NINF History of tobacco use Passive smoker [facility] Medical Equipment Procedure Code Equipment Code Equipment Origin al Text Equipment Identifier Dates ANKLE LATERAL STABILIZATION Escalante DO, Iwona T 08/30/21 Unknown Ankle L FDA Start: 08-30-2021 ANKLE LATERAL STABILIZATION Escalante DO, Iwona T 08/30/21 Unknown Ankle L FDA Start: 08-30-2021 ANKLE LATERAL STABILIZATION Escalante DO, Iwona T 08/30/21 Unknown Ankle L FDA Start: 08-30-2021 [id number] Start: 12-31-2023 ANKLE LATERAL STABILIZATION Escalante DO, Iwona T 08/30/21 Unknown Ankle L FDA Start: 08-30-2021 ANKLE LATERAL STABILIZATION Escalante DO, Iwona T 08/30/21 Unknown Ankle L FDA Start: 08-30-2021 ANKLE LATERAL STABILIZATION Escalante DO, Iwona T 08/30/21 Unknown Ankle L FDA Start: 08-30-2021 ANKLE LATERAL STABILIZATION Escalante DO, Iwona T 08/30/21 Unknown Ankle L FDA Start: 08-30-2021 ANKLE LATERAL STABILIZATION Escalante DO, Iwona T 08/30/21 Unknown Ankle L FDA Start: 08-30-2021 ANKLE LATERAL STABILIZATION Escalante DO, Iwona T 08/30/21 Unknown Ankle L FDA Start: 08-30-2021 Nnk-Ef-N-Kind Im plant - [id number] Start: 01-18-2015 Comment on above: Description: [id number] s mooth round moderate profile breast implant Amn-Xi-V-Kind Im plant - [id number] Start: 01-18-2015 Comment on above: Description: [id number] s mooth round moderat profile breast implant Goals Date Patient Goal Desired Activity /State Functional Status Date Assessment Result Facility 01-21-2023 Functional status Patient at Baseline [facility] Work Phone: Mental Status Date Assessment Result Facility 01-21-2023 Cognitive function Cognitive Sta tus Patient at Baseline [facility] Work Phone: Clinical Notes 01-20-2023 to 08-15-2024 Susan Herrera LPN - 08/15/2024 2:10 PM ESTPatient Asia Bella MD - 06/29/2024 8:57 AM Tiarra Escalante DO - 05/25/2024 9:15 AM SONTVane Rhoades - 05/04/2024 9:45 AM EDT Note Date & Type Note Facility 08-15-2024 History of Present illness Narrative Reason for Appointment: Patient ID: Johanna Shannon is a 49 y.o. female who presents for hormones Patient presents today for Consult appointment. MEDICATIONS Current Outpatient Medications Medication Instructions Abilify 5 mg, Daily ALPRAZolam (XANAX) 1 mg, Oral, 2 times daily PRN amphetamine-dextroamphetamine XR (Adderall XR) 30 MG 24 hr capsule 30 mg, Oral, Every 24 hours baclofen (Lioresal) 10 MG tablet take 1 tablet by mouth daily if needed for muscle spasm Blood Glucose Monitoring Suppl (ONE TOUCH ULTRA MINI) w/Device kit 1 strip, 2 times daily busPIRone (BUSPAR) 15 mg, 3 times daily celecoxib (CELEBREX) 200 mg, 2 times daily cyanocobalamin (Vitamin B-12) 1000 MCG/ML injection As needed cyclobenzaprine (FLEXERIL) 10 mg, Every 8 hours PRN folic acid (FOLVITE) 1,000 mcg, Daily furosemide (Lasix) 20 MG tablet Every 24 hours gabapentin (NEURONTIN) 400 mg, Oral, 2 times daily glucose blood ([employer]uch Ultra Test) test strip DIRECTED IN VITRO hydroxychloroquine (Plaquenil) 200 MG tablet 1 tablet, 2 times daily hydrOXYzine pamoate (VISTARIL) 25 mg ibuprofen 600 MG tablet 1 tablet, Every 6 hours levothyroxine (Synthroid, Levoxyl) 50 MCG tablet Every 24 hours Magnesium 125 MG capsule Take by mouth Methotrexate Sodium (methotrexate PF) 1 GM/40ML chemo syringe metoclopramide (Reglan) 10 MG tablet 2 times daily Mounjaro 12.5 mg, Subcutaneous, Every 7 days naltrexone (DEPADE) 6 mg, Daily olmesartan (BENIcar) 20 MG tablet take 1 tablet by mouth once daily as directed omeprazole (PRILOSEC) 20 mg, Daily Nrfnoorajjefkki-SC-VA (CAPMIST DM PO) Take by mouth SUMAtriptan (IMITREX) 20 mg, One Nostril, Once as needed tiZANidine (ZANAFLEX) 4 mg, Nightly PRN traZODone (DESYREL) 75 mg, Oral, Nightly verapamil SR (CALAN SR) 120 mg, Oral, Nightly, Do not crush or chew. ALLERGIES Allergies Allergen Reactions Morphine Anaphylaxis Penicillin G Diarrhea, Hives and Itching Propoxyphene Hives, Unknown and Itching Rizatriptan Unknown Tetracycline Nausea Only PROBLEMS Active Ambulatory Problems Diagnosis Date Noted Abnormal weight gain 04/01/2023 Ankle instability 04/01/2023 THEO (generalized anxiety disorder) [place] 08/24/2007 Asthma ([facility] 08/24/2007 Attention deficit hyperactivity disorder (ADHD), predominantly inattentive type ([facility] 04/01/2023 Deviated nasal septum 04/01/2023 Fibromyalgia 04/01/2023 Chronic sinusitis 04/01/2023 Frontal sinusitis 04/01/2023 Gastroesophageal reflux disease 04/01/2023 H/O: hysterectomy 04/01/2023 Hyperlipidemia ([facility]) 08/24/2007 Hypothyroidism ([facility]) 04/01/2023 Insulin resistance 04/01/2023 Irritable bowel syndrome 04/01/2023 Migraine ([facility]) 04/01/2023 PCOS (polycystic ovarian syndrome) 04/01/2023 Type 2 diabetes mellitus with unspecified complications ([facility]) 04/01/2023 Uterine cancer ([facility]) 04/01/2023 Organic anxiety syndrome 06/18/2016 Severe episode of recurrent major depressive disorder, without psychotic features ([facility]) ([facility] 07/05/2023 Resolved Ambulatory Problems Diagnosis Date Noted Anxiety 04/01/2023 Depressive disorder ([facility]/HCC) 08/24/2007 Chronic rhinitis 04/01/2023 Nasal turbinate hypertrophy 04/01/2023 Sprain of anterior talofibular ligament of left ankle 04/01/2023 Encounter for cosmetic procedure 06/18/2016 Moderate smoker (20 or less per day) 06/18/2016 S/P plastic surgery 06/02/2012 Past Medical History: Diagnosis Date Abnormal Pap smear of cervix ADHD ([facility]) 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[facility]) Anxiety and depression ([facility]) Arthritis Binge eating disorder Chronic rhinosinusitis Encounter for insertion of Mirena IUD 2006 Encounter for insertion of Mirena IUD 2005 Fibromyalgia syndrome Fracture of ankle 1996 GERD (gastroesophageal reflux disease) H/O lithotripsy 2000 H/O primary hypertension History of being hospitalized History of hysterectomy History of IBS History of lithotripsy 2000 History of medical problems History of medical problems Hormone imbalance Hx of being hospitalized Hx of being hospitalized Hypothyroidism (acquired) ([facility]) Precancerous changes of the cervix PTSD (post-traumatic stress disorder) ([facility]) Stroke ([facility]) Thyroid dysfunction ([facility]) Type 2 diabetes mellitus ([facility]) HISTORY PAST MEDICAL HISTORY SOCIAL HISTORY Past Medical History: Diagnosis Date Abnormal Pap smear of cervix Abnormal weight gain ADHD (CMS/HCC) 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[facility]) Anxiety and depression ([facility]) Arthritis Binge eating disorder Chronic rhinosinusitis Chronic sinusitis Encounter for insertion of Mirena IUD 2006 Encounter for insertion of Mirena IUD 2005 Fibromyalgia syndrome Fracture of ankle 1996 GERD (gastroesophageal reflux disease) H/O lithotripsy 2000 w/ stents H/O primary hypertension History of being hospitalized Medical Overdose / Seizure Clinic / 3 Mini TIA History of hysterectomy History of IBS History of lithotripsy 2001 Lithotripsy w/stents History of medical problems Precancerous changes to cervix History of medical problems Ulcers Hormone imbalance Hx of being hospitalized seizure clinic Hx of being hospitalized 3 mini TIA Hyperlipidemia ([facility]/HCC) Hypothyroidism (acquired) ([facility]) Migraine ([facility]) Moderate smoker (20 or less per day) 06/18/2016 Nasal turbinate hypertrophy 04/01/2023 PCOS (polycystic ovarian syndrome) Precancerous changes of the cervix PTSD (post-traumatic stress disorder) ([facility]) S/P plastic surgery 06/02/2012 Sprain of anterior talofibular ligament of left ankle 04/01/2023 Stroke ([facility]) Mini Stroke Thyroid dysfunction (CMS/HCC) Type 2 diabetes mellitus (CMS/[facility]) Social History Tobacco Use Smoking status: Former Current packs/day: 0.00 Types: Cigarettes Passive exposure: Never Smokeless tobacco: Never Vaping Use Vaping status: Never Used Substance Use Topics Alcohol use: Not Currently Comment: Maybe once a month Drug use: Never FAMILY HISTORY Family History Problem Relation Name Age of Onset Diabetes Mother Cb Hypertension Mother Cb Hypothyroidism Mother Cb Cirrhosis Mother Cb Alzheimer's disease Mother Cb Bipolar disorder Mother Cb manic high and manic lows Dementia Mother Cb Diabetes Father Nely Hypertension Father Nely Heart disease Father Nely No Known Problems Brother 2 brothers Rheumatologic disease Brother Leticia No Known Problems Son 3 sons SURGICAL HISTORY Past Surgical History: Procedure Laterality Date ANKLE LIGAMENT RECONSTRUCTION 08/30/2021 BELT ABDOMINOPLASTY 06/2015 ENDOMETRIAL ABLATION FEMINIZING AUGMENTATION MAMMOPLASTY 06/2015 GYNECOLOGIC CRYOSURGERY Precancerous changes to cervix HYSTERECTOMY 05/07/2020 still has both ovaries KIDNEY STONE SURGERY 2014 KNEE SURGERY Right 03/11/2024 R knee scope- MTP PAP SMEAR 07/01/2022 negative SALPINGECTOMY Bilateral SHOULDER ARTHROSCOPY Left 05/13/2024 w/MTP TONSILLECTOMY 1996 TUBAL LIGATION REVIEW OF SYSTEMS Review of Systems: Review of Systems All other systems reviewed and are negative. OBJECTIVE Objective: Physical Exam Constitutional: Appearance: Normal appearance. She is well-developed. Cardiovascular: Rate and Rhythm: Normal rate and regular rhythm. Pulmonary: Effort: Pulmonary effort is normal. Breath sounds: Normal breath sounds. Abdominal: General: Bowel sounds are normal. There is no distension. Palpations: Abdomen is soft. Tenderness: There is no abdominal tenderness. There is no guarding or rebound. Musculoskeletal: General: No swelling. Normal range of motion. Right lower leg: No edema. Left lower leg: No edema. Neurological: Mental Status: She is alert and oriented to person, place, and time. Skin: General: Skin is warm and dry. Psychiatric: Mood and Affect: Mood normal. Behavior: Behavior normal. Vitals and nursing note reviewed. Exam conducted with a punch press setter present. Vitals: Estimated body mass index is 33.27 kg/m as calculated from the following: Height as of 10/2/24: 5' 4 . Weight as of this encounter: 193 lb 12.8 oz. BP: 110/70 No LMP recorded. Patient has had a hysterectomy. ASSESSMENT & PLAN ICD-10-CM 1. Hormone imbalance E34.9 2. Hormone disorder E34.9 Estradiol Estrone Cortisol, free DHEA-sulfate Sex hormone binding globulin Insulin, total Serotonin serum TSH T4, free T3, reverse Progesterone Vitamin D 1,25 dihydroxy Ferritin T3, free Thyroglobulin Thyroglobulin Antibody Thyroid peroxidase antibody T4 TESTOSTERONE, FREE Testosterone, free, total Hemoglobin A1c Glucose, random C-peptide Cortisol, free Insulin, total Serotonin serum Thyroglobulin Thyroglobulin Antibody T4 Glucose, random C-peptide 3. Breast cancer screening by mammogram Z12.31 Bilateral screening mammogram Bilateral screening mammogram Patient presents today to review labs that were drawn by PCP. Discussed symptoms with patient and she was previously using Buderer for hormone management and then stopped. Patient would like to restart treatment. Advised patient to have labs drawn and will be reviewed at appointment in August to be resent to Buderer to start back with hormone management. Patient also given order to have mammogram done prior to appointment in August as well. Documented by Susan Herrera LPN on behalf of: Nato Garcia DO documented in this encounter [facility] 06-29-2024 Instructions Asia Vance MD - 06/29/2024 9:58 AM EST Dexamethasone suppression test: Take 1 mg of dexamethasone at bedtime followed by 7:00- 8:00 AM blood draw cortisol and dexamethasone level. I placed the orders for blood work and sent the prescription for the one tablet of dexamethasone to your pharmacy. Have your blood work done fasting. You could have all of your labs done at the same time. documented in this encounter [facility] 06-29-2024 Note HNO ID: [id number] Author: ASIA VANCE MD Service: ? Author Type: Physician Type: Progress Notes Filed: 06/29/2024 22:06 Note Text: HISTORY OF PRESENT ILLNESS: Johanna Shannon is presenting for endocrine issues/general endocrine evaluation. Requesting provider: None, self-referred. Patient is concerned about fatigue, PCOS, thyroid issues, abnormal weight gain. Patient reports major weight gain over 18 month ([id number]), about 160-170 lb. Patient has diabetes diagnosed around age 47 years. She has been on Mounjaro intermittently for the past 2 years, continuous for the past 6 months. Current Mounjaro dosage is 12.5 mg weekly. Patient reports maximum weight of 289 lb by 2020. Today's weight is 193 lb. Patient has hypothyroidism diagnosed around age 40-42 years. She has been on levothyroxine 50 mcg daily since diagnosis. Patient had hysterectomy in 2019 for fibroids, she still has one ovary. Hypertension was diagnosed about 2 years ago. Additional concerns are mood swings, fatigue, difficulty sleep. She has worsening depression. She is concerned about easy bruising. Review of Systems Constitutional: Positive for fatigue and night sweats. Eyes: Positive for visual disturbance. Cardiovascular: No palpitations Gastrointestinal: Positive for nausea (Still has nausea occasionally, not worsened by Mounjaro. She takes Reglan), diarrhea and constipation. Negative for vomiting. Neurological: Positive for dizziness (when standing up). Endo/Heme/Allergies: Negative for polydipsia. PAST MEDICAL HISTORY Diagnosis Date Anxiety Cervical cancer (HCC) 2004 Depression Diabetes mellitus (HCC) 2021 Essential hypertension 2021 Fibroid 2018 s/p hysterectomy Fibromyalgia PAST SURGICAL HISTORY Procedure Laterality Date TOTAL ABDOM HYSTERECTOMY 2018 She still has right ovary Current Medications 06/29/2024 DIABETES THERAPIES Medication Dosage Pharm Subclass tirzepatide (MOUNJARO) 12.5 mg/0.5 mL pen injector Inject 12.5 mg subcutaneously one time a week. Antihyperglycemic - Dual GIP and GLP-1 Receptor Agonists CARDIOVASCULAR Medication Dosage Pharm Subclass olmesartan (BENICAR) 20 mg tablet Take 1 tablet by mouth once daily. Angiotensin II Receptor Blockers (ARBs) verapamil SR (CALAN SR) 120 mg CR tablet Take 1 tablet by mouth daily at bedtime. Calcium Channel Blockers - Phenylakylamines OTHER Medication Dosage Pharm Subclass 5-Hydroxytryptophan (5-HTP) 100 mg cap Take by mouth. 2 in the morning 1 at night Alternative Therapy - Unclassified ALPRAZolam (XANAX) 1 mg tablet Take 1 tablet by mouth at bedtime as needed. Antianxiety Agent - Benzodiazepines Amphetamine-Dextroamphetamine (ADDERALL) 30 mg tablet Take 30 mg by mouth as needed. NURSE TECH Stimulant - Amphetamine Combinations ARIPiprazole (ABILIFY) 2 mg tablet Take 1 tablet by mouth once daily. Bipolar Therapy Agents - Atypical Antipsychotics xuvvmp-qwnhcqzveht-FnTe-NaHCO3 137 mcg-50 mcg- 0.9 % ksps Use in the nose. Nasal Antihistamine and Anti-inflammatory Steroid Combinations baclofen 10 mg tablet Take 2 tablets by mouth as needed. Skeletal Muscle Relaxant - Central Muscle Relaxants celecoxib (CELEBREX) 200 mg capsule Take 200 mg by mouth two times a day. NSAID Analgesic, Cyclooxygenase-2 (DUNNE-2) Selective Inhibitors estradiol 0.25 mg estriol 1 mg progesterone 50 mg per 1 g cream (CPD) folic acid 1 mg tablet Take 1 mg by mouth once daily. Vitamins - Folic Acid and Derivatives gabapentin (NEURONTIN) 400 mg capsule Take 400 mg by mouth two times a day. Anticonvulsant - ABDIEL Analogs hydrOXYzine pamoate (VISTARIL) 25 mg capsule Take 25 mg by mouth as needed. Antianxiety Agent - Antihistamine Type levothyroxine (SYNTHROID) 50 mcg tablet Take 1 tablet by mouth once daily. Thyroid Hormones - Synthetic T4 (Thyroxine) magnesium hydroxide 1,200 mg chew Take by mouth once daily. Laxative - Saline and Osmotic methotrexate (JYLAMVO) 2 mg/mL solution Take by mouth one time a week. DMARD - Antimetabolites metoclopramide HCl (REGLAN) 10 mg tablet Take 10 mg by mouth two times a day. Gastrointestinal Prokinetic Agents - D2 Antagonist/5-HT4 Agonists naltrexone capsule 0.5 mg (CPD) Take 1 capsule by mouth once daily. omeprazole (PRILOSEC) 20 mg capsule Take 20 mg by mouth once daily. Gastric Acid Secretion Dust Operator - Proton Pump Inhibitors (PPIs) iqsjjytxlpzoltq-CK-xvawHTThpdj (CAPMIST DM) 60-15-400 mg tab Take by mouth as needed. Non-Opioid Opjcoutoynl-Kmvimcfbdfqs-Hglxujp rant Combinations SUMAtriptan (IMITREX) 20 mg/actuation nasal spray Use 20 mg in the nose as needed. May repeat dose after 2 hours if needed. Maximum daily dose is 40 mg per day. Migraine Therapy - Selective Serotonin Agonists 5-HT(1) traZODone (DESYREL) 50 mg tablet Take 1.5 tablets by mouth daily at bedtime. Antidepressant - Serotonin-2 Antagonist-Reuptake Inhibitors (SARIs) ALLERGIES Allergen Reactions Penicillin G Hives, Diarrhea (more content not included)... [facility] 06-29-2024 History of Present illness Narrative HISTORY OF PRESENT ILLNESS: Johanna Shannon is presenting for endocrine issues/general endocrine evaluation. Requesting provider: None, self-referred. Patient is concerned about fatigue, PCOS, thyroid issues, abnormal weight gain. Patient reports major weight gain over 18 month ([id number]), about 160-170 lb. Patient has diabetes diagnosed around age 47 years. She has been on Mounjaro intermittently for the past 2 years, continuous for the past 6 months. Current Mounjaro dosage is 12.5 mg weekly. Patient reports maximum weight of 289 lb by 2020. Today's weight is 193 lb. Patient has hypothyroidism diagnosed around age 40-42 years. She has been on levothyroxine 50 mcg daily since diagnosis. Patient had hysterectomy in 2019 for fibroids, she still has one ovary. Hypertension was diagnosed about 2 years ago. Additional concerns are mood swings, fatigue, difficulty sleep. She has worsening depression. She is concerned about easy bruising. Review of Systems Constitutional: Positive for fatigue and night sweats. Eyes: Positive for visual disturbance. Cardiovascular: No palpitations Gastrointestinal: Positive for nausea (Still has nausea occasionally, not worsened by Mounjaro. She takes Reglan), diarrhea and constipation. Negative for vomiting. Neurological: Positive for dizziness (when standing up). Endo/Heme/Allergies: Negative for polydipsia. PAST MEDICAL HISTORY Diagnosis Date Anxiety Cervical cancer (HCC) 2004 Depression Diabetes mellitus (HCC) 2021 Essential hypertension 2021 Fibroid 2019 s/p hysterectomy Fibromyalgia PAST SURGICAL HISTORY Procedure Laterality Date TOTAL ABDOM HYSTERECTOMY 2018 She still has right ovary Current Medications 06/29/2024 DIABETES THERAPIES Medication Dosage Pharm Subclass tirzepatide (MOUNJARO) 12.5 mg/0.5 mL pen injector Inject 12.5 mg subcutaneously one time a week. Antihyperglycemic - Dual GIP and GLP-1 Receptor Agonists CARDIOVASCULAR Medication Dosage Pharm Subclass olmesartan (BENICAR) 20 mg tablet Take 1 tablet by mouth once daily. Angiotensin II Receptor Blockers (ARBs) verapamil SR (CALAN SR) 120 mg CR tablet Take 1 tablet by mouth daily at bedtime. Calcium Channel Blockers - Phenylakylamines OTHER Medication Dosage Pharm Subclass 5-Hydroxytryptophan (5-HTP) 100 mg cap Take by mouth. 2 in the morning 1 at night Alternative Therapy - Unclassified ALPRAZolam (XANAX) 1 mg tablet Take 1 tablet by mouth at bedtime as needed. Antianxiety Agent - Benzodiazepines Amphetamine-Dextroamphetamine (ADDERALL) 30 mg tablet Take 30 mg by mouth as needed. NURSE TECH Stimulant - Amphetamine Combinations ARIPiprazole (ABILIFY) 2 mg tablet Take 1 tablet by mouth once daily. Bipolar Therapy Agents - Atypical Antipsychotics oslzik-kstkltgdfbd-HwGl-NaHCO3 137 mcg-50 mcg- 0.9 % ksps Use in the nose. Nasal Antihistamine and Anti-inflammatory Steroid Combinations baclofen 10 mg tablet Take 2 tablets by mouth as needed. Skeletal Muscle Relaxant - Central Muscle Relaxants celecoxib (CELEBREX) 200 mg capsule Take 200 mg by mouth two times a day. NSAID Analgesic, Cyclooxygenase-2 (DUNNE-2) Selective Inhibitors estradiol 0.25 mg estriol 1 mg progesterone 50 mg per 1 g cream (CPD) folic acid 1 mg tablet Take 1 mg by mouth once daily. Vitamins - Folic Acid and Derivatives gabapentin (NEURONTIN) 400 mg capsule Take 400 mg by mouth two times a day. Anticonvulsant - ABDIEL Analogs hydrOXYzine pamoate (VISTARIL) 25 mg capsule Take 25 mg by mouth as needed. Antianxiety Agent - Antihistamine Type levothyroxine (SYNTHROID) 50 mcg tablet Take 1 tablet by mouth once daily. Thyroid Hormones - Synthetic T4 (Thyroxine) magnesium hydroxide 1,200 mg chew Take by mouth once daily. Laxative - Saline and Osmotic methotrexate (JYLAMVO) 2 mg/mL solution Take by mouth one time a week. DMARD - Antimetabolites metoclopramide HCl (REGLAN) 10 mg tablet Take 10 mg by mouth two times a day. Gastrointestinal Prokinetic Agents - D2 Antagonist/5-HT4 Agonists naltrexone capsule 0.5 mg (CPD) Take 1 capsule by mouth once daily. omeprazole (PRILOSEC) 20 mg capsule Take 20 mg by mouth once daily. Gastric Acid Secretion Dust Operator - Proton Pump Inhibitors (PPIs) zjfiunisrvrmhbh-DG-xbymTBAnxll (CAPMIST DM) 60-15-400 mg tab Take by mouth as needed. Non-Opioid Kwmblyetvyl-Txizcwxdasrh-Ildrvqk rant Combinations SUMAtriptan (IMITREX) 20 mg/actuation nasal spray Use 20 mg in the nose as needed. May repeat dose after 2 hours if needed. Maximum daily dose is 40 mg per day. Migraine Therapy - Selective Serotonin Agonists 5-HT(1) traZODone (DESYREL) 50 mg tablet Take 1.5 tablets by mouth daily at bedtime. Antidepressant - Serotonin-2 Antagonist-Reuptake Inhibitors (SARIs) ALLERGIES Allergen Reactions Penicillin G Hives, Diarrhea, Itching Acetaminophen-Codei* Intolerance medically overdosed Darvocet A500 [Prop* Hives, Intolerance, Itching Morphine Anaphylaxis Percocet [Oxycodone* Hives, Swelling, Itching, Vomiting Vicodin [Hydrocodon* Hives, Swelling, Itching, Vomiting FAMILY HISTORY Problem Relation Age of Onset Diabetes Mother Diabetes Brother Social History Tobacco Use Smoking status: Some Days Current packs/day: 0.00 Average packs/day: 0.3 packs/day for 26.0 years (6.5 ttl pk-yrs) Types: Cigarettes Start date: 1990 Last attempt to quit: 2016 Years since quittin.1 Smokeless tobacco: Never Tobacco comments: social smoker Substance Use Topics Alcohol use: No Drug use: No Vital Signs: BP 108/62 Pulse 91 Resp 16 Wt 87.7 kg (193 lb 5.5 oz) BMI 32.17 kg/m Physical Exam Constitutional: Appearance: She is not ill-appearing or diaphoretic. Eyes: Conjunctiva/sclera: Conjunctivae normal. Neck: Thyroid: No thyromegaly or thyroid tenderness. Vascular: No carotid bruit. Cardiovascular: Rate and Rhythm: Normal rate and regular rhythm. Heart sounds: No murmur heard. No gallop. Comments: No edema in LE Pulmonary: Effort: Pulmonary effort is normal. Breath sounds: Normal breath sounds. Abdominal: General: Bowel sounds are normal. Palpations: Abdomen is soft. Lymphadenopathy: Cervical: No cervical adenopathy. Skin: Comments: No purple striae on abdomen. No hyperpigmentation in LE Neurological: Mental Status: She is alert. IMPRESSION AND PLAN: Type 2 diabetes diagnosed at age 47 years: controlled per A1c today, POC, 5.1%. Continue with Mounjaro Obtain labs (Lipids, CMP, urine microalbumin to creatinine ratio) Acquired hypothyroidism: Treated with levothyroxine 50 mcg daily Obtain TSH and free T4 Hypertension, likely primary. Controlled. Patient has occasional dizziness. Decreasing the dosage of Olmestartan could be considered. However, she indicated labile hypertension. Obtain 1 mg dexamethasone suppression test Patient has not taking her estrogen cream for the past few months (used it for 3 times over the past few months). Obtain renin, aldosterone and CMP Obesity, class 3 per reported maximum weight. Current weight is within class 1 obesity. Contributing factors cannot be determined at this point. The possibility of Lissett's is low, she is able to lose weight on Mounjaro. By all means, we are investigating this possibility as noted in item # 3. Other causes would be a theoretical assumptions and difficult to prove, including disturbed sleep, life style factors, a period of untreated hypothyroidism, side effects of medications (especially psychiatric medications). History of PCOS: This is no longer relevant at this point. Likely, she has ovarian failure/menopause. Obtain FSH. Depression and mood swings: The preference is to be managed by a psychiatrist. She reported a consultation for establishing the diagnosis without ongoing follow up. Several drug interactions were noted when updated her medication list. It is not clear to me if those are clinically significant. A consultation with a pharmacist should be considered. Patient expressed understanding and agreed with plan. I spent a total of 74 minutes on the date of the service which included preparing to see the patient, [id number] patient care, completing clinical documentation, obtaining and/or reviewing separately obtained history, performing a medically appropriate examination, counseling and educating the patient/family/caregiver, and ordering medications, tests, or procedures. Asia Vance MD, DANDRE documented in this encounter [facility] 06-21-2024 Note Patient Education aripiprazole (oral) (AR i PIP ra zole) Abilifrosamaria What is the most important information I should know about aripiprazole? Aripiprazole is not approved for use in older adults with dementia-related psychosis. People with depression or mental illness may have thoughts about suicide. Some young people may have increased suicidal thoughts when first starting a medicine to treat depression. Tell your doctor right away if you have any sudden changes in mood or behavior, or thoughts about suicide. If you also use antidepressant medicine, do not stop using it suddenly. What is aripiprazole? Aripiprazole is an antipsychotic medicine that is used to treat schizophrenia in adults and children at least 13 years old. Aripiprazole is also used in children at least 6 years old to treat Tourette's disorder, or irritability related to autistic disorder. Aripiprazole is used alone or with a mood stabilizer medicine to treat bipolar I disorder (manic depression) in adults and children at least 10 years old. Aripiprazole is used with antidepressant medication to treat major depressive disorder in adults. Aripiprazole may also be used for purposes not listed in this medication guide. What should I discuss with my healthcare provider before taking aripiprazole? You should not take aripiprazole if you are allergic to it. Aripiprazole may increase the risk of in older adults with dementia-related psychosis and is not approved for this use. Tell your doctor if you have ever had: ? heart problems or a stroke; ??? high or low blood pressure; ??? diabetes (in you or a family member); ??? seizures; or ??? low white blood cell (WBC) counts. People with depression or mental illness may have thoughts about suicide. Some young people may have increased suicidal thoughts when first starting a medicine to treat depression. Stay alert to changes in your mood or symptoms. Your family or caregivers should also watch for sudden changes in your behavior. The liquid form (oral solution) of this medication contains sugar. Before taking aripiprazole oral solution, tell your doctor if you have diabetes. Aripiprazole can cause high blood sugar (hyperglycemia). If you are diabetic, check your blood sugar levels carefully. The orally disintegrating tablet form of aripiprazole contains phenylalanine and could be harmful if you have phenylketonuria (PKU). Taking antipsychotic medicine in the last 3 months of may cause serious problems in the . Tell your doctor right away if you get . Do not stop the medicine without your doctor's advice. If you are , your name may be listed on a registry to track the effects of aripiprazole on the baby. Ask a doctor if it is safe to breastfeed while using this medicine. How should I take aripiprazole? Follow all directions on your prescription label and read all medication guides or instruction sheets. Your doctor may occasionally change your dose. Use the medicine exactly as directed. Aripiprazole can be taken with or without food. Swallow the regular tablet whole and do not crush, chew, or break it. Do not split the orally disintegrating tablet. Measure liquid medicine with the supplied measuring device (not a kitchen spoon). Allow the orally disintegrating tablet to dissolve in your mouth without chewing. Your doctor will need to check your progress on a regular basis. If you also use antidepressant medicine, do not stop using it suddenly or you could have unpleasant symptoms. Ask your doctor before stopping the antidepressant. Store at room temperature away from moisture and heat. Aripiprazole liquid may be used for up to 6 months after opening, but not after the expiration date on the medicine label. What happens if I miss a dose? Take the medicine as soon as you can, but skip the missed dose if it is almost time for your next dose. Do not take two doses at one time. Get your prescription refilled before you run out of medicine completely. What happens if I overdose? Seek emergency medical attention or call the Poison Help line at . Overdose symptoms may include drowsiness, vomiting, aggression, confusion, tremors, fast or slow heart rate, seizure (convulsions), weak or shallow breathing, fainting, or coma. What should I avoid while taking aripiprazole? Avoid getting up too fast from a sitting or lying position, or you may feel dizzy. Avoid driving or hazardous activity until you know how this medicine will affect you. Dizziness or drowsiness can cause falls, accidents, or severe injuries. Avoid drinking alcohol. Dangerous side effects could occur. While taking aripiprazole, you may be more sensitive to very hot conditions. Avoid becoming overheated or dehydrated. Drink plenty of fluids, especially in hot weather and during exercise. What are the possible side effects of aripiprazole? Get emergency medical help if you have signs of an a (more content not included)... [facility] 06-15-2024 Note Patient Education Infectious Disease Sinus Infection, Adult A sinus infection is soreness and swelling (inflammation) of your sinuses. Sinuses are hollow spaces in the bones around your face. They are located: ??? Around your eyes. ??? In the middle of your forehead. ??? Behind your nose. ??? In your cheekbones. Your sinuses and nasal passages are lined with a fluid called mucus. Mucus drains out of your sinuses. Swelling can trap mucus in your sinuses. This lets germs (bacteria, virus, or fungus) grow, which leads to infection. Most of the time, this condition is caused by a virus. What are the causes? Allergies. ??? Asthma. ??? Germs. ??? Things that block your nose or sinuses. ??? Growths in the nose (nasal polyps). ??? Chemicals or irritants in the air. ??? A fungus. This is rare. What increases the risk? Having a weak body defense system (immune system). ??? Doing a lot of swimming or diving. ??? Using nasal sprays too much. ??? Smoking. What are the signs or symptoms? The main symptoms of this condition are pain and a feeling of pressure around the sinuses. Other symptoms include: ??? Stuffy nose (congestion). This may make it hard to breathe through your nose. ??? Runny nose (drainage). ??? Soreness, swelling, and warmth in the sinuses. ??? A cough that may get worse at night. ??? Being unable to smell and taste. ??? Mucus that collects in the throat or the back of the nose (postnasal drip). This may cause a sore throat or bad breath. ??? Being very tired (fatigued). ??? A fever. How is this diagnosed? Your symptoms. ??? Your medical history. ??? A physical exam. ??? Tests to find out if your condition is short-term (acute) or long-term (chronic). Your doctor may: ? Check your nose for growths (polyps). ? Check your sinuses using a tool that has a light on one end (endoscope). ? Check for allergies or germs. ? Do imaging tests, such as an MRI or CT scan. How is this treated? Treatment for this condition depends on the cause and whether it is short-term or long-term. ??? If caused by a virus, your symptoms should go away on their own within 10 days. You may be given medicines to relieve symptoms. They include: ? Medicines that shrink swollen tissue in the nose. ? A spray that treats swelling of the nostrils. ? Rinses that help get rid of thick mucus in your nose (nasal saline washes). ? Medicines that treat allergies (antihistamines). ? Rbqd-bdi-ieyegtf pain relievers. ??? If caused by bacteria, your doctor may wait to see if you will get better without treatment. You may be given antibiotic medicine if you have: ? A very bad infection. ? A weak body defense system. ??? If caused by growths in the nose, surgery may be needed. Follow these instructions at home: Medicines ??? Take, use, or apply azus-itl-cghtzak and prescription medicines only as told by your doctor. These may include nasal sprays. ??? If you were prescribed an antibiotic medicine, take it as told by your doctor. Do not stop taking it even if you start to feel better. Hydrate and humidify ??? Drink enough water to keep your pee (urine) pale yellow. ??? Use a cool mist humidifier to keep the humidity level in your home above 50%. ??? Breathe in steam for 10?15 minutes, 3?4 times a day, or as told by your doctor. You can do this in the bathroom while a hot shower is running. ??? Try not to spend time in cool or dry air. Rest ??? Rest as much as you can. ??? Sleep with your head raised (elevated). ??? Make sure you get enough sleep each night. General instructions ??? Put a warm, moist washcloth on your face 3?4 times a day, or as often as told by your doctor. ??? Use nasal saline washes as often as told by your doctor. ??? Wash your hands often with soap and water. If you cannot use soap and water, use hand disaster recovery analyst. ??? Do not smoke. Avoid being around people who are smoking (secondhand smoke). ??? Keep all follow-up visits. Contact a doctor if: ??? You have a fever. ??? Your symptoms get worse. ??? Your symptoms do not get better within 10 days. Get help right away if: ??? You have a very bad headache. ??? You cannot stop vomiting. ??? You have very bad pain or swelling around your face or eyes. ??? You have trouble seeing. ??? You feel confused. ??? Your neck is stiff. ??? You have trouble breathing. These symptoms may be an emergency. Get help right away. Call 911. ??? Do not wait to see if the symptoms will go away. ??? Do not drive yourself to the hospital. Summary ??? A sinus infection is swelling of your sinuses. Sinuses are hollow spaces in the bones around your face. ??? This condition is caused by tissues in your nose that become inflamed or swollen. This traps germs. These can lead to infection. ??? If you were prescribed an (more content not included)... [facility] 05-25-2024 History of Present illness Narrative Chief complaint: S/P left shoulder scope-first postoperative visit History: S/P shoulder scope, doing well. No complaints with anesthesia or chastity-operative ancillary care. Block was helpful and no residual deficits/concerns. Pain is controlled. No chest or SOB. Physical Exam: The shoulder has mild swelling. No rash or infection. Portals are clean, dry and intact. Sutures are removed. AROM improving with mild stiffness as expected. NVM intact distally. Xrays: Two views, AP and Lateral, in the office taken today saved to the permanent record shows post surgical change with acromioplasty/partial distal clavulectomy with appropriate coplaning. No acute fracture, dislocation, tumor or infection seen. Arthroscopic prints reviewed. Assessment: S/P left shoulder scope-first post operative visit Treatment Plan: The nature of the findings were discussed at length. Continue scope exercise sheet that was provided the day of surgery, twice a day for 2 more weeks. Ice 2-3 three times a day for the next couple weeks. Regular exercise at 4 weeks from surgery. Wall, pendulum and myrtle exercises reviewed at [facility]. PT was offered and discussed. F/U will be in 2 months, prn if doing well. All questions answered. documented in this encounter [facility] 05-04-2024 History of Present illness Narrative Images from the original note were not included. GENERAL HISTORY AND PHYSICAL: NAME: Johanna Shannon : 1975 CHIEF COMPLAINT: Left shoulder pain and stiffness. HISTORY OF PRESENT ILLNESS: Johanna is here for her left shoulder MRI performed through [facility]. This has rotator cuff tendinopathy with impingement. There is a hypertrophic A/C joint. There is a type II acromion. There is some partial bursal side tearing of the supraspinatus. There is a moderate amount of cuff edema from reactivity. There is no full thickness cuff tear seen. The labrum has degenerative characteristics. Biceps anchor is intact. Her pain has progressed where it is starting to consume her more and causing significant night disruption. She has attempted a prolonged course of conservative care including therapy and injection management. Activities of daily living and night disruption is present. She is requesting surgical management. Spouse is present today and she has done well with outpatient surgery in the past. Johanna is here still having significant shoulder pain despite therapy, ice, anti-inflammatory and cortisone injections. The injection provided minimal to no relief. She is having significant night disruption. She has difficulty moving the arm. Any form of overhead and rotatory motion produces significant pain. She does report crepitance. She reports stiffness. She has no fever, chills or constitutional symptoms. No arthralgias or myalgias. She does get a fair amount of neck pain as well as trapezial tightness. She has been working with her massotherapist. PAST MEDICAL HISTORY: Past Medical History: Diagnosis Date Abnormal Pap smear of cervix Abnormal weight gain ADHD (CMS/HCC) 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CMS/HCC) Anxiety and depression (CMS/HCC) Arthritis Binge eating disorder (CMS/HCC) Chronic rhinosinusitis Chronic sinusitis Encounter for insertion of mirena IUD 2005 Encounter for insertion of mirena IUD 2005 Fibromyalgia syndrome Fracture of ankle 1995 GERD (gastroesophageal reflux disease) H/O lithotripsy 2000 w/ stents H/O primary hypertension History of being hospitalized Medical Overdose / Seizure Clinic / 3 Mini TIA History of hysterectomy History of IBS History of lithotripsy 2000 Lithotripsy w/stents History of medical problems Precancerous changes to cervix History of medical problems Ulcers Hormone imbalance Hx of being hospitalized seizure clinic Hx of being hospitalized 3 mini TIA Hyperlipidemia ([facility]) Hypothyroidism (acquired) ([facility]) Migraine ([facility]) Moderate smoker (20 or less per day) 06/18/2016 Nasal turbinate hypertrophy 04/01/2023 PCOS (polycystic ovarian syndrome) Precancerous changes of the cervix PTSD (post-traumatic stress disorder) ([facility]) S/P plastic surgery 06/02/2012 Sprain of anterior talofibular ligament of left ankle 04/01/2023 Stroke ([facility]) Mini Stroke Thyroid dysfunction ([facility]) Type 2 diabetes mellitus ([facility]) PAST SURGICAL HISTORY: Past Surgical History: Procedure Laterality Date ANKLE LIGAMENT RECONSTRUCTION 08/30/2021 BELT ABDOMINOPLASTY 06/2015 ENDOMETRIAL ABLATION FEMINIZING AUGMENTATION MAMMOPLASTY 06/2015 GYNECOLOGIC CRYOSURGERY Precancerous changes to cervix HYSTERECTOMY 05/07/2020 still has both ovaries KIDNEY STONE SURGERY 2000, 2014 KNEE SURGERY Right 03/11/2024 R knee scope- MTP PAP SMEAR 07/01/2022 negative SALPINGECTOMY Bilateral TONSILLECTOMY 1996 TUBAL LIGATION SOCIAL HISTORY: Social History Occupational History Not on file Tobacco Use Smoking status: Former Current packs/day: 0.00 Types: Cigarettes Passive exposure: Never Smokeless tobacco: Never Vaping Use Vaping status: Never Used Substance and Sexual Activity Alcohol use: Not Currently Comment: Maybe once a month Drug use: Never Sexual activity: Yes Partners: Male control/protection: Female Sterilization Comment: Hysterectomy ALLERGIES: Allergies Allergen Reactions Morphine Anaphylaxis Penicillin G Diarrhea, Hives and Itching Propoxyphene Hives, Unknown and Itching Rizatriptan Unknown Tetracycline Nausea Only MEDICATIONS: Current Outpatient Medications Medication Instructions ALPRAZolam (XANAX) 1 mg, Oral, 2 times daily PRN amphetamine-dextroamphetamine XR (Adderall XR) 30 MG 24 hr capsule 30 mg, Oral, Every 24 hours baclofen (Lioresal) 10 MG tablet take 1 tablet by mouth daily if needed for muscle spasm Blood Glucose Monitoring Suppl (ONE TOUCH ULTRA MINI) w/Device kit 1 strip, Does not apply, 2 times daily busPIRone (BUSPAR) 15 mg, Oral, 3 times daily celecoxib (CELEBREX) 200 mg, Oral, 2 times daily Cream Base (PCCA Vanpen Base) cream cyanocobalamin (Vitamin B-12) 1000 MCG/ML injection Intramuscular, As needed cyclobenzaprine (FLEXERIL) 10 mg, Oral, Every 8 hours PRN folic acid (FOLVITE) 1,000 mcg, Oral, Daily furosemide (Lasix) 20 MG tablet Every 24 hours gabapentin (NEURONTIN) 400 mg, Oral, 2 times daily glucose blood (CloudX Ultra Test) test strip DIRECTED IN VITRO hydroxychloroquine (Plaquenil) 200 MG tablet 1 tablet, Oral, 2 times daily hydrOXYzine pamoate (VISTARIL) 25 mg, Oral ibuprofen 600 MG tablet 1 tablet, Oral, Every 6 hours levothyroxine (Synthroid, Levoxyl) 50 MCG tablet Every 24 hours Magnesium 125 MG capsule Oral Methotrexate Sodium (methotrexate PF) 1 GM/40ML chemo syringe metoclopramide (Reglan) 10 MG tablet Oral, 2 times daily Mounjaro 12.5 mg, Subcutaneous, Every 7 days naltrexone (DEPADE) 6 mg, Oral, Daily olmesartan (BENIcar) 20 MG tablet take 1 tablet by mouth once daily as directed omeprazole (PRILOSEC) 20 mg, Oral, Daily Lmmhezxhgyqimyn-IY-KE (CAPMIST DM PO) Oral SUMAtriptan (IMITREX) 20 mg, One Nostril, Once as needed tiZANidine (ZANAFLEX) 4 mg, Oral, Nightly PRN traZODone (DESYREL) 75 mg, Oral, Nightly verapamil SR (CALAN SR) 120 mg, Oral, Nightly, Do not crush or chew. REVIEW OF SYSTEMS: The review of systems, history and current medications list are all reviewed today. Vitals: Visit Vitals Ht 5' 4 Wt 191 lb BMI 32.79 kg/m Smoking Status Former BSA 1.98 m PHYSICAL EXAM: On physical exam, she is alert and oriented. Vital signs are stable. The shoulder is clinically reduced. She has a moderate amount of hypertonicity of the deltoid. There is moderate to severe tenderness of the subacromial space. Rotator cuff impingement tests are are positive. Cuff strength is intact, although guarded. Active range of motion is intact, also guarded. Cross arm produces pain. Biceps exam is stable both proximal and distal. She is neurovascularly intact distally. There is moderate tightness of the trapezial area from compensation as well as referred to her deltoid. She has no sign of instability. Mild adhesive component is present. X-rays and imaging permanently saved to the patient's record were reviewed in the past showing a type II acromion with moderately hypertrophic A/C joint. The glenohumeral joint is spared. There is no acute fracture, dislocation, tumor or infection seen. MRI as above. Surgical History and Physical: GENERAL AND PSYCHOLOGICAL: The patient is alert and oriented for age. HEAD AND E.E.N.T.: The skull is normocephalic. There is no mass or sign of trauma. NECK: The neck is supple. There is good range of motion. There is no mass or adenopathy appreciated. The thyroid is not enlarged. CARDIAC: The heart is regular. There is no murmur or ectopy appreciated. LUNGS: Inspiratory and expiratory excursions are symmetrical. The lung mccauley are clear in all quadrants. ABDOMEN: The texture is soft. Bowel sounds are heard well in all quadrants. There is no tenderness to palpation. There is no organomegaly appreciated. OSTEOPATHIC AND STRUCTURAL: There is no gross evidence of kyphosis, lordosis, scoliosis, or apparent leg length discrepancy, with no acute tissue texture changes in sitting or standing positions. 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 Partial rotator cuff tear. Failure of conservative and injection management. PLAN: The nature of the findings were discussed at length. Ice, Tylenol, topicals, stretching have all failed. She has tried cortisone injection. The recommendation is diagnostic and therapeutic arthroscopy. The pros, cons, risks, benefits and reasonable expectations were reviewed. The perioperative course was discussed. The nature of the findings were discussed at length. The pathology and imaging have been reviewed. The patient has attempted conservative, injection and prolonged management and has continued pain throughout the day as well as night disruption. Shoulder arthroscopy and further assessment with debridement, decompression, and possible rotator cuff repair was reviewed. The postoperative immobilization period of four to six weeks was discussed. The potential of prolonged physical therapy, continued pain, dissatisfaction, and stiffness were all reviewed. The risks, benefits, complications, and reasonable expectations, time off work, healing time, general interscalene anesthesia were also discussed. Patient is aware of the potential of infection, infection requiring multiple surgeries with IV antibiotics, stiffness, stiffness requiring manipulation, continued pain, dissatisfaction, problems down the road, nerve, vessel or tendon injury, pneumothorax, blood clot, myocardial infarction, arrhythmia, stroke and were all reviewed. The patient voices verbal understanding. Consent forms are signed and charted of which I am personally involved with the informed consent process. The patient will undergo routine presurgical testing and we will move forward in the near future and I will see the patient back postoperatively for x-ray and exam. She will undergo routine presurgical testing and scheduling. We will move forward in the near future. I will see her back postoperatively for x-ray and exam. She voices verbal understanding. She is discharged in stable condition. Iwona Escalante D.O. documented in this encounter [facility] 03-23-2024 Note Patient Education Mental and [facility] Insomnia Insomnia is a sleep disorder that makes it difficult to fall asleep or stay asleep. Insomnia can cause fatigue, low energy, difficulty concentrating, mood swings, and poor performance at work or school. There are three different ways to classify insomnia: ? Difficulty falling asleep. ? Difficulty staying asleep. ? Waking up too early in the morning. Any type of insomnia can be long-term (chronic) or short-term (acute). Both are common. Short-term insomnia usually lasts for 3 months or less. Chronic insomnia occurs at least three times a week for longer than 3 months. What are the causes? Insomnia may be caused by another condition, situation, or substance, such as: ? Having certain mental health conditions, such as anxiety and depression. ? Using caffeine, alcohol, tobacco, or drugs. ? Having gastrointestinal conditions, such as gastroesophageal reflux disease (GERD). ? Having certain medical conditions. These include: ? Asthma. ? Alzheimer's disease. ? Stroke. ? Chronic pain. ? An overactive thyroid gland (hyperthyroidism). ? Other sleep disorders, such as restless legs syndrome and sleep apnea. ? Menopause. Sometimes, the cause of insomnia may not be known. What increases the risk? Risk factors for insomnia include: ? Gender. Females are affected more often than males. ? Age. Insomnia is more common as people get older. ? Stress and certain medical and mental health conditions. ? Lack of exercise. ? Having an irregular work schedule. This may include working night shifts and traveling between different time zones. What are the signs or symptoms? If you have insomnia, the main symptom is having trouble falling asleep or having trouble staying asleep. This may lead to other symptoms, such as: ? Feeling tired or having low energy. ? Feeling nervous about going to sleep. ? Not feeling rested in the morning. ? Having trouble concentrating. ? Feeling irritable, anxious, or depressed. How is this diagnosed? This condition may be diagnosed based on: ? Your symptoms and medical history. Your health care provider may ask about: ? Your sleep habits. ? Any medical conditions you have. ? Your mental health. ? A physical exam. How is this treated? Treatment for insomnia depends on the cause. Treatment may focus on treating an underlying condition that is causing the insomnia. Treatment may also include: ? Medicines to help you sleep. ? Counseling or therapy. ? Lifestyle adjustments to help you sleep better. Follow these instructions at home: Eating and drinking ? Limit or avoid alcohol, caffeinated beverages, and products that contain nicotine and tobacco, especially close to bedtime. These can disrupt your sleep. ? Do not eat a large meal or eat spicy foods right before bedtime. This can lead to digestive discomfort that can make it hard for you to sleep. Sleep habits ? Keep a sleep diary to help you and your health care provider figure out what could be causing your insomnia. Write down: ? When you sleep. ? When you wake up during the night. ? How well you sleep and how rested you feel the next day. ? Any side effects of medicines you are taking. ? What you eat and drink. ? Make your bedroom a dark, comfortable place where it is easy to fall asleep. ? Put up shades or blackout curtains to block light from outside. ? Use a white noise machine to block noise. ? Keep the temperature cool. ? Limit screen use before bedtime. This includes: ? Not watching TV. ? Not using your smartphone, tablet, or computer. ? Stick to a routine that includes going to bed and waking up at the same times every day and night. This can help you fall asleep faster. Consider making a quiet activity, such as reading, part of your nighttime routine. ? Try to avoid taking naps during the day so that you sleep better at night. ? Get out of bed if you are still awake after 15 minutes of trying to sleep. Keep the lights down, but try reading or doing a quiet activity. When you feel sleepy, go back to bed. General instructions ? Take [id number] and prescription medicines only as told by your health care provider. ? Exercise regularly as told by your health care provider. However, avoid exercising in the hours right before bedtime. ? Use relaxation techniques to manage stress. Ask your health care provider to suggest some techniques that may work well for you. These may include: ? Breathing exercises. ? Routines to release muscle tension. ? Visualizing peaceful scenes. ? Make sure that you drive carefully. Do not drive if you feel very sleepy. ? Keep all follow-up visits. This is important. Contact a health care provider if: ? You are tired throughout the day. ? You have trouble in your daily routine due to sleepiness. ? You continue to have sleep problems (more content not included)... [facility] 02-13-2023 History of Present illness Narrative Patient being assessed today for initial evaluation of memory changes. Patient reports that in 2012 she experienced 4 TIAs within 3 months of each other. She most recently had another TIA 6 weeks ago. She started to experience memory changes in 2012 and over the past 3 years they have continued to be more noticeable. It is starting to affect her work production as well. She states that when she is in the middle of the conversation she will go blank and forget what she was even saying or talking about. She will frequently go to different parts of the house and not recall why. She feels like she has continuous brain fog. She was also recently diagnosed with lupus. Additionally has history of PTSD and trauma. Patient's mother does also have Alzheimer's so patient is trying to be proactive in anything that could be causing issues for herself. Would like to get neurocognitive testing completed. Follow-up after testing completed.This note was created with voice recognition software and was not corrected for typographical or grammatical errors [facility] Work Phone: 02-11-2023 History of Present illness Narrative Patient being assessed today for initial evaluation of memory changes. Patient reports that in 2013 she experienced 4 TIAs within 3 months of each other. She most recently had another TIA 6 weeks ago. She started to experience memory changes in 2012 and over the past 3 years they have continued to be more noticeable. It is starting to affect her work production as well. She states that when she is in the middle of the conversation she will go blank and forget what she was even saying or talking about. She will frequently go to different parts of the house and not recall why. She feels like she has continuous brain fog. She was also recently diagnosed with lupus. Additionally has history of PTSD and trauma. Patient's mother does also have Alzheimer's so patient is trying to be proactive in anything that could be causing issues for herself. Would like to get neurocognitive testing completed. Follow-up after testing completed.This note was created with voice recognition software and was not corrected for typographical or grammatical errors [facility] Work Phone: 01-21-2023 Progress note Note Date/Time January 21, 2023 3:50pm [facility] [address] [place] [address] Hospitalist Progress Note Signed Patient: Johanna Shannon MR#: [id number] : 1975 Acct:[id number] Age/Sex: 47 / F Adm Date: 3 Loc: 4 Room: [address] [place] [address] Type: ADM IN Attending Dr: Janeth Scherer MD Copies to: ~ Date of Service: 01/21/2023 Subjective Subjective Narrative: Patient has been seen and examined today. Patient is quite upset about her diagnosis. We discussed regarding the need to follow-up as outpatient includingpsychiatry evaluation as well as further evaluation of treatment with neurologist for her migraine. Patient was informed that MRI did not reveal any acute findings Physical exam: General -awake, alert, oriented ?3, not in acute distress, patient does not appear to be photophobic nor in pain. Cardiovascular -S1 with S2, no murmurs, no rubs, no gallops Pulmonary - clear to auscultation bilaterally Gastrointestinal - abdomen is soft, nondistended, nontender, bowel sounds positive, there is no rigidity, no rebound Extremities -no edema Neurological still elevated right upper and lower extremity weakness, but noted by the nursing staff to use full power of the right upper and lower extremity. No facial asymmetry. Pupils equal and reactive, extraocular muscle intact, speech is clear, no tremors, EKG reviewed Exam Physical Exam Vital Signs: Temp Pulse Resp BP Pulse Ox O2 Del Method 36.6 C 80 20 142/89 H 95 Room Air 01/21/23 11:48 01/21/23 11:48 01/21/23 11:48 01/21/23 11:48 01/21/23 11:48 01/21/23 11:48 Objective Lab Results 01/20/23 04:38 01/20/23 04:38 Meds Allergies and Active Meds Allergies amoxicillin Adverse Reaction (Verified 01/19/23 21:01) Unknown Reaction pain medications Allergy (Uncoded 01/19/23 21:01) Unknown Reaction Active Meds: Active Medications Generic Name Dose Route Start Last Admin Trade Name Freq PRN Reason Stop Dose Admin Acetaminophen 1,000 mg 01/19/23 23:51 Acetaminophen 500 Mg Tablet PO 01/19/24 23:50 Q6HR PRN Pain Scale 1 - 3 or fever Alprazolam 1 mg 01/20/23 00:58 01/20/23 09:00 Alprazolam 0.5 Mg Tablet PO 01/20/24 08:59 1 mg BID PRN Administration Anxiety Aspirin 81 mg 01/20/23 09:00 01/21/23 08:56 Aspirin 81 Mg Tab.Chew PO 01/20/24 08:59 81 mg DAILY RAYMOND Administration Celecoxib 200 mg 01/20/23 21:00 01/21/23 08:56 Celecoxib 200 Mg Capsule PO 01/20/24 20:59 200 mg BID RAYMOND Administration Duloxetine HCl 60 mg 01/21/23 09:00 01/21/23 08:57 Duloxetine 60 Mg Capsule. PO 01/21/24 08:59 60 mg DAILY RAYMOND Administration Duloxetine HCl 20 mg 01/21/23 22:00 Duloxetine 20 Mg Capsule. PO 01/21/24 21:59 QHS RAYMOND Enoxaparin Sodium 40 mg 01/20/23 10:00 01/21/23 10:00 Enoxaparin 40 Mg/0.4 Ml Syringe SUBCUT 01/20/24 09:59 Not Given DAILY@10 RAYMOND Fluoxetine HCl 20 mg 01/20/23 09:00 01/21/23 08:58 Fluoxetine 20 Mg Capsule PO 01/20/24 08:59 Not Given QAM RAYMOND Hydroxychloroquine Sulfate 200 mg 01/21/23 09:00 01/21/23 08:56 Hydroxychloroquine Sulfate 200 Mg Tablet PO 01/21/24 08:59 200 mg BID RAYMOND Administration Insulin Aspart 0 units 01/20/23 08:00 01/21/23 13:16 Insulin Aspart 300 Units/3 Ml Insuln.Pen SUBCUT 01/20/24 07:59 Not Given TID.WM.HS RAYMOND Protocol Levothyroxine Sodium 50 mcg 01/20/23 06:30 01/21/23 05:29 Levothyroxine 50 Mcg Tablet PO 01/20/24 06:29 50 mcg DAILY@0630 RAYMOND Administration Methotrexate Sodium 20 mg 01/20/23 16:00 01/20/23 17:32 Methotrexate Sodium/Pf 250 Mg/10 Ml Vial SUBCUT 01/20/24 15:59 20 mg QWEEK RAYMOND Administration Pantoprazole Sodium 40 mg 01/20/23 09:00 01/21/23 08:56 Pantoprazole 40 Mg Tablet. PO 01/20/24 08:59 40 mg DAILY RAYMOND Administration Sodium Chloride 0 ml 01/19/23 21:25 01/19/23 23:43 Sodium Chloride 0.9 % 10 Ml Syringe IV-PUSH 01/19/24 21:24 10 ml PRN PRN Administration Flush Sodium Chloride 0 ml 01/20/23 06:00 01/21/23 08:49 Sodium Chloride 0.9 % 10 Ml Syringe IV-PUSH 01/20/24 05:59 Not Given QSHIFT RAYMOND Sodium Chloride 10 ml 01/20/23 21:32 Sodium Chloride 0.9 % 10 Ml Vial.Pf INJECTION 01/20/24 21:31 Q4H PRN Ativan dilution Tizanidine HCl 4 mg 01/20/23 22:00 01/20/23 22:26 Tizanidine 4 Mg Tablet PO 01/20/24 21:59 4 mg HS RAYMOND Administration Verapamil HCl 120 mg 01/20/23 14:45 01/21/23 08:56 Verapamil Er (Sr) 120 Mg Tablet.Er PO 01/20/24 14:44 120 mg DAILY RAYMOND Administration A&P -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 PRESENT ILLNESS: Ms. Shannon is a 47-year-old female with a PMH of seizures, PTSD, anxiety, migraines, TIAs the presented to the emergency room today with complaints of an unwitnessed seizure. Patient seen and evaluated at bedside, resting quietly. She reports that she has had a headache since Thursday, still positive for historyof migraines. She states she told her that she did not feel good, felt numbness and tingling to the right side, also states that her blood sugar was low. She points to the left parietal area of her skull, constant ache that goesto her eyeballs, states it feels like it cannot push out her eyeballs, rates thepain a 9/10. She reports episodes of seizures in the past, where she stares ahead and sometimes has trouble breathing. She states she used to take Topamax for that, now she states she is allergic to it?states that it makes her whole body feel like it is on fire. She also states she has been diagnosed with lupusand T2DM, PTSD, anxiety, panic attacks. She does become tearful during the examwhen asking if her can spend the night. She reports that she was at hospital for 2 to 3 months, states they gave her potassium to help her arms and legs. I could not find this in [employer]. She reports taking BuSpar at night to help with her sleep. While in the ER, stroke alert was called. CT of the head was negative for acutehemorrhage. [facility] neurology was consulted CTA of the head and neck was performed which showed no critical stenosis. EKG shows normal sinus rhythm, no ST elevation noted. Lab work in the ER was essentially unremarkable. Prolactin6.46. Upon arrival to the emergency room she was noted to have slurred speech, weakness in the right upper and lower extremities. She slowly came back to baseline. Matheus [facility] neurologist read CTA and saw no large vessel occlusion, believe the patient is likely postictal. Patient will be admitted asinpatient to the [facility] telemetry floor under the care of the hospitalist team for further evaluation and treatment. Review of Systems Review of Systems Review of systems: A 10 point review of systems was obtained, negative unless noted in the HPI or below. PMFSH Vaccinated for COVID-19?: No Medical History (Updated 01/20/23 @ 01:17 by Cole Flores DO) ADD (attention deficit disorder) Anxiety Fibromyalgia Kidney stones Migraine Nausea Panic attacks PTSD (post-traumatic stress disorder) Seizure last seizure probably about a month ago Sleep trouble TIA (transient ischemic attack) Surgical History H/O breast augmentation History of abdominoplasty History of surgery removal of kidney stone History of tonsillectomy Family History Family/Other Breast cancer Family/Other Breast cancer Social History Smoking Status: Current every day smoker Tobacco Type: cigarettes Substance Use Type: None Meds Medications and Allergies Allergies amoxicillin Adverse Reaction (Verified 01/19/23 21:01) Unknown Reaction pain medications Allergy (Uncoded 01/19/23 21:01) Unknown Reaction Home Medications alprazolam 1 mg tablet 1 mg PO BID 08/04/19 [History Confirmed 01/19/23] dextroamphetamine-amphetamine ER 30 mg 24hr capsule,extend release (Adderall XR)30 mg PO DIRECTED PRN Agitation 08/04/19 [History Confirmed 01/20/23] fluoxetine 40 mg capsule (Prozac) 80 mg PO QAM 08/04/19 [History Confirmed 01/20/23] ketorolac 10 mg tablet 10 mg PO DIRECTED PRN Migraine Headache 08/04/19 [History Confirmed 01/20/23] metoclopramide HCl 5 mg tablet 5 mg PO DIRECTED PRN Nausea 08/04/19 [History Confirmed 01/20/23] sucralfate 1 gram tablet 1 g PO QID 08/04/19 [History Confirmed 01/20/23] trazodone 50 mg tablet 25 mg PO QHS PRN Sleep 08/04/19 [History Confirmed 01/20/23] celecoxib 200 mg capsule 200 mg PO BID 01/20/23 [History Confirmed 01/20/23] cholecalciferol (vitamin D3) 25 mcg (1,000 unit) tablet (Vitamin D3) 25 mcg PO DAILY 01/20/23 [History Confirmed 01/20/23] fluoxetine 20 mg capsule 20 mg PO QAM 01/20/23 [History Confirmed 01/20/23] folic acid 1 mg tablet 1 mg PO DAILY 01/20/23 [History Confirmed 01/20/23] hydroxychloroquine 200 mg tablet 200 mg PO 1-2XD 01/20/23 [History Confirmed 01/20/23] levothyroxine 50 mcg tablet 50 mcg PO DAILY 01/20/23 [History Confirmed 01/20/23] metoclopramide HCl 10 mg tablet (Reglan) 10 mg PO BID.WITH.MEALS 01/20/23 [History Confirmed 01/20/23] omeprazole 20 mg capsule,delayed release 20 mg PO DAILY 01/20/23 [History Confirmed 01/20/23] omeprazole 20 mg capsule,delayed release mg 01/20/23 [History] tizanidine 4 mg tablet 4 mg PO HS 01/20/23 [History Confirmed 01/20/23] Exam Physical Exam Vital Signs: Temp Pulse Resp BP Pulse Ox O2 Del Method 97.8 F 75 18 137/85 98 Room Air 01/19/23 23:09 01/19/23 23:09 01/19/23 23:09 01/19/23 23:09 01/19/23 23:09 01/19/23 23:09 Narrative: CONST- Appears well -developed and well nourished. Obese HEAD - Normocephalic and atraumatic EENT-Sclera reddened, eyes swollen from crying, conjunctive are non-erythemic, moist oral mucosa, pharynx clear NECK-Supple, no cervical lymphadenopathy CARDIAC-normal rate, regular rhythm, S1 & S2. PULM-diminished without wheeze or rhonchi, RA, no accessory muscle use or cough noted ABD - Soft. Bowel sounds are normal. No distention. No tenderness EXTREM-no edema BLE calves, nontender SKIN- W/D good turgor MS- MAEX2 spontaneously with equal with equal strength, weakness to RUE, RLE. Moving RLE on her own. No effort against gravity with RUE, moving fingers NEURO- A&Ox3 speech clear and tongue midline, equal facial symmetry, right sidedparesthesia PSYCH-Mood, affect, and behavior appropriate, anxiety, tearful Results Lab Results Labs: Laboratory Last Values Corrected WBC 11.2 X10E3/uL (3.8-11.6) 01/19/23 21:00 Uncorrected WBC Count 11.2 x10E3/uL (3.8-11.6) 01/19/23 21:00 RBC 4.81 X10E6/uL (3.60-5.00) 01/19/23 21:00 Hgb 15.2 g/dL (11.8-15.4) 01/19/23 21:00 Hct 44.0 % (34.0-46.4) 01/19/23 21:00 MCV 91.6 fl (80-100) 01/19/23 21:00 MCH 31.6 pg (24.7-34.3) 01/19/23 21:00 MCHC 34.5 g/dL (32.0-35.0) 01/19/23 21:00 RDW 13.8 % (11.9-15.3) 01/19/23 21:00 Plt Count 249 x10E3/uL (150-450) 01/19/23 21:00 MPV 7.7 fl (6.3-10.7) 01/19/23 21:00 Neut % (Auto) 61.4 % (.) 01/19/23 21:00 Lymph % (Auto) 32.5 % (.) 01/19/23 21:00 Major % (Auto) 4.6 % (.) 01/19/23 21:00 Eos % (Auto) 0.7 % (.) 01/19/23 21:00 Baso % (Auto) 0.8 % (.) 01/19/23 21:00 Nucleat RBC Rel Count 0.1 /100 WBC (0-0.5) 01/19/23 21:00 Neut # (Auto) 6.9 x10E3/uL (1.8-7.7) 01/19/23 21:00 Lymph # (Auto) 3.7 x10E3/uL (1.00-4.8) 01/19/23 21:00 Major # (Auto) 0.5 x10E3/uL (0.0-0.8) 01/19/23 21:00 Eos # (Auto) 0.1 x10E3/uL (0.0-0.45) 01/19/23 21:00 Baso # (Auto) 0.1 x10E3/uL (0.0-0.2) 01/19/23 21:00 Monocyte Dist Width 20.61 % (0.00-20.00) H 01/19/23 21:00 PT 11.1 Seconds (9.0-12.9) 01/19/23 21:00 INR 1.0 01/19/23 21:00 APTT 33.9 Seconds (25.1-36.5) 01/19/23 21:00 PHA Creatinine Clear 109.71 01/19/23 21:00 Sodium 140 mmol/L (136-145) 01/19/23 21:00 Potassium 3.6 mmol/L (3.5-5.1) 01/19/23 21:00 Chloride 107 mmol/L (98-107) 01/19/23 21:00 Carbon Dioxide 24.9 mmol/L (21.0-31.0) 01/19/23 21:00 Anion Gap 11.7 mEq/L (6.0-15.0) 01/19/23 21:00 BUN 12 mg/dL (7-25) 01/19/23 21:00 Creatinine 0.79 mg/dL (0.60-1.20) 01/19/23 21:00 Est GFR (CKD-EPI) > 60.0 mL/Min 01/19/23 21:00 Glucose 79 mg/dL (70-100) 01/19/23 21:00 Calcium 9.2 mg/dL (8.6-10.3) 01/19/23 21:00 Total Bilirubin 0.5 mg/dl (0.3-1.0) 01/19/23 21:00 AST 13 U/L (13-39) 01/19/23 21:00 ALT 18 U/L (7-52) 01/19/23 21:00 Alkaline Phosphatase 60 U/L (34-104) 01/19/23 21:00 Total Creatine Kinase 72 U/L (30-223) 01/19/23 21:00 Troponin I High Sens 3.0 pg/mL (0.0-15.0) 01/19/23 21:00 Total Protein 6.9 gm/dL (6.4-8.9) 01/19/23 21:00 Albumin 4.2 gm/dL (3.5-5.7) 01/19/23 21:00 Globulin 2.7 gm/dL 01/19/23 21:00 Albumin/Globulin Ratio 1.6 01/19/23 21:00 Prolactin 6.46 ng/mL (3.34-26.72) 01/19/23 21:00 Assessment & Plan Assessment/Plan (1) Seizure: (2) Stroke: (3) Hemiparesis of right dominant side: (4) Aphasia: (5) Cephalgia: Plan Seizure?possibly postictal ? Seizure precautions ? Start Keppra Possible stroke vs TIA vs other. Pt with reported weakness of right side of face, Right Upper Extremity, Right Lower Extremity. Severe Cephalgia ? Neurochecks every 4 hours ? Echo in a.m., bubble study please ? MRI brain without in a.m. ? Consult neurology for seizure activity, TIA vs CVA Chronic conditions T2DM?fingersticks ACHS, SSIC Anxiety?resume alprazolam?made as needed History of headaches with an acute headache now?IV ketorolac as needed, Imitrex x1, IV hydration overnight, consider IV magnesium. DVT PPx?SCDs, enoxaparin Diet order?1800 ADA CODE STATUS?full code ++++ ++++ I personally saw this patient on the day of the encounter, reviewed the relevanthistory, performed the baker elements of the physical exam, and discussed and formulated the plan of care with the Nurse Practitioner, and I confirm the NursePractitioner's documentation as written. IP vs OBS Justification Based on differential dx, clinical care plan, and risk of adverse events, if untreated, in my clinical judgement this patient requires an acute care setting as: INPATIENT because of an expectation of an over 2 midnight stay. Estimated length of stay (# of days): 3 Documented By: Jaqui Peace APRN 01/20/23 0001 Signed By: <Electronically signed by EVE Peace> 01/20/23 0102 <Electronically signed by Cole Flores DO> 01/20/23 0119 [facility] Work Phone: [place] complaint Narrative - Reported* Memory changes * Neurologic Evaluation. * An interactive audio and video telecommunication system which permits real time communications between the patient (at the originating site) and provider (at the distant site) was utilized to providethis telehealth service. * Verbal consent was requested and obtained from JOHANNA SHANNON on this date, 03/25/2023 01:00 PM , for a telehealth visit. [id number] Work Phone: chiep complaint Narrative - Reported* Memory changes * Neurologic Evaluation. * An interactive audio and video telecommunication system which permits real time communications between the patient (at the originating site) and provider (at the distant site) [facility]. * Verbal consent was requested and obtained from JOHANNA SHANNON on this date, 03/25/2023 01:00 PM , for a telehealth visit. [facility] Work Phone: evaluation + Plan note Future Appointments Appointment Date:04/19/2024 01:40:00 PM Scheduled Provider:KRISTINE WINCHESTER CNP Location:[facility] Appointment Type:[facility] Evaluation + Plan note Future Appointments Appointment Date:06/21/2024 02:40:00 PM Scheduled Provider:KRISTINE WINCHESTER CNP Location:[facility] Appointment Type:[facility] Evaluation + Plan note Future Appointments Appointment Date:07/19/2024 02:40:00 PM Scheduled Provider:KRISTINE WINCHESTER CNP Location:[facility] Appointment Type:[facility] Diagnostic Tests Pending * Cortisol 06/21/24 * Testosterone Level Total 06/21/24 * FSH and LH 06/21/24 * Estrogens Total 06/21/24 [facility] evaluation noteNo assessment information available [facility] Work Phone: evaluation note* Diagnosis Onset Date Resolution Status Seizure acute [facility] Work Phone: evaluation note* Diagnosis Onset Date Resolution Status Aphasia acute Cephalgia acute Hemiparesis of right dominant side acute Seizure acute Stroke acute [facility] Work Phone: evaluation note* Diagnosis S/P arthroscopy of left shoulder- Primary [facility] Diagnosis THEO (generalized anxiety disorder) ([facility]) Generalized anxiety disorder Marital conflict Counseling for marital and partner problems, unspecified [facility]* Diagnosis Type 2 diabetes mellitus without complication, without long-term current use of insulin ([facility])- Primary Acquired hypothyroidism Unspecified hypothyroidism Hypertension, unspecified type History of PCOS Personal history of other genital system and obstetric disorders Obesity, class 3 Depression, unspecified depression type [facility] Diagnosis Onset Date Resolution Status Admit Date Hyperlipidemia acute June 242023 10:51am [facility] Work Phone: Evaluation note* Diagnosis Pre-op testing- Primary Unspecified pre-operative examination Left shoulder pain, unspecified chronicity documented in this encounter [facility]* Diagnosis Migraine without status migrainosus, not intractable, unspecified migraine type (CMS/HCC) documented in this encounter [facility]* Diagnosis Benign essential HTN (CMS/HCC) documented in this encounter [facility]* Diagnosis THEO (generalized anxiety disorder) ([facility]/HCC) Generalized anxiety disorder Marital conflict Counseling for marital and partner problems, unspecified documented in this encounter [facility]* Diagnosis THEO (generalized anxiety disorder) ([facility]/HCC) Generalized anxiety disorder Marital conflict Counseling for marital and partner problems, unspecified documented in this encounter [facility]* Diagnosis Hormone imbalance Hormone disorder Unspecified endocrine disorder Breast cancer screening by mammogram documented in this encounter [facility]* Diagnosis THEO (generalized anxiety disorder) ([facility]/HCC) Generalized anxiety disorder Marital conflict Counseling for marital and partner problems, unspecified documented [facility] this encounter [facility] Narrative No data available for this section [facility] Hospital Discharge instructions Additional Instructions No driving, tub bathing alone, swimming alone until seizure free for 6 months and until cleared by neurology. Verapamil was started for migraine prevention but you need to follow with neurologist for further evaluation and treatment Our psychiatrist at this point recommended to continue with Prozac and Cymbalta and follow with psychiatrist or your doctor who prescribes Prozac as [facility] Discharge instructions No data available for this section [facility] Progress note No data available for this section [facility] Chief Complaint and Reason for Visit Chief Complaint UCTD, M15.0, fibromy algia, Z79.899 Chief Complaint M35.9/M79.7/M15.0/Z7 9.899 seizure Reason for Visit Seizure Chief Complaint M35.9/M79.7/M15.0/Z7 9.899 seizure Reason for Visit Aphasia Cephalgia Hemiparesis of right dominant side Seizure Stroke Chief Complaint Admit Date est care July 07, 2024 10:51am Reason for Visit Admit Date [facility] July 07, 2024 10:51am Advance Directives No Advanced Directives Records Found Advance Directive Response Recorded Date/ Time Advance Directives No June 23, 2018 7:43pm Advance Directive Response Recorded Date/ Time Advance Directives No June 23, 2018 6:43pm Summary Purpose Family History Unknown Family Member Name Dates Details Diabetes Mellitus: Father(V1 8.0) Status:Active Transient Ischemic Attack: M other Status:Active Migraine Headache: Mother Status:Active Thyroid Disorder: Mother(V18 .19) Status:Active Attention-deficit Hyperactiv ity Disorder: Family History Status:Active Cancer: Family History Status:Active Stroke Syndrome: Family Hist ory(V17.1) Status:Active Heart Disease: Family Histor y(V17.49) Status:Active Hypertension: Family History (V17.49) Status:Active No Family History Records Found Additional Source Comments Care Teams (unrecognized sec tion and content) Team Status: Active Member Role Status Taylor Song DO Primary Care Provider Active Team Status: Inactive Member Role Status Taylor Song DO Primary Care Provider Active Sung Hutchison MD Attending Provider Active Team Status: Active Member Role Status Dates Robert Dubois , DO Emergency Provider Active Bret Song DO Primary Care Provider Active Cole Flores , DO Admit Provider, Attending Yasmin mcdonough Active Team Status: Inactive Member Role Status Taylor Dubois , DO Emergency Provider Active Bret Song DO Primary Care Provider Active Cole Flores , DO Admit Provider Active Janeth Scherer MD Attending Provider Active Jay Walker DO Other Provider Active Zion Valderrama MD Other Provider Active Team Status: Inactive Member Role Status Taylor Song DO Primary Care Provider Active Sundeep Hutchison MD Attending Provider Active Team Status: Inactive Member Role Status Taylor Song DO Primary Care Provider Active MARY Gant Attending Provider Active Team Status: Inactive Member Role Status Dates Bret Song DO Primary Care Provider Active St art: January 07, 2024 End: January 07, 2024 JOSUE GantC Attending Provider Active Start: January 07, 2024 End: January 07, 2024 [employer] Supervisor Relationship Specialty Start Date End Date Bret Song DO [address] [place] [address] PCP - General Family Medicine 06/02/12 Team Status: Active Member Role Status Dates Jannette Turner DO Primary Care Provider Active Team Status: Inactive Member Role Status Dates Bret Song DO Primary Care Provider Active St art: July 07, 2024 End: July 07, 2024 Jannette Turner DO Attending Provider Active S tart: July 07, 2024 End: July 07, 2024 [employer] Specialist Supervisor Relationship Specialty Start Date End Date Kaylee Guerra [facility] [address] [place] [address] [facility] 09/06/24 [employer] Supervisor Relationship Specialty Start Date End Date Kaylee Guerra [facility] [address] [place] [address] [facility] 09/06/24 Goals (unrecognized section and content) Goals may be documented in a n alternate sectionGoals may be documented in an alternate sectionGoals may be documented in an alternate sectionGoals may be documented in an alternate sectionGoals may be documented in an alternate sectionGoals may be documented in an alternate sectionGoals may be documented in an alternate section No data available for this section No data available for this section No data available for this sectionGoals may be documented in an alternate section INFORMATION SOURCE (unrecogn ized section and content) DATE CREATED AUTHOR 11/26/2022 [facility] DATE CREATED AUTHOR AUTHOR'S ORGANIZ ATION 03/26/2023 [employer] DATE CREATED AUTHOR AUTHOR'S ORGANIZ ATION 03/27/2023 [facility] DATE CREATED AUTHOR AUTHOR'S ORGANIZ ATION 01/10/2024 [facility] DATE CREATED AUTHOR AUTHOR'S ORGANIZ ATION 06/27/2024 [facility] DATE CREATED AUTHOR AUTHOR'S ORGANIZ ATION 06/30/2024 [facility] DATE CREATED AUTHOR AUTHOR'S ORGANIZ ATION 07/21/2024 [facility] DATE CREATED AUTHOR AUTHOR'S ORGANIZ ATION 09/10/2024 [facility] EPIC DATE CREATED AUTHOR AUTHOR'S ORGANIZ ATION 09/12/2024 [facility] Reason for Visit (unrecogniz ed section and content) Reason Comments Follow-up Specialty Diagnoses / Procedures Referred By Nayana najera Referred To Contact Behavioral Health Diagnoses Generalized anxiety disorder (CMS/HCC) Procedures [place] PSYCHIATRIC DIAGNOSTIC EVALUATION [facility] [address] [place] [address] Phone: tel: fax: Kaylee Guerra, [facility] [address] [place] [address] Phone: tel: fax: Referral ID Status Reason Start Date Expiration Date Visits Re quested Visits Authorized [id number] Closed 08/04/2024 01/31/2025 1 1 Reason Comments Post-op Scope 05/13/24 Reason Comments New Patient Reason Comments Follow-up MRI [facility] 04/27/24 Reason Comments Med Refill Reason Comments Anxiety Family Problem Specialty Diagnoses / Procedures Referred By Nayana najera Referred To Contact Behavioral Health Diagnoses Couples Counseling. Procedures Couples Counseling. [facility]oms [facility] [address] [place] [address] Kaylee Guerra, [facility] [address] [place] [address] Referral ID Status Reason Start Date Expiration Date Visits Re quested Visits Authorized [id number] Closed 04/26/2024 10/23/2024 1 1 Reason Comments hormones Source Comments (unrecognize d section and content) In the event this informatio n is protected by the Federal Confidentiality of Alcohol and Drug Abuse Patient Records regulations: The Federal rules restrict any use of the information to criminally investigate or prosecute any alcohol or drug abuse patient.[facility] FOR RECORDS PERTAINING TO PATIENTS WHO ARE OR HAVE BEEN ENROLLED IN A CHEMICAL DEPENDENCY/SUBSTANCEABUSE PROGRAM, SOME INFORMATION MAY BE OMITTED. This clinical summary was aggregated from multiple sources. Caution should be exercised in using it in the provision of clinical care. This summary normalizes information from multiple sources, and as a consequence, information in this document may materially change the coding, format and clinical context of patient data. In addition, data may be omitted in some cases. CLINICAL DECISIONS SHOULD BE BASED ON THE PRIMARY CLINICAL RECORDS. [employer] [facility] provides no warranty or guarantee of the accuracy or completeness of information in this document.
[2024-09-26 20:07] LABS: Age Gdln ACOG Testing Note (.); HPV Aptima Positive (Negative); HPV Genotype 16 Negative (Negative); HPV Genotype 18,45 Negative (Negative); IGP, Aptima HPV, rfx 16/18,45 Note (.)
== END 2024-09-20 20:44 | disposition home or self-care (01) ==
LOC: LAB 20:43
PROVIDERS: PCP Family Medicine; Visit Provider Obstetrics & Gynecology
DX: Z01.419 Encounter for gynecological examination (general) (routine) without abnormal findings (principal)
CPT/HCPCS: 87624; 87625; 88175